=== PATIENT | male | born 1955 | race Caucasian/White ===

== ENCOUNTER 2018-11-07 22:08 | Emergency (ER) | payer OTHER, SELFPAY ==
[2018-11-07 22:09] VITALS: BP 127/87; PULSE 97; RESP 16; TEMP 36.9; O2SAT 96; BMI 27.4
--- NOTE | 2018-11-07 22:52 | RAD_ITS ---
STUDY: X-RAY - RIGHT ANKLE REASON FOR EXAM: Male, 62 years old. Infection TECHNIQUE: 3 view(s) of the ankle. COMPARISON: None. FINDINGS: Mild degenerative changes. Plantar calcaneal spur. No acute fracture. No dislocation. There is soft tissue swelling. Soft tissue ulceration along the superior aspect of the medial malleolus. No radiopaque foreign body. No periosteal reaction or osseous destruction identified. RAD/Ankle min 3 Views IMPRESSION: Soft tissue swelling with soft tissue ulceration. No acute fracture identified. Electronically Signed: Hussain Waggoner, at 23:06 EDT Tel , Service support ,
[2018-11-07 23:47] LABS: Anion Gap 7 (5-15); BUN 28 mg/dL (7-18); BUN/Creat Ratio 29.2 RATIO (10-20); Calcium,Total 8.8 mg/dL (8.5-10.1); Chloride 101 mmol/L (98-107); Creatinine, Serum 0.96 mg/dL (0.70-1.30); EST Glomerular Filtration Rate 84 mL/min (>60); Est Glom Filt Rate - Afr Amer 102 mL/min (>60); Estimated Creatinine Clearance 81.32 ml/min; Glucose 97 mg/dL (74-106); Potassium 4.1 mmol/L (3.5-5.1); Sodium Level 138 mmol/L (136-145)
[2018-11-07 23:49] LABS: Absolute Lymphocyte Count 1.03 X10^3/ul (0.83-4.51); Absolute Neutrophil Count 3.7 X10^3/uL (2.0-7.7); Basophil# 0.03 X10^3/uL; Basophil% 0.5 % (0-1); Eosinophil# 0.16 X10^3/uL; Eosinophils% 2.9 % (0-5); Hematocrit 37.9 % (40-54); Hemoglobin 12.4 g/dl (13.0-16.5); Lymphocyte # 1.03 X10^3/ul (4.0); Lymphocyte % 18.5 % (19-41); Mean Corp Hgb Conc 32.7 g/gl (32-36); Mean Corpuscular Hgb 29.5 pg (27.0-32.0); Mean Platelet Vol. 9.5 fl (6.2-12.0); Monocyte# 0.63 X10^3/uL; Monocyte% 11.3 % (0-10); Neutrophil # 3.71 X10^3/uL (2.7-7.7); Neutrophil % 66.8 % (47-70); Platelet Count 233 K/mm3 (150-450); RBC Distribution Width CV 13.6 % (11.6-14.6); RBC Distribution Width SD 44.1 fl (35.1-43.9); Red Blood Count 4.21 M/mm3 (4.6-6.2); White Blood Count 5.6 K/mm3 (4.4-11.0)
[2018-11-07 23:51] LABS: POSITIVE COUNT NO; POSITIVE DIFFERENTIAL NO; POSITIVE MORPHOLOGY NO
--- NOTE | 2018-11-08 00:17 | ED.VISSUMM ---
- ER Visit Summary Date of Service: 11/08/18 Chief Complaint: Right ankle wound History of Present Illness: The patient is a 62 M with a wound to the medial right ankle for the past 1 year. Patient states that he was on antibiotics at onset but has not followed up since. He is in a plan to see his doctor in December. He has not had fever or chills. Physical Examination: Vital signs unremarkable. Patient is afebrile. Heart is regular rate and rhythm. Lung sounds clear. Right lower extremity examination was a 4 x 2 7 m scabbed wound on the medial right ankle. There is no surrounding cellulitis. No drainage. Test Results: CBC was normal white count. Hemoglobin is 12.4. Chemistry studies unremarkable. Blood cultures were sent. Right ankle x-rays reveal no bony abnormality per my review. Emergency Department Course and Treatment: Wound was cleansed and antibiotic ointment placed. Dressing is applied. Patient will be referred to the wound center for follow-up. I do not see sign of acute infection at this time I do not think he needs oral antibiotics. Treatment Plan: [] Disposition: Discharge Impression: Chronic right ankle wound This note was generated with [employer] dictation software. It may contain incorrect words, spelling, and punctuation that were not noted in review of the chart prior to signing ED Disposition - Plan for ED Patient: Disposition: Home or Assisted Living Instructions: ED Wound Care Referrals: Delon Ocasio MD [Primary Care Provider] - Additional Instructions: Please call the Wound Center for follow-up as soon as possible [phone]
[2018-11-08 00:20] VITALS: BP 125/90; PULSE 87; PULSE 89; RESP 18; O2SAT 98
== END 2018-11-08 00:28 | disposition home or self-care (01) ==
PROVIDERS: Emergency Provider Emergency Medicine; Family Provider Family Medicine; PCP Family Medicine
DX: S91.001A Unspecified open wound, right ankle, initial encounter (principal); X58.XXXA Exposure to other specified factors, initial encounter; Y93.9 Activity, unspecified; Y92.9 Unspecified place or not applicable; I10 Essential (primary) hypertension; F20.9 Schizophrenia, unspecified; Z79.899 Other long term (current) drug therapy
CPT/HCPCS: 73610; 80048; 85025; 87040; 99283; A4216

== ENCOUNTER 2018-12-01 10:30 | Outpatient (RCR) | payer OTHER, SELFPAY ==
[2018-11-10 09:27] VITALS: BP 126/72; PULSE 112; RESP 18; TEMP 36.8; BMI 27.4
--- NOTE | 2018-11-10 13:08 | PCM.WC.PN ---
(1) Ulcer of right lower extremity with fat layer exposed Status: Acute Current Visit: Yes Code(s): L97.912 - Non-pressure chronic ulcer of unspecified part of right lower leg with fat layer exposed (2) Delayed wound healing Status: Acute Current Visit: Yes Code(s): T14.8XXD - Other injury of unspecified body region, subsequent encounter (3) Pain in right lower leg Status: Acute Current Visit: Yes Code(s): M79.661 - Pain in right lower leg (4) Lower extremity edema Status: Acute Current Visit: Yes Code(s): R60.0 - Localized edema (5) PVD (peripheral vascular disease) Status: Suspected Current Visit: Yes Code(s): I73.9 - Peripheral vascular disease, unspecified (6) Venous insufficiency (chronic) (peripheral) Status: Suspected Current Visit: Yes Code(s): I87.2 - Venous insufficiency (chronic) (peripheral) Type of Wound Date of Service: 11/10/18 Chief Complaint: right lower extremity ulcer - Physical Exam Vital Signs Temp Pulse Resp BP 98.2 F 112 H 18 126/72 H 11/10/18 09:27 11/10/18 09:27 11/10/18 09:27 11/10/18 09:27 Wound Measurements and Assessment WC - Nurse 1 - General Ulcer Measurement Start: 11/10/18 09:27 Freq: Status: Active Protocol: Activity Type Activity Date Activity User E-Sign Co-Sign Detail Recorded Client Recorded Date Recorded By Document 11/10/18 09:27 IA [id number] 11/10/18 09:41 IA 11/10/18 09:27 Wound Center Nurse 1 [Ulcer Assessment] #1 Right Medial Ankle -Current Size (cm) - Length 3.3 -Current Size (cm) - Width 2.4 -Current Size (cm) - Depth 0.3 -Total Square Cm 7.92 -Date of Last Picture (Recall this 11/10/18 field) -Photo Taken Yes -Tunneling No -Undermining/Tunneling No -Circular Undermining No -Exudate Amt Medium -Exudate Type Serosanguineous -Wound Margin Flat & Intact -Granulation Amt Medium (34-66%) -Granulation Quality Pale [place] -Necrosis Amt Medium (34-66%) -Necrotic Tissue Type Adherent Slough -Texture (Dee-wound Skin Appearance) Assessed -Moisture (Dee-wound Skin Appearance Assessed ) -Color (Dee-wound Skin Appearance) Assessed Hemosiderin Staining -Temperature (Dee-wound Skin No Abnormality Appearance) (Pt Warm) -Tenderness on Palpation (Dee-wound No Skin Appearance) -Ulcer Cleansing Rinsed/ Irrigated with Saline -Foul Odor after Cleansing No -Anesthetic Used 4% Lidocaine Solution [Edema Assessment] -Right Calf (cm) 37.6 -Right Ankle (cm) 24.3 -Left Calf (cm) 35 -Left Ankle (cm) 21.8 WC - Nurse 2 - General Ulcer CM Notes Start: 11/10/18 09:27 Freq: Status: Active Protocol: Activity Type Activity Date Activity User E-Sign Co-Sign Detail Recorded Client Recorded Date Recorded By Document 11/10/18 10:21 AN [id number] 11/10/18 10:27 AN 11/10/18 10:21 Wound Center Nurse 2 [Procedure/Treatment] #1 Right Medial Ankle -Time 10:25 -Correct Patient Yes -Correct Side, Site, Position Yes -Correct Procedure Yes -Procedure Performed Yes -Type of Procedure Debridement -Clinical Debridement Subcutaneous -Post Debridement Size (cm) - Length 3.5 -Post Debridement Size (cm) - Width 2.7 -Post Debridement Size (cm) - Depth 0.3 -Total Square Cm 9.45 -Wound/Ulcer Outcome Not Healed -Ulcer Cleansing Rinsed/ Irrigated with Saline -Foul Odor after Cleansing No -Bioengineered Tissue No -Bleeding Controlled with Pressure -Offloading No -Treatment Response Procedure Tolerated Well [See Physician Procedure note for Specifics] Pain Scale: 0-10 Numeric [Pain] -Is Patient Pain Free? Yes Debridement Note Post-Debridement Measurements/Treatment WC - Nurse 2 - General Ulcer CM Notes Start: 11/10/18 09:27 Freq: Status: Active Protocol: Activity Type Activity Date Activity User E-Sign Co-Sign Detail Recorded Client Recorded Date Recorded By Document 11/10/18 10:21 AN [id number] 11/10/18 10:27 AN 11/10/18 10:21 Wound Center Nurse 2 #1 Right Medial Ankle -Time 10:25 -Correct Patient Yes -Correct Side, Site, Position Yes -Correct Procedure Yes -Procedure Performed Yes -Type of Procedure Debridement -Clinical Debridement Subcutaneous -Post Debridement Size (cm) - Length 3.5 -Post Debridement Size (cm) - Width 2.7 -Post Debridement Size (cm) - Depth 0.3 -Total Square Cm 9.45 -Wound/Ulcer Outcome Not Healed -Ulcer Cleansing Rinsed/ Irrigated with Saline -Foul Odor after Cleansing No -Bioengineered Tissue No -Bleeding Controlled with Pressure -Offloading No -Treatment Response Procedure Tolerated Well Pain Scale: 0-10 Numeric Is Patient Pain Free? Yes Assessment/Plan Active Problems Ulcer of right lower extremity with fat layer exposed (Acute) Delayed wound healing (Acute) Pain in right lower leg (Acute) Lower extremity edema (Acute)
--- NOTE | 2018-11-10 13:16 | PN.PCM_ITS ---
(1) Ulcer of right lower extremity with fat layer exposed Status: Acute Current Visit: Yes Code(s): L97.912 - Non-pressure chronic ulcer of unspecified part of right lower leg with fat layer exposed (2) Delayed wound healing Status: Acute Current Visit: Yes Code(s): T14.8XXD - Other injury of unspecified body region, subsequent encounter (3) Pain in right lower leg Status: Acute Current Visit: Yes Code(s): M79.661 - Pain in right lower leg (4) Lower extremity edema Status: Acute Current Visit: Yes Code(s): R60.0 - Localized edema (5) PVD (peripheral vascular disease) Status: Suspected Current Visit: Yes Code(s): I73.9 - Peripheral vascular disease, unspecified (6) Venous insufficiency (chronic) (peripheral) Status: Suspected Current Visit: Yes Code(s): I87.2 - Venous insufficiency (chronic) (peripheral) Type of Wound Date of Service: 11/10/18 Chief Complaint: right lower extremity ulcer - Physical Exam Vital Signs Temp Pulse Resp BP 98.2 F 112 H 18 126/72 H 11/10/18 09:27 11/10/18 09:27 11/10/18 09:27 11/10/18 09:27 Wound Measurements and Assessment WC - Nurse 1 - General Ulcer Measurement Start: 11/10/18 09:27 Freq: Status: Active Protocol: Activity Type Activity Date Activity User E-Sign Co-Sign Detail Recorded Client Recorded Date Recorded By Document 11/10/18 09:27 CT [id number] 11/10/18 09:41 CT 11/10/18 09:27 Wound Center Nurse 1 [Ulcer Assessment] #1 Right Medial Ankle -Current Size (cm) - Length 3.3 -Current Size (cm) - Width 2.4 -Current Size (cm) - Depth 0.3 -Total Square Cm 7.92 -Date of Last Picture (Recall this 11/10/18 field) -Photo Taken Yes -Tunneling No -Undermining/Tunneling No -Circular Undermining No -Exudate Amt Medium -Exudate Type Serosanguineous -Wound Margin Flat & Intact -Granulation Amt Medium (34-66%) -Granulation Quality Pale [place] -Necrosis Amt Medium (34-66%) -Necrotic Tissue Type Adherent Slough -Texture (Dee-wound Skin Appearance) Assessed -Moisture (Dee-wound Skin Appearance Assessed ) -Color (Dee-wound Skin Appearance) Assessed Hemosiderin Staining -Temperature (Dee-wound Skin No Abnormality Appearance) (Pt Warm) -Tenderness on Palpation (Dee-wound No Skin Appearance) -Ulcer Cleansing Rinsed/ Irrigated with Saline -Foul Odor after Cleansing No -Anesthetic Used 4% Lidocaine Solution [Edema Assessment] -Right Calf (cm) 37.6 -Right Ankle (cm) 24.3 -Left Calf (cm) 35 -Left Ankle (cm) 21.8 WC - Nurse 2 - General Ulcer CM Notes Start: 11/10/18 09:27 Freq: Status: Active Protocol: Activity Type Activity Date Activity User E-Sign Co-Sign Detail Recorded Client Recorded Date Recorded By Document 11/10/18 10:21 AN [id number] 11/10/18 10:27 AN 11/10/18 10:21 Wound Center Nurse 2 [Procedure/Treatment] #1 Right Medial Ankle -Time 10:25 -Correct Patient Yes -Correct Side, Site, Position Yes -Correct Procedure Yes -Procedure Performed Yes -Type of Procedure Debridement -Clinical Debridement Subcutaneous -Post Debridement Size (cm) - Length 3.5 -Post Debridement Size (cm) - Width 2.7 -Post Debridement Size (cm) - Depth 0.3 -Total Square Cm 9.45 -Wound/Ulcer Outcome Not Healed -Ulcer Cleansing Rinsed/ Irrigated with Saline -Foul Odor after Cleansing No -Bioengineered Tissue No -Bleeding Controlled with Pressure -Offloading No -Treatment Response Procedure Tolerated Well [See Physician Procedure note for Specifics] Pain Scale: 0-10 Numeric [Pain] -Is Patient Pain Free? Yes Debridement Note Post-Debridement Measurements/Treatment WC - Nurse 2 - General Ulcer CM Notes Start: 11/10/18 09:27 Freq: Status: Active Protocol: Activity Type Activity Date Activity User E-Sign Co-Sign Detail Recorded Client Recorded Date Recorded By Document 11/10/18 10:21 AN [id number] 11/10/18 10:27 AN 11/10/18 10:21 Wound Center Nurse 2 #1 Right Medial Ankle -Time 10:25 -Correct Patient Yes -Correct Side, Site, Position Yes -Correct Procedure Yes -Procedure Performed Yes -Type of Procedure Debridement -Clinical Debridement Subcutaneous -Post Debridement Size (cm) - Length 3.5 -Post Debridement Size (cm) - Width 2.7 -Post Debridement Size (cm) - Depth 0.3 -Total Square Cm 9.45 -Wound/Ulcer Outcome Not Healed -Ulcer Cleansing Rinsed/ Irrigated with Saline -Foul Odor after Cleansing No -Bioengineered Tissue No -Bleeding Controlled with Pressure -Offloading No -Treatment Response Procedure Tolerated Well Pain Scale: 0-10 Numeric Is Patient Pain Free? Yes Assessment/Plan Active Problems Ulcer of right lower extremity with fat layer exposed (Acute) Delayed wound healing (Acute) Pain in right lower leg (Acute) Lower extremity edema (Acute)
--- NOTE | 2018-11-10 13:21 | HP.PCM_ITS ---
(1) Ulcer of right lower extremity with fat layer exposed Status: Acute Current Visit: Yes Code(s): L97.912 - Non-pressure chronic ulcer of unspecified part of right lower leg with fat layer exposed (2) Delayed wound healing Status: Acute Current Visit: Yes Code(s): T14.8XXD - Other injury of unspecified body region, subsequent encounter (3) Pain in right lower leg Status: Acute Current Visit: Yes Code(s): M79.661 - Pain in right lower leg (4) Lower extremity edema Status: Acute Current Visit: Yes Code(s): R60.0 - Localized edema (5) PVD (peripheral vascular disease) Status: Suspected Current Visit: Yes Code(s): I73.9 - Peripheral vascular disease, unspecified (6) Venous insufficiency (chronic) (peripheral) Status: Suspected Current Visit: Yes Code(s): I87.2 - Venous insufficiency (chronic) (peripheral) History of Present Illness Date of Service: 11/10/18 Chief Complaint: right lower extremity ulcer History of Wound: This 62-year-old male was referred to the wound healing center for right medial lower extremity ulcer. Patient says this ulcer has been open for close to a year. He says when he initially noticed it, he was seen at an urgent care facility where he took an antibiotic. He said he never followed up with anyone for the ulcer after that. He says he has been dressing the site on his own with Neosporin and a bandage. He says the ulcer site is not getting any worse, but it is not improving either. He denies any purulence to the area or any other signs of infection. Past Medical History Allergies/Adverse Reactions: Allergies fluphenazine enanthate [From Prolixin] Adverse Reaction (Verified 02/12/15 01:02) Vomiting fluphenazine HCl [From Prolixin] Adverse Reaction (Verified 02/12/15 01:02) Vomiting haloperidol [From Haldol] Adverse Reaction (Verified 02/12/15 01:02) Other haloperidol lactate [From Haldol] Adverse Reaction (Verified 02/12/15 01:02) Other trifluoperazine [From Stelazine] Adverse Reaction (Verified 11/07/18 22:25) Vomiting Home Medications: Ambulatory Orders Medication Instructions Recorded Chlorpromazine HCl 150 mg PO QHS 11/07/18 Lisinopril [Zestril] 10 mg PO DAILY 11/07/18 Smoking Status: Never smoker Review of Systems Constitutional: Denies: Chills, Fever, Weight Change Cardiovascular: Denies: Chest Pain, Palpitations Respiratory: Denies: Cough, Shortness of Breath Gastrointestinal: Denies: Diarrhea, Nausea, Vomiting Musculoskeletal: Reports: Leg Pain Skin: Reports: - - ulcer right lower leg - Physical Exam Vital Signs Temp Pulse Resp BP 98.2 F 112 H 18 126/72 H 11/10/18 09:27 11/10/18 09:27 11/10/18 09:27 11/10/18 09:27 General: Alert, Oriented x3, Cooperative, No apparent distress Extremities: No cyanosis, Capillary Refill Less than 3 Seconds - To all distal digits, No Calf Tenderness - Negative Jeny and Bonilla signs bilateral, Diminished Peripheral Pulses - DP pulse palpable and PT pulse nonpalpable, Edema - Bilateral lower extremity edema with right being worse than left Skin: Ulcer/ Wound - Ulcer noted to right medial ankle with fat layer exposed. Measurements are noted below. The base is a mixture of adherent slough, fibrin, biofilm, granular tissue, and some slight surrounding hyperkeratotic tissue. There is no probing to bone, no tracking, no undermining, no purulence, no malodor, no surrounding cellulitis, and no increase in warmth., - - Hemosiderin skin deposit changes appreciated close to ulcer site Wound Measurements and Assessment WC - Nurse 1 - General Ulcer Measurement Start: 11/10/18 09:27 Freq: Status: Active Protocol: Activity Type Activity Date Activity User E-Sign Co-Sign Detail Recorded Client Recorded Date Recorded By Document 11/10/18 09:27 MA [id number] 11/10/18 09:41 MA 11/10/18 09:27 Wound Center Nurse 1 [Ulcer Assessment] #1 Right Medial Ankle -Current Size (cm) - Length 3.3 -Current Size (cm) - Width 2.4 -Current Size (cm) - Depth 0.3 -Total Square Cm 7.92 -Date of Last Picture (Recall this 11/10/18 field) -Photo Taken Yes -Tunneling No -Undermining/Tunneling No -Circular Undermining No -Exudate Amt Medium -Exudate Type Serosanguineous -Wound Margin Flat & Intact -Granulation Amt Medium (34-66%) -Granulation Quality Pale [place] -Necrosis Amt Medium (34-66%) -Necrotic Tissue Type Adherent Slough -Texture (Dee-wound Skin Appearance) Assessed -Moisture (Dee-wound Skin Appearance Assessed ) -Color (Dee-wound Skin Appearance) Assessed Hemosiderin Staining -Temperature (Dee-wound Skin No Abnormality Appearance) (Pt Warm) -Tenderness on Palpation (Dee-wound No Skin Appearance) -Ulcer Cleansing Rinsed/ Irrigated with Saline -Foul Odor after Cleansing No -Anesthetic Used 4% Lidocaine Solution [Edema Assessment] -Right Calf (cm) 37.6 -Right Ankle (cm) 24.3 -Left Calf (cm) 35 -Left Ankle (cm) 21.8 WC - Nurse 2 - General Ulcer CM Notes Start: 11/10/18 09:27 Freq: Status: Active Protocol: Activity Type Activity Date Activity User E-Sign Co-Sign Detail Recorded Client Recorded Date Recorded By Document 11/10/18 10:21 AN [id number] 11/10/18 10:27 AN 11/10/18 10:21 Wound Center Nurse 2 [Procedure/Treatment] #1 Right Medial Ankle -Time 10:25 -Correct Patient Yes -Correct Side, Site, Position Yes -Correct Procedure Yes -Procedure Performed Yes -Type of Procedure Debridement -Clinical Debridement Subcutaneous -Post Debridement Size (cm) - Length 3.5 -Post Debridement Size (cm) - Width 2.7 -Post Debridement Size (cm) - Depth 0.3 -Total Square Cm 9.45 -Wound/Ulcer Outcome Not Healed -Ulcer Cleansing Rinsed/ Irrigated with Saline -Foul Odor after Cleansing No -Bioengineered Tissue No -Bleeding Controlled with Pressure -Offloading No -Treatment Response Procedure Tolerated Well [See Physician Procedure note for Specifics] Pain Scale: 0-10 Numeric [Pain] -Is Patient Pain Free? Yes Musculoskeletal: Tenderness - With manipulation of ulcer site Neurological: Sensory exam intact to light touch and pain Psych/Mental Status: Normal Affect, Appropriate Debridement Note Post-Debridement Measurements/Treatment [facility] - Nurse 2 - General Ulcer CM Notes Start: 11/10/18 09:27 Freq: Status: Active Protocol: Activity Type Activity Date Activity User E-Sign Co-Sign Detail Recorded Client Recorded Date Recorded By Document 11/10/18 10:21 AN [id number] 11/10/18 10:27 AN 11/10/18 10:21 Wound Center Nurse 2 #1 Right Medial Ankle -Time 10:25 -Correct Patient Yes -Correct Side, Site, Position Yes -Correct Procedure Yes -Procedure Performed Yes -Type of Procedure Debridement -Clinical Debridement Subcutaneous -Post Debridement Size (cm) - Length 3.5 -Post Debridement Size (cm) - Width 2.7 -Post Debridement Size (cm) - Depth 0.3 -Total Square Cm 9.45 -Wound/Ulcer Outcome Not Healed -Ulcer Cleansing Rinsed/ Irrigated with Saline -Foul Odor after Cleansing No -Bioengineered Tissue No -Bleeding Controlled with Pressure -Offloading No -Treatment Response Procedure Tolerated Well Pain Scale: 0-10 Numeric Is Patient Pain Free? Yes Wound debrided: Right medial ankle Laterality: Right Type of Debridement: Excisional debridement Anesthesia Used: 4% Lidocaine Solution Depth: in the subcutaneous layer Percentage of wound debrided: 100 Instrument Used: 5mm curette Tissue Removed: Adherent slough, fibrin, biofilm, hyperkeratotic tissue Severity: Fat Layer Exposed Amount of bleeding with debridement: Mild Bleeding Controlled with: Pressure Patient tolerated procedure well Assessment/Plan Active Problems Ulcer of right lower extremity with fat layer exposed (Acute) Delayed wound healing (Acute) Pain in right lower leg (Acute) Lower extremity edema (Acute) Assessment: Ulcer right medial ankle. Pain right lower extremity. Lower extremity edema. Other comorbidities Plan: Initial patient examination and evaluation was performed in great detail today. A subcutaneous excisional debridement was performed as noted in the clinical panel to the ulcer site. Once complete, the ulcer site was dressed with Aquacel Ag followed by a dry sterile dressing and Tubigrip for compression. The patient was instructed to change his dressing in this manner on a daily basis. The importance of compression as well as keeping pressure off of his ulcer site was stressed in great detail today. Patient says he understands this. X-rays taken of the area recently at the [facility] showed soft tissue swelling but no signs of osteomyelitis or soft tissue emphysema. LEAS and venous Doppler exams were ordered today for the patient and we will continue to monitor for results from the studies. Clinically, the ulcer site does not appear to be infected so no cultures were taken today and no antibiotics were prescribed at this time. A diet high in protein was recommended for this patient to help optimize ulcer healing potential. All questions were answered to the patient's satisfaction. He was educated on all signs and symptoms of local and systemic infection and he was instructed to go to the emergency room immediately should he notice any of these. Otherwise, patient will follow back up in clinic in 1 week to check on progress, or sooner if needed.
[2018-11-17 09:49] VITALS: BP 134/68; PULSE 108; RESP 16; TEMP 36.5; BMI 27.4
--- NOTE | 2018-11-17 10:09 | PN.PCM_ITS ---
(1) Ulcer of right lower extremity with fat layer exposed Status: Acute Current Visit: Yes Code(s): L97.912 - Non-pressure chronic ulcer of unspecified part of right lower leg with fat layer exposed (2) Delayed wound healing Status: Acute Current Visit: Yes Code(s): T14.8XXD - Other injury of unspecified body region, subsequent encounter (3) Pain in right lower leg Status: Acute Current Visit: Yes Code(s): M79.661 - Pain in right lower leg (4) Lower extremity edema Status: Acute Current Visit: Yes Code(s): R60.0 - Localized edema (5) PVD (peripheral vascular disease) Status: Suspected Current Visit: Yes Code(s): I73.9 - Peripheral vascular disease, unspecified (6) Venous insufficiency (chronic) (peripheral) Status: Suspected Current Visit: Yes Code(s): I87.2 - Venous insufficiency (chronic) (peripheral) Type of Wound Chief Complaint: right lower extremity ulcer History of Wound: This 62-year-old male was referred to the wound healing center for right medial lower extremity ulcer. Patient says this ulcer has been open for close to a year. He says when he initially noticed it, he was seen at an urgent care facility where he took an antibiotic. He said he never followed up with anyone for the ulcer after that. He says he has been dressing the site on his own with Neosporin and a bandage. He says the ulcer site is not getting any worse, but it is not improving either. He denies any purulence to the area or any other signs of infection. Progress of Wound: Ulcer site stable. Patient has been having daily aquacel ag dressing changes and compressin. Patient denies any nausea, vomiting, fever, or chills. - Physical Exam Vital Signs Temp Pulse Resp BP 97.7 F L 108 H 16 134/68 H 11/17/18 09:49 11/17/18 09:49 11/17/18 09:49 11/17/18 09:49 General: Alert, Oriented x3, Cooperative, No apparent distress Extremities: No cyanosis, Capillary Refill Less than 3 Seconds, No Calf Tenderness - To all distal digits negative Jeny and Bonilla signs bilateral, Diminished Peripheral Pulses - DP pulse palpable and PT pulse nonpalpable, Edema - Bilateral lower extremity edema with right being worse than left Skin: Ulcer/ Wound - Ulcer noted to right medial ankle with fat layer exposed. Measurements are noted below. The base is a mixture of adherent slough, fibrin, biofilm, granular tissue, and some slight surrounding hyperkeratotic tissue. There is no probing to bone, no tracking, no undermining, no purulence, no malodor, no surrounding cellulitis, and no increase in warmth., - - Hemosiderin skin deposit changes appreciated close to ulcer site Wound Measurements and Assessment WC - Nurse 1 - General Ulcer Measurement Start: 11/10/18 09:27 Freq: Status: Active Protocol: Activity Type Activity Date Activity User E-Sign Co-Sign Detail Recorded Client Recorded Date Recorded By Document 11/17/18 09:49 DL [id number] 11/17/18 09:52 DL 11/17/18 09:49 Wound Center Nurse 1 [Ulcer Assessment] #1 Right Medial Ankle -Current Size (cm) - Length 3.1 -Current Size (cm) - Width 1.8 -Current Size (cm) - Depth 0.2 -Total Square Cm 5.58 -Photo Taken No -Exudate Amt Medium -Exudate Type Serosanguineous -Wound Margin Distinct, Outline Attached -Granulation Amt Small (1-33%) -Granulation Quality [place] -Necrosis Amt Large (67-100%) -Necrotic Tissue Type Adherent Slough -Structure Exposed N/A -Texture (Dee-wound Skin Appearance) Localized Edema Scarring -Moisture (Dee-wound Skin Appearance No Abnormality ) -Color (Dee-wound Skin Appearance) Erythema Rubor -Temperature (Dee-wound Skin No Abnormality Appearance) (Pt Warm) -Tenderness on Palpation (Dee-wound Yes Skin Appearance) -Ulcer Cleansing Wound Cleanser -Foul Odor after Cleansing No -Anesthetic Used 4% Lidocaine Solution [Edema Assessment] -Right Calf (cm) 35 -Right Ankle (cm) 21.5 WC - Nurse 2 - General Ulcer CM Notes Start: 11/10/18 09:27 Freq: Status: Active Protocol: Activity Type Activity Date Activity User E-Sign Co-Sign Detail Recorded Client Recorded Date Recorded By Document 11/17/18 09:56 DL [id number] 11/17/18 10:03 DL 11/17/18 09:56 Wound Center Nurse 2 [Procedure/Treatment] #1 Right Medial Ankle -Time 09:59 -Correct Patient Yes -Correct Side, Site, Position Yes -Correct Procedure Yes -Procedure Performed Yes -Type of Procedure Debridement -Clinical Debridement Subcutaneous -Post Debridement Size (cm) - Length 3.4 -Post Debridement Size (cm) - Width 2.7 -Post Debridement Size (cm) - Depth 0.3 -Total Square Cm 9.18 -Wound/Ulcer Outcome Not Healed -Ulcer Cleansing Rinsed/ Irrigated with Saline -Foul Odor after Cleansing No -Bioengineered Tissue No -Bleeding Controlled with Pressure -Offloading No -Treatment Response Procedure Tolerated Well [See Physician Procedure note for Specifics] Pain Scale: 0-10 Numeric [Pain] -Is Patient Pain Free? Yes Musculoskeletal: Tenderness - With manipulation of ulcer site Neurological: Sensory exam intact to light touch and pain Psych/Mental Status: Normal Affect, Appropriate Debridement Note Post-Debridement Measurements/Treatment WC - Nurse 2 - General Ulcer CM Notes Start: 11/10/18 09:27 Freq: Status: Active Protocol: Activity Type Activity Date Activity User E-Sign Co-Sign Detail Recorded Client Recorded Date Recorded By Document 11/10/18 10:21 AN [id number] 11/10/18 10:27 AN Document 11/17/18 09:56 DL [id number] 11/17/18 10:03 DL 11/10/18 11/17/18 10:21 09:56 Wound Center Nurse 2 #1 Right Medial Ankle -Time 10:25 09:59 -Correct Patient Yes Yes -Correct Side, Site, Position Yes Yes -Correct Procedure Yes Yes -Procedure Performed Yes Yes -Type of Procedure Debridement Debridement -Clinical Debridement Subcutaneous Subcutaneous -Post Debridement Size (cm) - Length 3.5 3.4 -Post Debridement Size (cm) - Width 2.7 2.7 -Post Debridement Size (cm) - Depth 0.3 0.3 -Total Square Cm 9.45 9.18 -Wound/Ulcer Outcome Not Healed Not Healed -Ulcer Cleansing Rinsed/ Rinsed/ Irrigated with Irrigated with Saline Saline -Foul Odor after Cleansing No No -Bioengineered Tissue No No -Bleeding Controlled with Pressure Pressure -Offloading No No -Treatment Response Procedure Procedure Tolerated Well Tolerated Well Pain Scale: 0-10 Numeric Is Patient Pain Free? Yes Yes Wound debrided: Right medial ankle Laterality: Right Type of Debridement: Excisional debridement Anesthesia Used: 4% Lidocaine Solution Depth: in the subcutaneous layer Percentage of wound debrided: 100 Instrument Used: 5mm curette Tissue Removed: Adherent slough, fibrin, biofilm, hyperkeratotic tissue Severity: Fat Layer Exposed Amount of bleeding with debridement: Mild Bleeding Controlled with: Pressure Patient tolerated procedure well Assessment/Plan Active Problems Ulcer of right lower extremity with fat layer exposed (Acute) Delayed wound healing (Acute) Pain in right lower leg (Acute) Lower extremity edema (Acute) Assessment: Ulcer right medial ankle. Pain right lower extremity. Lower extremity edema. Other comorbidities Plan: Patient was carefully examined and evaluated again today for right medial ankle ulcer. A subcutaneous excisional debridement was performed as noted in the clinical panel. Once complete, the ulcer site was dressed with Aquacel Ag followed by a dry sterile dressing and Tubigrip for compression. The patient was instructed to change his dressing in this manner on a daily basis. The importance of compression as well as keeping pressure off of his ulcer site was stressed in great detail today. Patient says he understands this. X-rays taken of the area recently at the [place] [facility] showed soft tissue swelling but no signs of osteomyelitis or soft tissue emphysema. LEAS and venous Doppler exams were ordered and patient will have these completed next week prior to his wound center appointment. We will continue to monitor for results. A diet high in protein was recommended for this patient to help optimize ulcer healing potential. All questions were answered to the patient's satisfaction. He was educated on all signs and symptoms of local and systemic infection and he was instructed to go to the emergency room immediately should he notice any of these. Otherwise, patient will follow back up in clinic in 1 week to check on progress, or sooner if needed.
--- NOTE | 2018-11-23 12:26 | ART_ITS ---
Reason For Study: PVD Procedure A bilateral lower extremity continuous wave Doppler with analog waveform analysis,segmental pressures,and ankle brachial indexes without exercise. Left Segmental Pressures Left brachial= 116mmHg. Left posterior tibial artery = 157mmHg. Left dorsalis pedis artery = 149mmHg. Left digit = 126 mmHg. The left dorsalis pedis waveforms are triphasic. The left posterior tibial artery waveforms are triphasic. Right Segmental Pressures Right brachial= 122mmHg. Right posterior tibial artery = 163mmHg. Right dorsalis pedis artery = 161mmHg. Right digit = 125 mmHg. The right dorsalis pedis waveforms are triphasic. The right posterior tibial artery waveforms are triphasic. Indices The right ankle brachial index by the dorsalis pedis is 1.32. The right ankle brachial index by the posterior tibial artery is 1.34. The right digital-brachial index is 1.02. The left ankle brachial index by the dorsalis pedis is 1.22. The left ankle brachial index by the posterior tibial artery is 1.29. The left digital-brachial index is 1.03. Interpretation Summary Triphasic Doppler waveforms are noted at ankle level bilaterally. Pulse-volume waveform amplitudes appear satisfactory at all levels bilaterally, including low-thigh, calf, ankle, and digital levels. Resting ankle-brachial indices are normal bilaterally. Digital-brachial indices are bilaterally normal. There is no evidence of significant arterial occlusive disease in the lower extremities bilaterally. Ordering Physician: Christopher Chapa Referring Physician: MD Ninfa Delon Performed By: Nayeli White RVT
--- NOTE | 2018-11-23 12:26 | VDLE_ITS ---
Reason For Study: PVD RIGHT LEFT CFV is compressible, spontaneous, phasic, CFV is compressible, spontaneous, phasic, competent and demonstrates normal competent, and demonstrates normal augmentation. augmentation. FV is compressible, spontaneous, phasic, FV is compressible, spontaneous, phasic, competent and demonstrates normal competent and demonstrates normal augmentation. augmentation. POP V is compressible, spontaneous, phasic, POP V is compressible, spontaneous, phasic, competent and demonstrates normal competent and demonstrates normal augmentation. augmentation. T/P Trunk is compressible. T/P Trunk is compressible. PTV is compressible. PTV is compressible. RT PerV is compressible. LT PerV is compressible. SFJ is competent. SFJ is competent. GSV is INCOMPETENT throughout for greater GSV is INCOMPETENT thoughout for greater than than 0.5 seconds and measures 0.17 x 0.19 cm. 0.5 seconds and measures 0.15 x 0.16 cm. INCOMPETENT enterprise application administrator 27 cm above medial SSV is INCOMPETENT for greater than 0.5 malleolus. seconds and measures 0.31 x 0.37 cm. SSV is INCOMPETENT for greater than 0.5 seconds and measures 0.73 x 0.85 cm. Procedure Exam performed in department. A preliminary report was called and/or faxed to . Interpretation Summary Deep veins of the lower extremities are bilaterally patent and compressible segmentally. There is no evidence of deep vein thrombosis on either side. Valvular competence appears intact within the proximal deep venous systems bilaterally. The greater saphenous veins appear bilaterally patent and compressible segmentally. Sapheno-femoral junctions are bilaterally competent . Segmental valvular incompetence is noted within the greater saphenous veins bilaterally. Small saphenous veins are patent and incompetent bilaterally. An incompetent enterprise application administrator vein is noted in the right calf, located 27 centimeters proximal to the right medial malleolus. Ordering Physician: Christopher Chapa Referring Physician: MD Ninfa Delon Performed By: Nayeli White RVT
[2018-11-24 10:33] VITALS: BP 108/72; PULSE 108; RESP 16; TEMP 37.1; BMI 27.4
--- NOTE | 2018-11-24 13:34 | PN.PCM_ITS ---
(1) Ulcer of right lower extremity with fat layer exposed Status: Acute Current Visit: Yes Code(s): L97.912 - Non-pressure chronic ulcer of unspecified part of right lower leg with fat layer exposed (2) Delayed wound healing Status: Acute Current Visit: Yes Code(s): T14.8XXD - Other injury of unspecified body region, subsequent encounter (3) Pain in right lower leg Status: Acute Current Visit: Yes Code(s): M79.661 - Pain in right lower leg (4) Lower extremity edema Status: Acute Current Visit: Yes Code(s): R60.0 - Localized edema (5) PVD (peripheral vascular disease) Status: Suspected Current Visit: Yes Code(s): I73.9 - Peripheral vascular disease, unspecified (6) Venous insufficiency (chronic) (peripheral) Status: Suspected Current Visit: Yes Code(s): I87.2 - Venous insufficiency (chronic) (peripheral) Type of Wound Chief Complaint: right lower extremity ulcer History of Wound: This 62-year-old male was referred to the wound healing center for right medial lower extremity ulcer. Patient says this ulcer has been open for close to a year. He says when he initially noticed it, he was seen at an urgent care facility where he took an antibiotic. He said he never followed up with anyone for the ulcer after that. He says he has been dressing the site on his own with Neosporin and a bandage. He says the ulcer site is not getting any worse, but it is not improving either. He denies any purulence to the area or any other signs of infection. Progress of Wound: Ulcer site stable. Patient has been having daily aquacel ag dressing changes and compressin. Patient denies any nausea, vomiting, fever, or chills. - Physical Exam Vital Signs Temp Pulse Resp BP 98.7 F 108 H 16 108/72 11/24/18 10:33 11/24/18 10:33 11/24/18 10:33 11/24/18 10:33 General: Alert, Oriented x3, Cooperative, No apparent distress Extremities: Capillary Refill Less than 3 Seconds - To all distal digits, No Calf Tenderness - Negative Jeny and Bonilla signs bilateral, Diminished Peripheral Pulses, Edema - Bilateral lower extremity edema with right being worse than left Skin: Ulcer/ Wound - Ulcer noted to right medial ankle with fat layer exposed. Measurements are noted below. The base is a mixture of adherent slough, fibrin, biofilm, granular tissue, and some slight surrounding hyperkeratotic tissue. There is no probing to bone, no tracking, no undermining, no purulence, no malodor, no surrounding cellulitis, and no increase in warmth, - - Hemosiderin skin deposit changes appreciated close to ulcer site Wound Measurements and Assessment WC - Nurse 1 - General Ulcer Measurement Start: 11/10/18 09:27 Freq: Status: Active Protocol: Activity Type Activity Date Activity User E-Sign Co-Sign Detail Recorded Client Recorded Date Recorded By Document 11/24/18 10:33 BM [id number] 11/24/18 10:[address] [facility] 11/24/18 10:33 Wound Center Nurse 1 [Ulcer Assessment] #1 Right Medial Ankle -Combined with other wound No -Current Size (cm) - Length 4.4 -Current Size (cm) - Width 2 -Current Size (cm) - Depth 0.2 -Total Square Cm 8.8 -Photo Taken No -Epithelialization None Present -Tunneling No -Undermining/Tunneling No -Circular Undermining No -Exudate Amt Small -Exudate Type Serosanguineous -Wound Margin Distinct, Outline Attached -Granulation Amt Medium (34-66%) -Granulation Quality Red -Slough/Fibrin Yes -Necrosis Amt Medium (34-66%) -Necrotic Tissue Type Adherent Slough -Texture (Dee-wound Skin Appearance) Assessed Scarring -Moisture (Dee-wound Skin Appearance Assessed ) Dry/Scaly -Color (Dee-wound Skin Appearance) Assessed Hemosiderin Staining -Temperature (Dee-wound Skin No Abnormality Appearance) (Pt Warm) -Tenderness on Palpation (Dee-wound No Skin Appearance) -Ulcer Cleansing Rinsed/ Irrigated with Saline -Foul Odor after Cleansing No -Anesthetic Used 5% Lidocaine Gel [Edema Assessment] -Lower Limb Edema Present No -Right Calf (cm) 37.5 -Right Ankle (cm) 22.5 WC - Nurse 2 - General Ulcer CM Notes Start: 11/10/18 09:27 Freq: Status: Active Protocol: Activity Type Activity Date Activity User E-Sign Co-Sign Detail Recorded Client Recorded Date Recorded By Document 11/24/18 11:26 AN [id number] 11/24/18 11:30 AN 11/24/18 11:26 Wound Center Nurse 2 [Procedure/Treatment] #1 Right Medial Ankle -Time 11:28 -Correct Patient Yes -Correct Side, Site, Position Yes -Correct Procedure Yes -Procedure Performed Yes -Type of Procedure Debridement -Clinical Debridement Subcutaneous -Post Debridement Size (cm) - Length 3.3 -Post Debridement Size (cm) - Width 2.5 -Post Debridement Size (cm) - Depth 0.3 -Total Square Cm 8.25 -Wound/Ulcer Outcome Amputation -Ulcer Cleansing Rinsed/ Irrigated with Saline -Foul Odor after Cleansing No -Bleeding Controlled with Pressure -Offloading No -Treatment Response Procedure Tolerated Well [See Physician Procedure note for Specifics] Pain Scale: 0-10 Numeric [Pain] -Is Patient Pain Free? Yes Musculoskeletal: Tenderness - With manipulation of ulcer site Neurological: Sensory exam intact to light touch and pain Psych/Mental Status: Normal Affect, Appropriate Debridement Note Post-Debridement Measurements/Treatment WC - Nurse 2 - General Ulcer CM Notes Start: 11/10/18 09:27 Freq: Status: Active Protocol: Activity Type Activity Date Activity User E-Sign Co-Sign Detail Recorded Client Recorded Date Recorded By Document 11/10/18 10:21 AN [id number] 11/10/18 10:27 AN Document 11/17/18 09:56 DL [id number] 11/17/18 10:03 DL Document 11/24/18 11:26 AN [id number] 11/24/18 11:30 AN 11/10/18 11/17/18 11/24/18 10:21 09:56 11:26 Wound Center Nurse 2 #1 Right Medial Ankle -Time 10:25 09:59 11:28 -Correct Patient Yes Yes Yes -Correct Side, Site, Position Yes Yes Yes -Correct Procedure Yes Yes Yes -Procedure Performed Yes Yes Yes -Type of Procedure Debridement Debridement Debridement -Clinical Debridement Subcutaneous Subcutaneous Subcutaneous -Post Debridement Size (cm) - Length 3.5 3.4 3.3 -Post Debridement Size (cm) - Width 2.7 2.7 2.5 -Post Debridement Size (cm) - Depth 0.3 0.3 0.3 -Total Square Cm 9.45 9.18 8.25 -Wound/Ulcer Outcome Not Healed Not Healed Amputation -Ulcer Cleansing Rinsed/ Rinsed/ Rinsed/ Irrigated with Irrigated with Irrigated with Saline Saline Saline -Foul Odor after Cleansing No No No -Bioengineered Tissue No No -Bleeding Controlled with Pressure Pressure Pressure -Offloading No No No -Treatment Response Procedure Procedure Procedure Tolerated Well Tolerated Well Tolerated Well Pain Scale: 0-10 Numeric Is Patient Pain Free? Yes Yes Yes Wound debrided: Right medial ankle Laterality: Right Type of Debridement: Excisional debridement Anesthesia Used: 4% Lidocaine Solution Depth: in the subcutaneous layer Percentage of wound debrided: 100 Instrument Used: 5mm curette Tissue Removed: Adherent slough, fibrin, biofilm, hyperkeratotic tissue Severity: Fat Layer Exposed Amount of bleeding with debridement: Mild Bleeding Controlled with: Pressure Patient tolerated procedure well Assessment/Plan Active Problems Ulcer of right lower extremity with fat layer exposed (Acute) Delayed wound healing (Acute) Pain in right lower leg (Acute) Lower extremity edema (Acute) Assessment: Ulcer right medial ankle. Pain right lower extremity. Lower extremity edema. Other comorbidities Plan: Patient was carefully examined and evaluated again today for right medial ankle ulcer. A subcutaneous excisional debridement was performed as noted in the clinical panel. Once complete, the ulcer site was dressed with an Unna boot followed by compression dressing. The patient will follow-up early next week to make sure he is tolerating this dressing well. Patient was instructed to go to the emergency room or call the wound healing center if he notices any issues prior to then with his dressing. The importance of compression as well as keeping pressure off of his ulcer site was stressed in great detail today. Patient says he understands this. X-rays taken of the area recently at the [place] [facility] showed soft tissue swelling but no signs of osteomyelitis or soft tissue emphysema. LEAS and venous Doppler exams were reviewed which were read by the vascular specialist as showing sufficient blood flow to the lower extremity, however there was incompetence with veins in bilateral lower extremities. Full detailed report is in patient's chart. A diet high in protein was recommended for this patient to help optimize ulcer healing potential. All questions were answered to the patient's satisfaction. He was educated on all signs and symptoms of local and systemic infection and he was instructed to go to the emergency room immediately should he notice any of these. Otherwise, patient will follow back up in clinic in 1 week to check on progress, or sooner if needed.
[2018-11-29 08:44] VITALS: BP 137/79; PULSE 102; RESP 18; TEMP 36.8; BMI 27.4
[2018-12-01 10:38] VITALS: BP 119/76; PULSE 105; RESP 18; TEMP 36.4; BMI 27.4
--- NOTE | 2018-12-01 10:53 | PCM.WC.PN ---
(1) Ulcer of right lower extremity with fat layer exposed Status: Acute Current Visit: Yes Code(s): L97.912 - Non-pressure chronic ulcer of unspecified part of right lower leg with fat layer exposed (2) Delayed wound healing Status: Acute Current Visit: Yes Code(s): T14.8XXD - Other injury of unspecified body region, subsequent encounter (3) Pain in right lower leg Status: Acute Current Visit: Yes Code(s): M79.661 - Pain in right lower leg (4) Lower extremity edema Status: Acute Current Visit: Yes Code(s): R60.0 - Localized edema (5) PVD (peripheral vascular disease) Status: Suspected Current Visit: Yes Code(s): I73.9 - Peripheral vascular disease, unspecified (6) Venous insufficiency (chronic) (peripheral) Status: Suspected Current Visit: Yes Code(s): I87.2 - Venous insufficiency (chronic) (peripheral) Type of Wound Chief Complaint: right lower extremity ulcer History of Wound: This 62-year-old male was referred to the wound healing center for right medial lower extremity ulcer. Patient says this ulcer has been open for close to a year. He says when he initially noticed it, he was seen at an urgent care facility where he took an antibiotic. He said he never followed up with anyone for the ulcer after that. He says he has been dressing the site on his own with Neosporin and a bandage. He says the ulcer site is not getting any worse, but it is not improving either. He denies any purulence to the area or any other signs of infection. Progress of Wound: Ulcer shows significant improvement this week. Patient has been wearing unna boot for last week. Patient denies any nausea, vomiting, fever, or chills. - Physical Exam Vital Signs Temp Pulse Resp BP 97.5 F L 105 H 18 119/76 12/01/18 10:38 12/01/18 10:38 12/01/18 10:38 12/01/18 10:38 General: Alert, Oriented x3, Cooperative, No apparent distress Extremities: Capillary Refill Less than 3 Seconds - To all distal digits, No Calf Tenderness - Negative Jeny and Bonilla signs bilateral, Diminished Peripheral Pulses, Edema - Bilateral lower extremity edema with right being worse than left Skin: Ulcer/ Wound - Ulcer noted to right medial ankle with fat layer exposed. Measurements are noted below. The base is a mixture of adherent slough, fibrin, granular tissue, and some slight surrounding hyperkeratotic tissue. There is no probing to bone, no tracking, no undermining, no purulence, no malodor, no surrounding cellulitis, and no increase in warmth, - - Hemosiderin skin deposit changes appreciated close to ulcer site Wound Measurements and Assessment WC - Nurse 1 - General Ulcer Measurement Start: 11/10/18 09:27 Freq: Status: Active Protocol: Activity Type Activity Date Activity User E-Sign Co-Sign Detail Recorded Client Recorded Date Recorded By Document 11/29/18 08:44 AN [id number] 11/29/18 08:58 AN Document 12/01/18 10:38 DL [id number] 12/01/18 10:42 DL 11/29/18 12/01/18 08:44 10:38 Wound Center Nurse 1 [Ulcer Assessment] #1 Right Medial Ankle -Current Size (cm) - Length 2.7 -Current Size (cm) - Width 1.4 -Current Size (cm) - Depth 0.1 -Total Square Cm 3.78 -Photo Taken No No -Exudate Amt Medium Small -Exudate Type Serosanguineous Serosanguineous -Wound Margin Distinct, Distinct, Outline Outline Attached Attached -Granulation Amt Medium (34-66%) Large (67-100%) -Granulation Quality Red Red -Necrosis Amt Medium (34-66%) Small (1-33%) -Necrotic Tissue Type Adherent Slough Adherent Slough -Structure Exposed N/A N/A -Texture (Dee-wound Skin Appearance) Scarring Scarring -Moisture (Dee-wound Skin Appearance Maceration No Abnormality ) -Color (Dee-wound Skin Appearance) Rubor Hemosiderin Staining Rubor -Temperature (Dee-wound Skin No Abnormality No Abnormality Appearance) (Pt Warm) (Pt Warm) -Tenderness on Palpation (Dee-wound No No Skin Appearance) -Ulcer Cleansing Wound Cleanser Wound Cleanser -Foul Odor after Cleansing No No -Anesthetic Used 4% Lidocaine Solution [Edema Assessment] -Right Calf (cm) 33.5 34 -Right Ankle (cm) 20.5 22 Musculoskeletal: Tenderness - With manipulation of ulcer site Neurological: Sensory exam intact to light touch and pain Psych/Mental Status: Normal Affect, Appropriate Debridement Note Post-Debridement Measurements/Treatment WC - Nurse 2 - General Ulcer CM Notes Start: 11/10/18 09:27 Freq: Status: Active Protocol: Activity Type Activity Date Activity User E-Sign Co-Sign Detail Recorded Client Recorded Date Recorded By Document 11/10/18 10:21 AN [id number] 11/10/18 10:27 AN Document 11/17/18 09:56 DL [id number] 11/17/18 10:03 DL Document 11/24/18 11:26 AN [id number] 11/24/18 11:30 AN 11/10/18 11/17/18 11/24/18 10:21 09:56 11:26 Wound Center Nurse 2 #1 Right Medial Ankle -Time 10:25 09:59 11:28 -Correct Patient Yes Yes Yes -Correct Side, Site, Position Yes Yes Yes -Correct Procedure Yes Yes Yes -Procedure Performed Yes Yes Yes -Type of Procedure Debridement Debridement Debridement -Clinical Debridement Subcutaneous Subcutaneous Subcutaneous -Post Debridement Size (cm) - Length 3.5 3.4 3.3 -Post Debridement Size (cm) - Width 2.7 2.7 2.5 -Post Debridement Size (cm) - Depth 0.3 0.3 0.3 -Total Square Cm 9.45 9.18 8.25 -Wound/Ulcer Outcome Not Healed Not Healed Amputation -Ulcer Cleansing Rinsed/ Rinsed/ Rinsed/ Irrigated with Irrigated with Irrigated with Saline Saline Saline -Foul Odor after Cleansing No No No -Bioengineered Tissue No No -Bleeding Controlled with Pressure Pressure Pressure -Offloading No No No -Treatment Response Procedure Procedure Procedure Tolerated Well Tolerated Well Tolerated Well Pain Scale: 0-10 Numeric Is Patient Pain Free? Yes Yes Yes Wound debrided: Right medial ankle Laterality: Right Type of Debridement: Excisional debridement Anesthesia Used: 4% Lidocaine Solution Depth: in the subcutaneous layer Percentage of wound debrided: 100 Instrument Used: 5mm curette Tissue Removed: Adherent slough, fibrin, hyperkeratotic tissue Severity: Fat Layer Exposed Amount of bleeding with debridement: Mild Bleeding Controlled with: Pressure Patient tolerated procedure well Assessment/Plan Active Problems Ulcer of right lower extremity with fat layer exposed (Acute) Delayed wound healing (Acute) Pain in right lower leg (Acute) Lower extremity edema (Acute) Assessment: Ulcer right medial ankle. Pain right lower extremity. Lower extremity edema. Other comorbidities Plan: Patient was carefully examined and evaluated again today for right medial ankle ulcer. A subcutaneous excisional debridement was performed as noted in the clinical panel. Once complete, the ulcer site was dressed with an Unna boot followed by compression dressing since he did so well with this treatment last week. He had no issues with this. The importance of compression as well as keeping pressure off of his ulcer site was stressed in great detail today. Patient says he understands this. X-rays taken of the area recently at the [place] [facility] showed soft tissue swelling but no signs of osteomyelitis or soft tissue emphysema. LEAS and venous Doppler exams were reviewed which were read by the vascular specialist as showing sufficient blood flow to the lower extremity, however there was incompetence with veins in bilateral lower extremities. Full detailed report is in patient's chart. A diet high in protein was recommended for this patient to help optimize ulcer healing potential. All questions were answered to the patient's satisfaction. He was educated on all signs and symptoms of local and systemic infection and he was instructed to go to the emergency room immediately should he notice any of these. Otherwise, patient will follow back up in clinic in 1 week to check on progress, or sooner if needed.
--- NOTE | 2018-12-01 10:57 | PN.PCM_ITS ---
(1) Ulcer of right lower extremity with fat layer exposed Status: Acute Current Visit: Yes Code(s): L97.912 - Non-pressure chronic ulcer of unspecified part of right lower leg with fat layer exposed (2) Delayed wound healing Status: Acute Current Visit: Yes Code(s): T14.8XXD - Other injury of unspecified body region, subsequent encounter (3) Pain in right lower leg Status: Acute Current Visit: Yes Code(s): M79.661 - Pain in right lower leg (4) Lower extremity edema Status: Acute Current Visit: Yes Code(s): R60.0 - Localized edema (5) PVD (peripheral vascular disease) Status: Suspected Current Visit: Yes Code(s): I73.9 - Peripheral vascular disease, unspecified (6) Venous insufficiency (chronic) (peripheral) Status: Suspected Current Visit: Yes Code(s): I87.2 - Venous insufficiency (chronic) (peripheral) Type of Wound Chief Complaint: right lower extremity ulcer History of Wound: This 62-year-old male was referred to the wound healing center for right medial lower extremity ulcer. Patient says this ulcer has been open for close to a year. He says when he initially noticed it, he was seen at an urgent care facility where he took an antibiotic. He said he never followed up with anyone for the ulcer after that. He says he has been dressing the site on his own with Neosporin and a bandage. He says the ulcer site is not getting any worse, but it is not improving either. He denies any purulence to the area or any other signs of infection. Progress of Wound: Ulcer shows significant improvement this week. Patient has been wearing unna boot for last week. Patient denies any nausea, vomiting, fever, or chills. - Physical Exam Vital Signs Temp Pulse Resp BP 97.5 F L 105 H 18 119/76 12/01/18 10:38 12/01/18 10:38 12/01/18 10:38 12/01/18 10:38 General: Alert, Oriented x3, Cooperative, No apparent distress Extremities: Capillary Refill Less than 3 Seconds - To all distal digits, No Calf Tenderness - Negative Jeny and Bonilla signs bilateral, Diminished Peripheral Pulses, Edema - Bilateral lower extremity edema with right being worse than left Skin: Ulcer/ Wound - Ulcer noted to right medial ankle with fat layer exposed. Measurements are noted below. The base is a mixture of adherent slough, fibrin, granular tissue, and some slight surrounding hyperkeratotic tissue. There is no probing to bone, no tracking, no undermining, no purulence, no malodor, no steve rounding cellulitis, and no increase in warmth, - - Hemosiderin skin deposit changes appreciated close to ulcer site Wound Measurements and Assessment WC - Nurse 1 - General Ulcer Measurement Start: 11/10/18 09:27 Freq: Status: Active Protocol: Activity Type Activity Date Activity User E-Sign Co-Sign Detail Recorded Client Recorded Date Recorded By Document 11/29/18 08:44 AN [id number] 11/29/18 08:58 AN Document 12/01/18 10:38 DL [id number] 12/01/18 10:42 DL 11/29/18 12/01/18 08:44 10:38 Wound Center Nurse 1 [Ulcer Assessment] #1 Right Medial Ankle -Current Size (cm) - Length 2.7 -Current Size (cm) - Width 1.4 -Current Size (cm) - Depth 0.1 -Total Square Cm 3.78 -Photo Taken No No -Exudate Amt Medium Small -Exudate Type Serosanguineous Serosanguineous -Wound Margin Distinct, Distinct, Outline Outline Attached Attached -Granulation Amt Medium (34-66%) Large (67-100%) -Granulation Quality Red Red -Necrosis Amt Medium (34-66%) Small (1-33%) -Necrotic Tissue Type Adherent Slough Adherent Slough -Structure Exposed N/A N/A -Texture (Dee-wound Skin Appearance) Scarring Scarring -Moisture (Dee-wound Skin Appearance Maceration No Abnormality ) -Color (Dee-wound Skin Appearance) Rubor Hemosiderin Staining Rubor -Temperature (Dee-wound Skin No Abnormality No Abnormality Appearance) (Pt Warm) (Pt Warm) -Tenderness on Palpation (Dee-wound No No Skin Appearance) -Ulcer Cleansing Wound Cleanser Wound Cleanser -Foul Odor after Cleansing No No -Anesthetic Used 4% Lidocaine Solution [Edema Assessment] -Right Calf (cm) 33.5 34 -Right Ankle (cm) 20.5 22 Musculoskeletal: Tenderness - With manipulation of ulcer site Neurological: Sensory exam intact to light touch and pain Psych/Mental Status: Normal Affect, Appropriate Debridement Note Post-Debridement Measurements/Treatment WC - Nurse 2 - General Ulcer CM Notes Start: 11/10/18 09:27 Freq: Status: Active Protocol: Activity Type Activity Date Activity User E-Sign Co-Sign Detail Recorded Client Recorded Date Recorded By Document 11/10/18 10:21 AN [id number] 11/10/18 10:27 AN Document 11/17/18 09:56 DL [id number] 11/17/18 10:03 DL Document 11/24/18 11:26 AN [id number] 11/24/18 11:30 AN 11/10/18 11/17/18 11/24/18 10:21 09:56 11:26 Wound Center Nurse 2 #1 Right Medial Ankle -Time 10:25 09:59 11:28 -Correct Patient Yes Yes Yes -Correct Side, Site, Position Yes Yes Yes -Correct Procedure Yes Yes Yes -Procedure Performed Yes Yes Yes -Type of Procedure Debridement Debridement Debridement -Clinical Debridement Subcutaneous Subcutaneous Subcutaneous -Post Debridement Size (cm) - Length 3.5 3.4 3.3 -Post Debridement Size (cm) - Width 2.7 2.7 2.5 -Post Debridement Size (cm) - Depth 0.3 0.3 0.3 -Total Square Cm 9.45 9.18 8.25 -Wound/Ulcer Outcome Not Healed Not Healed Amputation -Ulcer Cleansing Rinsed/ Rinsed/ Rinsed/ Irrigated with Irrigated with Irrigated with Saline Saline Saline -Foul Odor after Cleansing No No No -Bioengineered Tissue No No -Bleeding Controlled with Pressure Pressure Pressure -Offloading No No No -Treatment Response Procedure Procedure Procedure Tolerated Well Tolerated Well Tolerated Well Pain Scale: 0-10 Numeric Is Patient Pain Free? Yes Yes Yes Wound debrided: Right medial ankle Laterality: Right Type of Debridement: Excisional debridement Anesthesia Used: 4% Lidocaine Solution Depth: in the subcutaneous layer Percentage of wound debrided: 100 Instrument Used: 5mm curette Tissue Removed: Adherent slough, fibrin, hyperkeratotic tissue Severity: Fat Layer Exposed Amount of bleeding with debridement: Mild Bleeding Controlled with: Pressure Patient tolerated procedure well Assessment/Plan Active Problems Ulcer of right lower extremity with fat layer exposed (Acute) Delayed wound healing (Acute) Pain in right lower leg (Acute) Lower extremity edema (Acute) Assessment: Ulcer right medial ankle. Pain right lower extremity. Lower extremity edema. Other comorbidities Plan: Patient was carefully examined and evaluated again today for right medial ankle ulcer. A subcutaneous excisional debridement was performed as noted in the clinical panel. Once complete, the ulcer site was dressed with an Unna boot followed by compression dressing since he did so well with this treatment last week. He had no issues with this. The importance of compression as well as keeping pressure off of his ulcer site was stressed in great detail today. Patient says he understands this. X-rays taken of the area recently at the [place] ER showed soft tissue swelling but no signs of osteomyelitis or soft tissue emphysema. LEAS and venous Doppler exams were reviewed which were read by the vascular specialist as showing sufficient blood flow to the lower extremity, however there was incompetence with veins in bilateral lower extremities. Full detailed report is in patient's chart. A diet high in protein was recommended for this patient to help optimize ulcer healing potential. All questions were answered to the patient's satisfaction. He was educated on all signs and symptoms of local and systemic infection and he was instructed to go to the emergency room immediately should he notice any of these. Otherwise, patient will follow back up in clinic in 1 week to check on progress, or sooner if needed.
== END 2018-12-02 23:59 ==
LOC: WC 10:30
PROVIDERS: Family Provider Family Medicine; PCP Family Medicine; Referring Provider Podiatrist; Visit Provider Podiatrist
DX: I73.9 Peripheral vascular disease, unspecified (principal); I87.2 Venous insufficiency (chronic) (peripheral); L97.312 Non-pressure chronic ulcer of right ankle with fat layer exposed; R60.0 Localized edema; Z79.899 Other long term (current) drug therapy; M79.604 Pain in right leg
CPT/HCPCS: 11042; 29580; 93923; 93970; 99203; 99211; G0463

== ENCOUNTER 2018-12-29 10:30 | Outpatient (RCR) | payer OTHER, SELFPAY ==
[2018-12-03 01:18] VITALS: BP 119/76; PULSE 105; RESP 18; TEMP 36.4
[2018-12-05 12:29] VITALS: BP 136/78; PULSE 88; RESP 16; TEMP 37.4; BMI 27.4
[2018-12-08 10:17] VITALS: BP 114/74; PULSE 105; RESP 16; TEMP 36.4; BMI 27.4
--- NOTE | 2018-12-08 12:07 | PN.PCM_ITS ---
(1) Ulcer of right lower extremity with fat layer exposed Status: Acute Current Visit: No Code(s): L97.912 - Non-pressure chronic ulcer of unspecified part of right lower leg with fat layer exposed (2) Delayed wound healing Status: Acute Current Visit: No Code(s): T14.8XXD - Other injury of unspecified body region, subsequent encounter (3) Pain in right lower leg Status: Acute Current Visit: No Code(s): M79.661 - Pain in right lower leg (4) Lower extremity edema Status: Acute Current Visit: No Code(s): R60.0 - Localized edema (5) PVD (peripheral vascular disease) Status: Suspected Current Visit: No Code(s): I73.9 - Peripheral vascular disease, unspecified (6) Venous insufficiency (chronic) (peripheral) Status: Suspected Current Visit: No Code(s): I87.2 - Venous insufficiency (chronic) (peripheral) Type of Wound Chief Complaint: right lower extremity ulcer History of Wound: This 62-year-old male was referred to the wound healing center for right medial lower extremity ulcer. Patient says this ulcer has been open for close to a year. He says when he initially noticed it, he was seen at an urgent care facility where he took an antibiotic. He said he never followed up with anyone for the ulcer after that. He says he has been dressing the site on his own with Neosporin and a bandage. He says the ulcer site is not getting any worse, but it is not improving either. He denies any purulence to the area or any other signs of infection. Progress of Wound: Ulcer shows improvement again this week. Patient has been wearing unna boot for last week. Patient denies any nausea, vomiting, fever, or chills. - Physical Exam Vital Signs Temp Pulse Resp BP 97.5 F L 105 H 16 114/74 12/08/18 10:17 12/08/18 10:17 12/08/18 10:12/08/18 10:17 General: Alert, Oriented x3, Cooperative, No apparent distress Extremities: Capillary Refill Less than 3 Seconds - To all distal digits, No Calf Tenderness - Negative Jeny and Bonilla signs bilateral, Diminished Peripheral Pulses, Edema - Bilateral lower extremity edema with right being worse than left Skin: Ulcer/ Wound - Ulcer noted to right medial ankle with fat layer exposed. Measurements are noted below. The base is a mixture of adherent slough, fibrin, granular tissue, and some slight surrounding hyperkeratotic tissue. There is no probing to bone, no tracking, no undermining, no purulence, no malodor, no surrounding cellulitis, and no increase in warmth, - - Hemosiderin skin deposit changes appreciated close to ulcer site Wound Measurements and Assessment WC - Nurse 1 - General Ulcer Measurement Start: 12/05/18 12:29 Freq: Status: Active Protocol: Activity Type Activity Date Activity User E-Sign Co-Sign Detail Recorded Client Recorded Date Recorded By Document 12/05/18 12:29 BM [id number] 12/05/18 12:30 BMF Document 12/08/18 10:17 [facility] [id number] 12/08/18 10:25 BMF 12/05/18 12/08/18 12:29 10:17 [Ulcer Assessment] #1 Right Medial Ankle -Combined with other wound No -Current Size (cm) - Length 1.4 -Current Size (cm) - Width 1.4 -Current Size (cm) - Depth 0.2 -Total Square Cm 1.96 -Photo Taken No -Epithelialization None Present -Tunneling No -Undermining/Tunneling No -Circular Undermining No -Exudate Amt Medium -Exudate Type Serosanguineous -Wound Margin Distinct, Outline Attached -Granulation Amt Medium (34-66%) -Granulation Quality Red -Slough/Fibrin Yes -Necrosis Amt Small (1-33%) -Necrotic Tissue Type Adherent Slough -Texture (Dee-wound Skin Appearance) Assessed Scarring -Moisture (Dee-wound Skin Appearance Assessed ) Dry/Scaly -Color (Dee-wound Skin Appearance) Assessed Hemosiderin Staining -Temperature (Dee-wound Skin No Abnormality Appearance) (Pt Warm) -Tenderness on Palpation (Dee-wound No Skin Appearance) -Ulcer Cleansing Wound Cleanser -Foul Odor after Cleansing No -Anesthetic Used 5% Lidocaine Gel Wound Center Nurse 1 [Edema Assessment] -Lower Limb Edema Present No No -Right Calf (cm) 35.7 36 -Right Ankle (cm) 22.1 22.3 WC - Nurse 2 - General Ulcer CM Notes Start: 12/05/18 12:29 Freq: Status: Active Protocol: Activity Type Activity Date Activity User E-Sign Co-Sign Detail Recorded Client Recorded Date Recorded By Document 12/08/18 10:47 AN [id number] 12/08/18 10:48 AN 12/08/18 10:47 Wound Center Nurse 2 [Procedure/Treatment] #1 Right Medial Ankle -Time 10:48 -Correct Patient Yes -Correct Side, Site, Position Yes -Correct Procedure Yes -Procedure Performed Yes -Type of Procedure Debridement -Clinical Debridement Subcutaneous -Post Debridement Size (cm) - Length 2.2 -Post Debridement Size (cm) - Width 1.7 -Post Debridement Size (cm) - Depth 0.2 -Total Square Cm 3.74 -Wound/Ulcer Outcome Not Healed -Ulcer Cleansing Rinsed/ Irrigated with Saline -Bleeding Controlled with Pressure -Treatment Response Procedure Tolerated Well [See Physician Procedure note for Specifics] Pain Scale: 0-10 Numeric [Pain] -Is Patient Pain Free? Yes Musculoskeletal: Tenderness - With manipulation of ulcer site Neurological: Sensory exam intact to light touch and pain Psych/Mental Status: Normal Affect, Appropriate Debridement Note Post-Debridement Measurements/Treatment WC - Nurse 2 - General Ulcer CM Notes Start: 12/05/18 12:29 Freq: Status: Active Protocol: Activity Type Activity Date Activity User E-Sign Co-Sign Detail Recorded Client Recorded Date Recorded By Document 12/08/18 10:47 AN [id number] 12/08/18 10:48 AN 12/08/18 10:47 Wound Center Nurse 2 #1 Right Medial Ankle -Time 10:48 -Correct Patient Yes -Correct Side, Site, Position Yes -Correct Procedure Yes -Procedure Performed Yes -Type of Procedure Debridement -Clinical Debridement Subcutaneous -Post Debridement Size (cm) - Length 2.2 -Post Debridement Size (cm) - Width 1.7 -Post Debridement Size (cm) - Depth 0.2 -Total Square Cm 3.74 -Wound/Ulcer Outcome Not Healed -Ulcer Cleansing Rinsed/ Irrigated with Saline -Bleeding Controlled with Pressure -Treatment Response Procedure Tolerated Well Pain Scale: 0-10 Numeric Is Patient Pain Free? Yes Wound debrided: Right medial ankle Laterality: Right Type of Debridement: Excisional debridement Anesthesia Used: 4% Lidocaine Solution Depth: in the subcutaneous layer Percentage of wound debrided: 100 Instrument Used: 5mm curette Tissue Removed: Adherent slough, fibrin, hyperkeratotic tissue Severity: Fat Layer Exposed Amount of bleeding with debridement: Mild Bleeding Controlled with: Pressure Patient tolerated procedure well Assessment/Plan Assessment: Ulcer right medial ankle. Pain right lower extremity. Lower extremity edema. Other comorbidities Plan: Patient was carefully examined and evaluated again today for right medial ankle ulcer. Improvement noted again this week. A subcutaneous excisional debridement was performed as noted in the clinical panel. Once complete, the ulcer site was dressed with an Unna boot followed by compression dressing since he did so well with this treatment last week. He had no issues with this. The importance of compression as well as keeping pressure off of his ulcer site was stressed in great detail today. Patient says he understands this. X-rays taken of the area recently at the [place] ER showed soft tissue swelling but no signs of osteomyelitis or soft tissue emphysema. LEAS and venous Doppler exams were reviewed which were read by the vascular specialist as showing sufficient blood flow to the lower extremity, however there was incompetence with veins in bilateral lower extremities. Full detailed report is in patient's chart. A diet high in protein was recommended for this patient to help optimize ulcer healing potential. All questions were answered to the patient's satisfaction. He was educated on all signs and symptoms of local and systemic infection and he was instructed to go to the emergency room immediately should he notice any of these. Otherwise, patient will follow back up in clinic in 1 week to check on progress, or sooner if needed.
[2018-12-15 10:33] VITALS: BP 112/75; PULSE 102; RESP 14; TEMP 36.6; BMI 27.4
--- NOTE | 2018-12-15 10:49 | PCM.WC.PN ---
(1) Ulcer of right lower extremity with fat layer exposed Status: Acute Current Visit: No Code(s): L97.912 - Non-pressure chronic ulcer of unspecified part of right lower leg with fat layer exposed (2) Delayed wound healing Status: Acute Current Visit: No Code(s): T14.8XXD - Other injury of unspecified body region, subsequent encounter (3) Pain in right lower leg Status: Acute Current Visit: No Code(s): M79.661 - Pain in right lower leg (4) Lower extremity edema Status: Acute Current Visit: No Code(s): R60.0 - Localized edema (5) PVD (peripheral vascular disease) Status: Suspected Current Visit: No Code(s): I73.9 - Peripheral vascular disease, unspecified (6) Venous insufficiency (chronic) (peripheral) Status: Suspected Current Visit: No Code(s): I87.2 - Venous insufficiency (chronic) (peripheral) Type of Wound Chief Complaint: right lower extremity ulcer History of Wound: This 62-year-old male was referred to the wound healing center for right medial lower extremity ulcer. Patient says this ulcer has been open for close to a year. He says when he initially noticed it, he was seen at an urgent care facility where he took an antibiotic. He said he never followed up with anyone for the ulcer after that. He says he has been dressing the site on his own with Neosporin and a bandage. He says the ulcer site is not getting any worse, but it is not improving either. He denies any purulence to the area or any other signs of infection. Progress of Wound: Ulcer continues to improve. Patient has been wearing unna boot for last week. Patient denies any nausea, vomiting, fever, or chills. - Physical Exam Vital Signs Temp Pulse Resp BP 98 F 102 H 14 112/75 12/15/18 10:33 12/15/18 10:33 12/15/18 10:33 12/15/18 10:33 General: Alert, Oriented x3, Cooperative, No apparent distress Extremities: Capillary Refill Less than 3 Seconds, No Calf Tenderness - Negative Jeny and Bonilla signs bilateral, Diminished Peripheral Pulses, Edema - Lateral lower extremity edema with right being worse than left Skin: Ulcer/ Wound - Ulcer noted to right medial ankle with fat layer exposed. Measurements are noted below. The base is a mixture of adherent slough, fibrin, granular tissue, and some slight surrounding hyperkeratotic tissue. There is no probing to bone, no tracking, no undermining, no purulence, no malodor, no surrounding cellulitis, and no increase in warmth, - - Hemosiderin skin deposit changes appreciated close to ulcer site Wound Measurements and Assessment WC - Nurse 1 - General Ulcer Measurement Start: 12/05/18 12:29 Freq: Status: Active Protocol: Activity Type Activity Date Activity User E-Sign Co-Sign Detail Recorded Client Recorded Date Recorded By Document 12/15/18 10:33 MT [id number] 12/15/18 10:34 MT 12/15/18 10:33 Wound Center Nurse 1 [Ulcer Assessment] #1 Right Medial Ankle -Current Size (cm) - Length 0.1 -Current Size (cm) - Width 0.1 -Current Size (cm) - Depth 0.1 -Total Square Cm 0.01 [Edema Assessment] -Right Calf (cm) 36 -Right Ankle (cm) 22 WC - Nurse 2 - General Ulcer CM Notes Start: 12/05/18 12:29 Freq: Status: Active Protocol: Activity Type Activity Date Activity User E-Sign Co-Sign Detail Recorded Client Recorded Date Recorded By Document 12/15/18 10:46 AN [id number] 12/15/18 10:48 AN 12/15/18 10:46 Wound Center Nurse 2 [Procedure/Treatment] #1 Right Medial Ankle -Time 10:47 -Correct Patient Yes -Correct Side, Site, Position Yes -Correct Procedure Yes -Procedure Performed Yes -Type of Procedure Debridement -Clinical Debridement Subcutaneous -Post Debridement Size (cm) - Length 1.7 -Post Debridement Size (cm) - Width 1.7 -Post Debridement Size (cm) - Depth 0.1 -Total Square Cm 2.89 -Wound/Ulcer Outcome Not Healed -Ulcer Cleansing Rinsed/ Irrigated with Saline -Bleeding Controlled with Pressure -Treatment Response Procedure Tolerated Well [See Physician Procedure note for Specifics] Pain Scale: 0-10 Numeric [Pain] -Is Patient Pain Free? Yes Musculoskeletal: Tenderness - With manipulation of ulcer site Neurological: Sensory exam intact to light touch and pain Psych/Mental Status: Normal Affect, Appropriate Debridement Note Post-Debridement Measurements/Treatment WC - Nurse 2 - General Ulcer CM Notes Start: 12/05/18 12:29 Freq: Status: Active Protocol: Activity Type Activity Date Activity User E-Sign Co-Sign Detail Recorded Client Recorded Date Recorded By Document 12/08/18 10:47 AN [id number] 12/08/18 10:48 AN Document 12/15/18 10:46 AN [id number] 12/15/18 10:48 AN 12/08/18 12/15/18 10:47 10:46 Wound Center Nurse 2 #1 Right Medial Ankle -Time 10:48 10:47 -Correct Patient Yes Yes -Correct Side, Site, Position Yes Yes -Correct Procedure Yes Yes -Procedure Performed Yes Yes -Type of Procedure Debridement Debridement -Clinical Debridement Subcutaneous Subcutaneous -Post Debridement Size (cm) - Length 2.2 1.7 -Post Debridement Size (cm) - Width 1.7 1.7 -Post Debridement Size (cm) - Depth 0.2 0.1 -Total Square Cm 3.74 2.89 -Wound/Ulcer Outcome Not Healed Not Healed -Ulcer Cleansing Rinsed/ Rinsed/ Irrigated with Irrigated with Saline Saline -Bleeding Controlled with Pressure Pressure -Treatment Response Procedure Procedure Tolerated Well Tolerated Well Pain Scale: 0-10 Numeric Is Patient Pain Free? Yes Yes Wound debrided: Right medial ankle Laterality: Right Type of Debridement: Excisional debridement Anesthesia Used: 4% Lidocaine Solution Depth: in the subcutaneous layer Percentage of wound debrided: 100 Instrument Used: 3mm curette Tissue Removed: Adherent slough, fibrin, hyperkeratotic tissue Severity: Fat Layer Exposed Amount of bleeding with debridement: Mild Bleeding Controlled with: Pressure Patient tolerated procedure well Assessment/Plan Assessment: Ulcer right medial ankle. Pain right lower extremity. Lower extremity edema. Other comorbidities Plan: Patient was carefully examined and evaluated again today for right medial ankle ulcer. Patient continues to show improvement to ulcer site. A subcutaneous excisional debridement was performed as noted in the clinical panel. Once complete, the ulcer site was dressed with an Unna boot followed by compression dressing. He hsa had no issues with this. The importance of compression as well as keeping pressure off of his ulcer site was stressed in great detail today. Patient says he understands this. X-rays taken of the area recently at the [facility] showed soft tissue swelling but no signs of osteomyelitis or soft tissue emphysema. LEAS and venous Doppler exams were reviewed which were read by the vascular specialist as showing sufficient blood flow to the lower extremity, however there was incompetence with veins in bilateral lower extremities. Full detailed report is in patient's chart. A diet high in protein was recommended for this patient to help optimize ulcer healing potential. All questions were answered to the patient's satisfaction. He was educated on all signs and symptoms of local and systemic infection and he was instructed to go to the emergency room immediately should he notice any of these. Otherwise, patient will follow back up in clinic in 1 week to check on progress, or sooner if needed.
--- NOTE | 2018-12-15 10:52 | PN.PCM_ITS ---
(1) Ulcer of right lower extremity with fat layer exposed Status: Acute Current Visit: No Code(s): L97.912 - Non-pressure chronic ulcer of unspecified part of right lower leg with fat layer exposed (2) Delayed wound healing Status: Acute Current Visit: No Code(s): T14.8XXD - Other injury of unspecified body region, subsequent encounter (3) Pain in right lower leg Status: Acute Current Visit: No Code(s): M79.661 - Pain in right lower leg (4) Lower extremity edema Status: Acute Current Visit: No Code(s): R60.0 - Localized edema (5) PVD (peripheral vascular disease) Status: Suspected Current Visit: No Code(s): I73.9 - Peripheral vascular disease, unspecified (6) Venous insufficiency (chronic) (peripheral) Status: Suspected Current Visit: No Code(s): I87.2 - Venous insufficiency (chronic) (peripheral) Type of Wound Chief Complaint: right lower extremity ulcer History of Wound: This 62-year-old male was referred to the wound healing center for right medial lower extremity ulcer. Patient says this ulcer has been open for close to a year. He says when he initially noticed it, he was seen at an urgent care facility where he took an antibiotic. He said he never followed up with anyone for the ulcer after that. He says he has been dressing the site on his own with Neosporin and a bandage. He says the ulcer site is not getting any worse, but it is not improving either. He denies any purulence to the area or any other signs of infection. Progress of Wound: Ulcer continues to improve. Patient has been wearing unna boot for last week. Patient denies any nausea, vomiting, fever, or chills. - Physical Exam Vital Signs Temp Pulse Resp BP 98 F 102 H 14 112/75 12/15/18 10:33 12/15/18 10:33 12/15/18 10:33 12/15/18 10:33 General: Alert, Oriented x3, Cooperative, No apparent distress Extremities: Capillary Refill Less than 3 Seconds, No Calf Tenderness - Negative Jeny and Bonilla signs bilateral, Diminished Peripheral Pulses, Edema - Lateral lower extremity edema with right being worse than left Skin: Ulcer/ Wound - Ulcer noted to right medial ankle with fat layer exposed. Measurements are noted below. The base is a mixture of adherent slough, fibrin, granular tissue, and some slight surrounding hyperkeratotic tissue. There is no probing to bone, no tracking, no undermining, no purulence, no malodor, no surrounding cellulitis, and no increase in warmth, - - Hemosiderin skin deposit changes appreciated close to ulcer site Wound Measurements and Assessment WC - Nurse 1 - General Ulcer Measurement Start: 12/05/18 12:29 Freq: Status: Active Protocol: Activity Type Activity Date Activity User E-Sign Co-Sign Detail Recorded Client Recorded Date Recorded By Document 12/15/18 10:33 MT [id number] 12/15/18 10:34 MT 12/15/18 10:33 Wound Center Nurse 1 [Ulcer Assessment] #1 Right Medial Ankle -Current Size (cm) - Length 0.1 -Current Size (cm) - Width 0.1 -Current Size (cm) - Depth 0.1 -Total Square Cm 0.01 [Edema Assessment] -Right Calf (cm) 36 -Right Ankle (cm) 22 WC - Nurse 2 - General Ulcer CM Notes Start: 12/05/18 12:29 Freq: Status: Active Protocol: Activity Type Activity Date Activity User E-Sign Co-Sign Detail Recorded Client Recorded Date Recorded By Document 12/15/18 10:46 AN [id number] 12/15/18 10:48 AN 12/15/18 10:46 Wound Center Nurse 2 [Procedure/Treatment] #1 Right Medial Ankle -Time 10:47 -Correct Patient Yes -Correct Side, Site, Position Yes -Correct Procedure Yes -Procedure Performed Yes -Type of Procedure Debridement -Clinical Debridement Subcutaneous -Post Debridement Size (cm) - Length 1.7 -Post Debridement Size (cm) - Width 1.7 -Post Debridement Size (cm) - Depth 0.1 -Total Square Cm 2.89 -Wound/Ulcer Outcome Not Healed -Ulcer Cleansing Rinsed/ Irrigated with Saline -Bleeding Controlled with Pressure -Treatment Response Procedure Tolerated Well [See Physician Procedure note for Specifics] Pain Scale: 0-10 Numeric [Pain] -Is Patient Pain Free? Yes Musculoskeletal: Tenderness - With manipulation of ulcer site Neurological: Sensory exam intact to light touch and pain Psych/Mental Status: Normal Affect, Appropriate Debridement Note Post-Debridement Measurements/Treatment WC - Nurse 2 - General Ulcer CM Notes Start: 12/05/18 12:29 Freq: Status: Active Protocol: Activity Type Activity Date Activity User E-Sign Co-Sign Detail Recorded Client Recorded Date Recorded By Document 12/08/18 10:47 AN [id number] 12/08/18 10:48 AN Document 12/15/18 10:46 AN [id number] 12/15/18 10:48 AN 12/08/18 12/15/18 10:47 10:46 Wound Center Nurse 2 #1 Right Medial Ankle -Time 10:48 10:47 -Correct Patient Yes Yes -Correct Side, Site, Position Yes Yes -Correct Procedure Yes Yes -Procedure Performed Yes Yes -Type of Procedure Debridement Debridement -Clinical Debridement Subcutaneous Subcutaneous -Post Debridement Size (cm) - Length 2.2 1.7 -Post Debridement Size (cm) - Width 1.7 1.7 -Post Debridement Size (cm) - Depth 0.2 0.1 -Total Square Cm 3.74 2.89 -Wound/Ulcer Outcome Not Healed Not Healed -Ulcer Cleansing Rinsed/ Rinsed/ Irrigated with Irrigated with Saline Saline -Bleeding Controlled with Pressure Pressure -Treatment Response Procedure Procedure Tolerated Well Tolerated Well Pain Scale: 0-10 Numeric Is Patient Pain Free? Yes Yes Wound debrided: Right medial ankle Laterality: Right Type of Debridement: Excisional debridement Anesthesia Used: 4% Lidocaine Solution Depth: in the subcutaneous layer Percentage of wound debrided: 100 Instrument Used: 3mm curette Tissue Removed: Adherent slough, fibrin, hyperkeratotic tissue Severity: Fat Layer Exposed Amount of bleeding with debridement: Mild Bleeding Controlled with: Pressure Patient tolerated procedure well Assessment/Plan Assessment: Ulcer right medial ankle. Pain right lower extremity. Lower extremity edema. Other comorbidities Plan: Patient was carefully examined and evaluated again today for right medial ankle ulcer. Patient continues to show improvement to ulcer site. A subcutaneous excisional debridement was performed as noted in the clinical panel. Once complete, the ulcer site was dressed with an Unna boot followed by compression dressing. He hsa had no issues with this. The importance of compression as well as keeping pressure off of his ulcer site was stressed in g reat detail today. Patient says he understands this. X-rays taken of the area recently at the [place] [facility] showed soft tissue swelling but no signs of osteomyelitis or soft tissue emphysema. LEAS and venous Doppler exams were reviewed which were read by the vascular specialist as showing sufficient blood flow to the lower extremity, however there was incompetence with veins in bilateral lower extremities. Full detailed report is in patient's chart. A diet high in protein was recommended for this patient to help optimize ulcer healing potential. All questions were answered to the patient's satisfaction. He was educated on all signs and symptoms of local and systemic infection and he was instructed to go to the emergency room immediately should he notice any of these. Otherwise, patient will follow back up in clinic in 1 week to check on progress, or sooner if needed.
[2018-12-22 10:28] VITALS: BP 121/69; PULSE 95; RESP 18; TEMP 36.7; BMI 27.4
--- NOTE | 2018-12-22 11:49 | PCM.WC.PN ---
(1) Ulcer of right lower extremity with fat layer exposed Status: Acute Current Visit: No Code(s): L97.912 - Non-pressure chronic ulcer of unspecified part of right lower leg with fat layer exposed (2) Delayed wound healing Status: Acute Current Visit: No Code(s): T14.8XXD - Other injury of unspecified body region, subsequent encounter (3) Pain in right lower leg Status: Acute Current Visit: No Code(s): M79.661 - Pain in right lower leg (4) Lower extremity edema Status: Acute Current Visit: No Code(s): R60.0 - Localized edema (5) PVD (peripheral vascular disease) Status: Suspected Current Visit: No Code(s): I73.9 - Peripheral vascular disease, unspecified (6) Venous insufficiency (chronic) (peripheral) Status: Suspected Current Visit: No Code(s): I87.2 - Venous insufficiency (chronic) (peripheral) Type of Wound Date of Service: 12/22/18 Chief Complaint: right lower extremity ulcer History of Wound: This 62-year-old male was referred to the wound healing center for right medial lower extremity ulcer. Patient says this ulcer has been open for close to a year. He says when he initially noticed it, he was seen at an urgent care facility where he took an antibiotic. He said he never followed up with anyone for the ulcer after that. He says he has been dressing the site on his own with Neosporin and a bandage. He says the ulcer site is not getting any worse, but it is not improving either. He denies any purulence to the area or any other signs of infection. Progress of Wound: Ulcer continues to improve. Patient has been wearing unna boot for last week again. Patient denies any nausea, vomiting, fever, or chills. - Physical Exam Vital Signs Temp Pulse Resp BP 98.0 F 95 18 121/69 H 12/22/18 10:28 12/22/18 10:28 12/22/18 10:28 12/22/18 10:28 General: Alert, Oriented x3, Cooperative, No apparent distress Extremities: Capillary Refill Less than 3 Seconds, No Calf Tenderness - Negative Jeny and Bonilla signs bilateral, Diminished Peripheral Pulses, Edema - Bilateral lower extremity edema with right being worse than left Skin: Ulcer/ Wound - Ulcer noted to right medial ankle with fat layer exposed. Measurements are noted below. The base is a mixture of adherent slough, fibrin, granular tissue, and some slight surrounding hyperkeratotic tissue. There is no probing to bone, no tracking, no undermining, no purulence, no malodor, no surrounding cellulitis, and no increase in warmth, - - Hemosiderin skin deposit changes appreciated close to ulcer site Wound Measurements and Assessment WC - Nurse 1 - General Ulcer Measurement Start: 12/05/18 12:29 Freq: Status: Active Protocol: Activity Type Activity Date Activity User E-Sign Co-Sign Detail Recorded Client Recorded Date Recorded By Document 12/22/18 10:28 HI [id number] 12/22/18 10:30 HI 12/22/18 10:28 Wound Center Nurse 1 [Ulcer Assessment] #1 Right Medial Ankle -Current Size (cm) - Length 0.9 -Current Size (cm) - Width 1.8 -Current Size (cm) - Depth 0.1 -Total Square Cm 1.62 -Exudate Amt Small -Exudate Type Serosanguineous -Wound Margin Thickened -Texture (Dee-wound Skin Appearance) Assessed -Moisture (Dee-wound Skin Appearance Assessed ) -Color (Dee-wound Skin Appearance) Assessed, Hemosiderin Staining -Temperature (Dee-wound Skin No Abnormality Appearance) (Pt Warm) -Tenderness on Palpation (Dee-wound No Skin Appearance) -Ulcer Cleansing Wound Cleanser -Foul Odor after Cleansing No -Anesthetic Used 5% Lidocaine Gel [Edema Assessment] -Right Calf (cm) 36 -Right Ankle (cm) 24 WC - Nurse 2 - General Ulcer CM Notes Start: 12/05/18 12:29 Freq: Status: Active Protocol: Activity Type Activity Date Activity User E-Sign Co-Sign Detail Recorded Client Recorded Date Recorded By Document 12/22/18 10:30 AN [id number] 12/22/18 10:32 AN 12/22/18 10:30 Wound Center Nurse 2 [Procedure/Treatment] #1 Right Medial Ankle -Time 10:30 -Correct Patient Yes -Correct Side, Site, Position Yes -Correct Procedure Yes -Procedure Performed Yes -Type of Procedure Debridement -Clinical Debridement Subcutaneous -Post Debridement Size (cm) - Length 1.1 -Post Debridement Size (cm) - Width 1.7 -Post Debridement Size (cm) - Depth 0.1 -Total Square Cm 1.87 -Wound/Ulcer Outcome Not Healed -Bleeding Controlled with Pressure -Offloading Yes -Type of Offloading Surgical Shoe -Treatment Response Procedure Tolerated Well [See Physician Procedure note for Specifics] Pain Scale: 0-10 Numeric [Pain] -Is Patient Pain Free? Yes Musculoskeletal: Tenderness - With manipulation of ulcer site Neurological: Sensory exam intact to light touch and pain Psych/Mental Status: Normal Affect, Appropriate Debridement Note Post-Debridement Measurements/Treatment WC - Nurse 2 - General Ulcer CM Notes Start: 12/05/18 12:29 Freq: Status: Active Protocol: Activity Type Activity Date Activity User E-Sign Co-Sign Detail Recorded Client Recorded Date Recorded By Document 12/08/18 10:47 AN [id number] 12/08/18 10:48 AN Document 12/15/18 10:46 AN [id number] 12/15/18 10:48 AN Document 12/22/18 10:30 AN [id number] 12/22/18 10:32 AN 12/08/18 12/15/18 12/22/18 10:47 10:46 10:30 Wound Center Nurse 2 #1 Right Medial Ankle -Time 10:48 10:47 10:30 -Correct Patient Yes Yes Yes -Correct Side, Site, Position Yes Yes Yes -Correct Procedure Yes Yes Yes -Procedure Performed Yes Yes Yes -Type of Procedure Debridement Debridement Debridement -Clinical Debridement Subcutaneous Subcutaneous Subcutaneous -Post Debridement Size (cm) - Length 2.2 1.7 1.1 -Post Debridement Size (cm) - Width 1.7 1.7 1.7 -Post Debridement Size (cm) - Depth 0.2 0.1 0.1 -Total Square Cm 3.74 2.89 1.87 -Wound/Ulcer Outcome Not Healed Not Healed Not Healed -Ulcer Cleansing Rinsed/ Rinsed/ Irrigated with Irrigated with Saline Saline -Bleeding Controlled with Pressure Pressure Pressure -Offloading Yes -Type of Offloading Surgical Shoe -Treatment Response Procedure Procedure Procedure Tolerated Well Tolerated Well Tolerated Well Pain Scale: 0-10 Numeric Is Patient Pain Free? Yes Yes Yes Wound debrided: Right medial ankle Laterality: Right Type of Debridement: Excisional debridement Anesthesia Used: 4% Lidocaine Solution Depth: in the subcutaneous layer Percentage of wound debrided: 100 Instrument Used: 5mm curette Tissue Removed: Adherent slough, fibrin, hyperkeratotic tissue Severity: Fat Layer Exposed Amount of bleeding with debridement: Mild Bleeding Controlled with: Pressure Patient tolerated procedure well Assessment/Plan Assessment: Ulcer right medial ankle. Pain right lower extremity. Lower extremity edema. Other comorbidities Plan: Patient was carefully examined and evaluated again today for right medial ankle ulcer. Continued improvement to ulcer site noted again this week. A subcutaneous excisional debridement was performed as noted in the clinical panel. Once complete, the ulcer site was dressed with an Unna boot followed by compression dressing. He has tolerated these well. The importance of compression as well as keeping pressure off of his ulcer site was stressed in great detail today. Patient says he understands this. X-rays taken of the area recently at the [facility] showed soft tissue swelling but no signs of osteomyelitis or soft tissue emphysema. LEAS and venous Doppler exams were reviewed which were read by the vascular specialist as showing sufficient blood flow to the lower extremity, however there was incompetence with veins in bilateral lower extremities. Full detailed report is in patient's chart. A diet high in protein was recommended for this patient to help optimize ulcer healing potential. All questions were answered to the patient's satisfaction. He was educated on all signs and symptoms of local and systemic infection and he was instructed to go to the emergency room immediately should he notice any of these. Otherwise, patient will follow back up in clinic in 1 week to check on progress, or sooner if needed.
[2018-12-29 10:41] VITALS: BP 112/61; PULSE 108; RESP 18; TEMP 36.9; BMI 27.4
--- NOTE | 2018-12-29 11:11 | PCM.WC.PN ---
(1) Ulcer of right lower extremity with fat layer exposed Status: Acute Current Visit: No Code(s): L97.912 - Non-pressure chronic ulcer of unspecified part of right lower leg with fat layer exposed (2) Delayed wound healing Status: Acute Current Visit: No Code(s): T14.8XXD - Other injury of unspecified body region, subsequent encounter (3) Pain in right lower leg Status: Acute Current Visit: No Code(s): M79.661 - Pain in right lower leg (4) Lower extremity edema Status: Acute Current Visit: No Code(s): R60.0 - Localized edema (5) PVD (peripheral vascular disease) Status: Suspected Current Visit: No Code(s): I73.9 - Peripheral vascular disease, unspecified (6) Venous insufficiency (chronic) (peripheral) Status: Suspected Current Visit: No Code(s): I87.2 - Venous insufficiency (chronic) (peripheral) Type of Wound Date of Service: 12/29/18 Chief Complaint: right lower extremity ulcer History of Wound: This 62-year-old male was referred to the wound healing center for right medial lower extremity ulcer. Patient says this ulcer has been open for close to a year. He says when he initially noticed it, he was seen at an urgent care facility where he took an antibiotic. He said he never followed up with anyone for the ulcer after that. He says he has been dressing the site on his own with Neosporin and a bandage. He says the ulcer site is not getting any worse, but it is not improving either. He denies any purulence to the area or any other signs of infection. Progress of Wound: Ulcer shows improvement again this week. Patient's sister here today. Patient denies any nausea, vomiting, fever, or chills. - Physical Exam Vital Signs Temp Pulse Resp BP 98.4 F 108 H 18 112/61 12/29/18 10:41 12/29/18 10:41 12/29/18 10:41 12/29/18 10:41 General: Alert, Oriented x3, Cooperative, No apparent distress Extremities: Capillary Refill Less than 3 Seconds, No Calf Tenderness - Negative Jeny and Bonilla signs bilateral, Diminished Peripheral Pulses, Edema - Bilateral lower extremity edema with right being worse than left Skin: Ulcer/ Wound - Ulcer noted to right medial ankle with fat layer exposed. Measurements are noted below. The base is a mixture of adherent slough, fibrin, granular tissue, and some slight surrounding hyperkeratotic tissue. There is no probing to bone, no tracking, no undermining, no purulence, no malodor, no surrounding cellulitis, and no increase in warmth, or any other signs of local infection noted., - - Hemosiderin skin deposit changes appreciated close to ulcer site Wound Measurements and Assessment WC - Nurse 1 - General Ulcer Measurement Start: 12/05/18 12:29 Freq: Status: Active Protocol: Activity Type Activity Date Activity User E-Sign Co-Sign Detail Recorded Client Recorded Date Recorded By Document 12/29/18 10:41 MS [id number] 12/29/18 10:43 MS 12/29/18 10:41 Wound Center Nurse 1 [Ulcer Assessment] #1 Right Medial Ankle -Current Size (cm) - Length 0.1 -Current Size (cm) - Width 0.1 -Current Size (cm) - Depth 0.1 -Total Square Cm 0.01 -Temperature (Dee-wound Skin No Abnormality Appearance) (Pt Warm) -Tenderness on Palpation (Dee-wound No Skin Appearance) -Ulcer Cleansing Wound Cleanser -Foul Odor after Cleansing No -Anesthetic Used 5% Lidocaine Gel [Edema Assessment] -Right Calf (cm) 36 -Right Ankle (cm) 24 - Nurse 2 - General Ulcer CM Notes Start: 12/05/18 12:29 Freq: Status: Active Protocol: Activity Type Activity Date Activity User E-Sign Co-Sign Detail Recorded Client Recorded Date Recorded By Document 12/29/18 10:48 [id number] 12/29/18 10:52 AN 12/29/18 10:48 Wound Center Nurse 2 [Procedure/Treatment] #1 Right Medial Ankle -Time 10:51 -Correct Patient Yes -Correct Side, Site, Position Yes -Correct Procedure Yes -Procedure Performed Yes -Type of Procedure Debridement -Clinical Debridement Subcutaneous -Post Debridement Size (cm) - Length 0.9 -Post Debridement Size (cm) - Width 1.2 -Post Debridement Size (cm) - Depth 0.1 -Total Square Cm 1.08 -Wound/Ulcer Outcome Not Healed -Ulcer Cleansing Rinsed/ Irrigated with Saline -Foul Odor after Cleansing No -Bioengineered Tissue No -Bleeding Controlled with Pressure -Offloading No -Treatment Response Procedure Tolerated Well [See Physician Procedure note for Specifics] Pain Scale: 0-10 Numeric [Pain] -Is Patient Pain Free? Yes Musculoskeletal: Tenderness - With manipulation of ulcer site Neurological: Sensory exam intact to light touch and pain Psych/Mental Status: Normal Affect, Appropriate Debridement Note Post-Debridement Measurements/Treatment WC - Nurse 2 - General Ulcer CM Notes Start: 12/05/18 12:29 Freq: Status: Active Protocol: Activity Type Activity Date Activity User E-Sign Co-Sign Detail Recorded Client Recorded Date Recorded By Document 12/08/18 10:47 AN [id number] 12/08/18 10:48 AN Document 12/15/18 10:46 AN [id number] 12/15/18 10:48 AN Document 12/22/18 10:30 AN [id number] 12/22/18 10:32 AN Document 12/29/18 10:48 AN [id number] 12/29/18 10:52 AN 12/08/18 12/15/18 12/22/18 10:47 10:46 10:30 Wound Center Nurse 2 #1 Right Medial Ankle -Time 10:48 10:47 10:30 -Correct Patient Yes Yes Yes -Correct Side, Site, Position Yes Yes Yes -Correct Procedure Yes Yes Yes -Procedure Performed Yes Yes Yes -Type of Procedure Debridement Debridement Debridement -Clinical Debridement Subcutaneous Subcutaneous Subcutaneous -Post Debridement Size (cm) - Length 2.2 1.7 1.1 -Post Debridement Size (cm) - Width 1.7 1.7 1.7 -Post Debridement Size (cm) - Depth 0.2 0.1 0.1 -Total Square Cm 3.74 2.89 1.87 -Wound/Ulcer Outcome Not Healed Not Healed Not Healed -Ulcer Cleansing Rinsed/ Rinsed/ Irrigated with Irrigated with Saline Saline -Foul Odor after Cleansing -Bioengineered Tissue -Bleeding Controlled with Pressure Pressure Pressure -Offloading Yes -Type of Offloading Surgical Shoe -Treatment Response Procedure Procedure Procedure Tolerated Well Tolerated Well Tolerated Well Pain Scale: 0-10 Numeric Is Patient Pain Free? Yes Yes Yes 12/29/18 10:48 Wound Center Nurse 2 #1 Right Medial Ankle -Time 10:51 -Correct Patient Yes -Correct Side, Site, Position Yes -Correct Procedure Yes -Procedure Performed Yes -Type of Procedure Debridement -Clinical Debridement Subcutaneous -Post Debridement Size (cm) - Length 0.9 -Post Debridement Size (cm) - Width 1.2 -Post Debridement Size (cm) - Depth 0.1 -Total Square Cm 1.08 -Wound/Ulcer Outcome Not Healed -Ulcer Cleansing Rinsed/ Irrigated with Saline -Foul Odor after Cleansing No -Bioengineered Tissue No -Bleeding Controlled with Pressure -Offloading No -Type of Offloading -Treatment Response Procedure Tolerated Well Pain Scale: 0-10 Numeric Is Patient Pain Free? Yes Wound debrided: Right medial ankle Laterality: Right Type of Debridement: Excisional debridement Anesthesia Used: 4% Lidocaine Solution Depth: in the subcutaneous layer Percentage of wound debrided: 100 Instrument Used: 5mm curette Tissue Removed: Adherent slough, fibrin, hyperkeratotic tissue Severity: Fat Layer Exposed Amount of bleeding with debridement: Mild Bleeding Controlled with: Pressure Patient tolerated procedure well Assessment/Plan Assessment: Ulcer right medial ankle. Pain right lower extremity. Lower extremity edema. Other comorbidities Plan: Patient was carefully examined and evaluated again today for right medial ankle ulcer. Patient's sister is with him today. Continued improvement to ulcer site noted again this week. A subcutaneous excisional debridement was performed as noted in the clinical panel. Once complete, the ulcer site was dressed with an Unna boot followed by compression dressing. He has tolerated these well. The importance of compression as well as keeping pressure off of his ulcer site was stressed in great detail today. Patient says he understands this. X-rays taken of the area recently at the [facility] showed soft tissue swelling but no signs of osteomyelitis or soft tissue emphysema. LEAS and venous Doppler exams were reviewed which were read by the vascular specialist as showing sufficient blood flow to the lower extremity, however there was incompetence with veins in bilateral lower extremities. Full detailed report is in patient's chart. A diet high in protein was recommended for this patient to help optimize ulcer healing potential. All questions were answered to the patient's satisfaction. He was educated on all signs and symptoms of local and systemic infection and he was instructed to go to the emergency room immediately should he notice any of these. Patient will follow back up in office in 1 week for nurse visit for reapplication of Unna boot and wound evaluation, and patient will follow back up with me in 2 weeks. He is to follow-up sooner if needed for any reason before then.
== END 2019-01-01 23:59 ==
LOC: WC 10:30
PROVIDERS: Family Provider Family Medicine; PCP Family Medicine; Referring Provider Podiatrist; Visit Provider Podiatrist
DX: I73.9 Peripheral vascular disease, unspecified (principal); I87.2 Venous insufficiency (chronic) (peripheral); L97.312 Non-pressure chronic ulcer of right ankle with fat layer exposed; R60.0 Localized edema; M79.604 Pain in right leg
CPT/HCPCS: 11042; 29580; 99212; G0463

== ENCOUNTER 2019-01-12 10:30 | Outpatient (RCR) | payer OTHER, SELFPAY ==
[2019-01-02 00:53] VITALS: BP 112/61; PULSE 108; RESP 18; TEMP 36.9
[2019-01-03 11:23] VITALS: BP 121/71; PULSE 99; RESP 18; TEMP 37.1; BMI 27.4
[2019-01-09 12:37] VITALS: BP 152/69; PULSE 113; RESP 18; TEMP 37.2; BMI 27.4
[2019-01-12 10:53] VITALS: BP 121/72; PULSE 92; RESP 18; TEMP 36.1; BMI 27.4
--- NOTE | 2019-01-12 14:06 | PCM.WC.PN ---
(1) Ulcer of right lower extremity with fat layer exposed Status: Acute Current Visit: No Code(s): L97.912 - Non-pressure chronic ulcer of unspecified part of right lower leg with fat layer exposed (2) Delayed wound healing Status: Acute Current Visit: No Code(s): T14.8XXD - Other injury of unspecified body region, subsequent encounter (3) Pain in right lower leg Status: Acute Current Visit: No Code(s): M79.661 - Pain in right lower leg (4) Lower extremity edema Status: Acute Current Visit: No Code(s): R60.0 - Localized edema (5) Venous insufficiency (chronic) (peripheral) Status: Suspected Current Visit: No Code(s): I87.2 - Venous insufficiency (chronic) (peripheral) Type of Wound Date of Service: 01/12/19 Chief Complaint: right lower extremity ulcer History of Wound: This 62-year-old male was referred to the wound healing center for right medial lower extremity ulcer. Patient says this ulcer has been open for close to a year. He says when he initially noticed it, he was seen at an urgent care facility where he took an antibiotic. He said he never followed up with anyone for the ulcer after that. He says he has been dressing the site on his own with Neosporin and a bandage. He says the ulcer site is not getting any worse, but it is not improving either. He denies any purulence to the area or any other signs of infection. Progress of Wound: Ulcer appears healed today - Physical Exam Vital Signs Temp Pulse Resp BP 97.0 F L 92 18 121/72 H 01/12/19 10:53 01/12/19 10:53 01/12/19 10:53 01/12/19 10:53 General: Alert, Oriented x3, Cooperative, No apparent distress Extremities: Capillary Refill Less than 3 Seconds, No Calf Tenderness, Diminished Peripheral Pulses, Edema Skin: Ulcer/ Wound - Ulcer to right medial ankle appears healed today with no signs of local infection noted. Wound Measurements and Assessment WC - Nurse 1 - General Ulcer Measurement Start: 01/03/19 11:23 Freq: Status: Active Protocol: Activity Type Activity Date Activity User E-Sign Co-Sign Detail Recorded Client Recorded Date Recorded By Document 01/12/19 10:53 HI [id number] 01/12/19 10:54 HI 01/12/19 10:53 Wound Center Nurse 1 [Ulcer Assessment] #1 Right Medial Ankle -Current Size (cm) - Length 0.1 -Current Size (cm) - Width 0.1 -Current Size (cm) - Depth 0.1 -Total Square Cm 0.01 [Edema Assessment] -Right Calf (cm) 36 -Right Ankle (cm) 24 Musculoskeletal: No Tenderness to Palpation of Joints or Extremities Neurological: Sensory exam intact to light touch and pain Psych/Mental Status: Normal Affect, Appropriate Debridement Note No debridement was completed today Assessment/Plan Assessment: Ulcer right medial ankle. Pain right lower extremity. Lower extremity edema. Other comorbidities Plan: Patient was carefully examined and evaluated again today for right medial ankle ulcer. The patient appears to be healed at this time without any signs or symptoms of infection appreciated. The importance of compression was stressed again today even though he is healed. He is instructed to wear his compression stockings on a daily basis. Patient says he understands this. LEAS and venous Doppler exams were reviewed which were read by the vascular specialist as showing sufficient blood flow to the lower extremity, however there was incompetence with veins in bilateral lower extremities. Full detailed report is in patient's chart. All questions were answered to the patient's satisfaction. He was educated on all signs and symptoms of local and systemic infection and he was instructed to go to the emergency room immediately should he notice any of these in the future or should he notice any ulcers reopen. Patient will be discharged from the wound healing center at this time, but we he was instructed to follow-up sooner if needed for any reason.
== END 2019-02-01 23:59 ==
LOC: WC 10:30
PROVIDERS: Family Provider Family Medicine; PCP Family Medicine; Referring Provider Podiatrist; Visit Provider Podiatrist
DX: Z09 Encounter for follow-up examination after completed treatment for conditions other than malignant neoplasm (principal); I73.9 Peripheral vascular disease, unspecified; I87.2 Venous insufficiency (chronic) (peripheral); R60.0 Localized edema; M79.604 Pain in right leg
CPT/HCPCS: 29580; 99213; G0463

== ENCOUNTER 2023-04-29 15:44 | Emergency (ER) | payer MEDICARE, SELFPAY ==
[2023-04-29 15:46] VITALS: BP 124/95; PULSE 112; RESP 18; TEMP 36.1; O2SAT 99; BMI 25.7
--- NOTE | 2023-04-29 16:04 | CT_ITS ---
INDICATION: Trauma, fall 2 weeks ago with facial injury EXAMINATION: CT BRAIN - CT Head or Brain W/O Contrast Injection TECHNIQUE: Multiple axial images were obtained of the head without intravenous contrast. A radiation dose optimization technique was used for this scan. IV Contrast dosage and agent: None. COMPARISON: None. FINDINGS: BRAIN PARENCHYMA: No intra- or extra-axial hemorrhage. No evidence of acute infarct. No intracranial mass or mass effect. Posterior fossa structures are unremarkable. CSF SPACES: Appropriate for age. No hydrocephalus. Basal cisterns are patent. CALVARIUM, SKULL BASE, PARANASAL SINUSES AND MASTOID AIR CELLS: Right maxillary and ethmoid sinusitis. No acute fractures. ORBITS: Both globes, extraocular muscles, optic nerves and retrobulbar fat appear unremarkable. CT/Brain/Head without Contrast IMPRESSION: No acute intracranial findings. Electronically Signed: Denys Block MD at 16:33 EDT ,
--- NOTE | 2023-04-29 16:04 | CT_ITS ---
INDICATION: Trauma, right-sided facial swelling EXAMINATION: CT FACIAL BONES - CT Maxillofacial W/O Contrast Injection TECHNIQUE: Helically acquired images were obtained of the facial bones. A radiation dose optimization technique was used for this scan. IV Contrast dosage and agent: None. COMPARISON: None. FINDINGS: SOFT TISSUES: Mild right-sided facial soft tissue swelling. No discrete fluid collections. VISUALIZED PARANASAL SINUSES: Right maxillary and ethmoid sinusitis. VISUALIZED MASTOID AIR CELLS: Clear. FACIAL BONES, MANDIBLE AND TMJs: No displaced facial bone fracture. VISUALIZED DENTITION: Multiple periodontal osseous erosions about upper and lower teeth. Multiple dental caries. ORBITAL CONTENTS: Both globes, extraocular muscles and retrobulbar fat appear unremarkable. CT/Sinus/Facial Bone IMPRESSION: No acute fracture of the maxillofacial bones. Electronically Signed: Denys Block MD at 16:38 EDT ,
--- NOTE | 2023-04-29 16:05 | ED.RN ---
pt called in for update. very appreciative.
[2023-04-29 16:07] VITALS: TEMP 37.2; O2SAT 99
--- NOTE | 2023-04-29 16:07 | EDS_ITS ---
HPI History of Present Illness Chief Complaint: Fall Informant: patient Narrative Narrative: Patient is a 67-year-old male presenting for right-sided facial swelling. Patient states about 3 weeks ago he was walking down a grassy hill. He started to fall forward and ultimately landed on his head. He denies loss of consciousness but notes he was dazed at this time. He initially had a lot of swelling around his right face, eye area and had a bloody nose. The symptoms seem to resolved however some of the swelling came back over the last few days. He told his sister about it who lives in [place] and is his POA. She was concerned, contacted his PCP and they encouraged him to come to the ER for further evaluation. Patient denies any other complaint at this time. He states he is mostly concerned because he has a colonoscopy coming up and he is worried about that. Denies any acute vision changes, hearing changes, dental pain, trouble swallowing, shortness of breath, cough, chest pain or urinary symptoms. He notes that with the swelling this his face feels hot and that is what he describes as feeling like he has a fever. He does not feel like he has a fever or feel hot anywhere else on his body. He is not on any blood thinners. PFSH [facility] Medical History no medical history Home Medications chlorpromazine 50 mg tablet 150 mg PO QHS 11/07/18 [History Last Taken Unknown] lisinopril 10 mg tablet 10 mg PO DAILY 11/07/18 [History Last Taken Unknown] amoxicillin 875 mg-potassium clavulanate 125 mg tablet 1 tab PO BID #28 tabs 04/29/23 [Rx Last Taken Unknown] Allergy/AdvReac Type Severity Reaction Status Date / Time fluphenazine enanthate AdvReac Vomiting Verified 04/29/23 15:48 [From Prolixin] fluphenazine HCl AdvReac Vomiting Verified 04/29/23 15:48 [From Prolixin] haloperidol [From Haldol] AdvReac Other Verified 04/29/23 15:48 haloperidol lactate AdvReac Other Verified 04/29/23 15:48 [From Haldol] trifluoperazine AdvReac Vomiting Verified 04/29/23 15:48 [From Stelazine] Social History Smoking Status: Never smoker ROS ROS ED Constitutional Constitutional ED: Denies chills or fever(s) Eyes Eyes: Denies blurry vision or change in vision ENT ENT ED: Reports other Details: right facial swelling ; Denies ear pain, rhinorrhea or sore throat Cardiovascular Cardiovascular: Denies chest pain or palpitations Respiratory/Chest Respiratory/Chest: Denies cough Gastrointestinal Gastrointestinal: Denies abdominal pain, nausea or vomiting Genitourinary Genitourinary ED: Denies dysuria Musculoskeletal Musculoskeletal: Denies arthralgias, myalgias or neck pain Integumentary Denies rash Neurologic Neurologic: Denies headache(s) or weakness Psychiatric Psychiatric: Reports anxiety Hematologic/Lymphatic Hematologic/Lymphatic: Denies easy bleeding or easy bruising EXAM Physical Exam Const Vital Signs: 04/29/23 15:46 04/29/23 16:07 04/29/23 16:07 Temperature 97 F L 99 F Temperature Source Temporal Oral Pulse Rate 112 H Respiratory Rate 18 Respiratory Effort Normal Respiratory Depth Normal Respiratory Pattern Normal Blood Pressure 124/95 H Blood Pressure Mean 104 Pulse Ox 99 99 Oxygen Delivery Method Room Air Room Air Positive well nourished and well developed General Appearance ED: well developed and NAD HEENT Reports TM's clear HEENT Narrative: There are some subtle soft tissue swelling noted of the right periorbital area and the right jawline. It is soft. Do not appreciate any associated induration, fluctuance or cellulitis. Patient does not have any obvious dental abscess or dentalgia on exam. No trismus. Sublingual mucosa is soft. Negative for atraumatic Nose: Negative for septum abnormal Tympanic Membrane ED: Yes TM's clear Eyes PERRL and EOMs intact bilaterally Neck full ROM Chest Wall inspection of chest normal and palpation of chest normal Resp normal respiratory effort and clear to auscultation bilaterally Cardio regular rhythm Rate: regular rate GI normal to inspection, nondistended, normoactive bowel sounds and non-tender Back/Spine normal to inspection and no thoracic nor lumbar tenderness Extremity normal to inspection and full ROM General Extremety ED: Negative for edema General Extremity: Negative for edema Neuro oriented x3 and moves all extremities Psych mental status grossly normal and thought process normal Skin no rashes or lesions noted and no wounds MDM MDM MDM Narrative Medical decision making narrative: Patient is evaluated for facial swelling after a fall 2 to 3 weeks ago. Patient has some subtle edema to the right side of his face however he does not appear infectious. We will obtain imaging to rule out intracranial hemorrhage as sound like he had a pretty significant fall as well as facial CT to rule out any underlying fracture. Question of this could be some dependent edema related with his recent injury. Do not appreciate any other peripheral edema and I have a lower suspicion for nephrotic syndrome or fluid overload/heart failure. I do not think lab work is indicated at this time. Patient is mildly tachycardic in the ER however I do question if this is more anxiety related. He was not tachycardic on my evaluation. CT of the brain does not show any acute intracranial findings. He does not have any acute fracture of the maxillofacial bones however he does have mild right sided facial soft tissue swelling with no discrete fluid collection, multiple periodontal osseous eruptions about upper and lower teeth with multiple dental caries and right maxillary and ethmoid sinusitis. Patient be treated more as a sinusitis with Augmentin. He is agreeable with this plan of care. I do not think the swelling is particularly related to his trauma couple weeks ago. We will follow-up outpatient with his PCP. Given return precaution. Nursing staff will contact patient's POA, his sister on our plan of care. Patient does not have any meningeal signs, abscess or other more severe features that I think require further work-up, lab work or specialty consultants at this time Radiography Diagnostic Testing: Clinical Impression(s) from Imaging Studies Brain CT 04/29/23 16:04 IMPRESSION: No acute intracranial findings. Electronically Signed: Denys Block MD at 16:33 EDT , Facial/Sinus 04/29/23 16:04 IMPRESSION: No acute fracture of the maxillofacial bones. Electronically Signed: Denys Block MD at 16:38 EDT , Discharge Plan Triage Chief Complaint: Fall ED Provider: Iliana Dillon Dx/Rx/DC Orders Clinical Impression: Right maxillary sinusitis, Right facial swelling Instructions: ED Mechanical Fall, ED Sinusitis (Antibiotic Treatment) Prescriptions: New amoxicillin-pot clavulanate 875-125 mg tablet 1 tab PO BID Qty: 28 0RF No Action lisinopril 10 MG tablet 10 mg PO DAILY Patient Comments: Take 1 tablet by mouth once daily. chlorpromazine 50 MG tablet 150 mg PO QHS Primary Care Provider: Delon Ocasio Referrals: Delon Ocasio MD [Primary Care Provider] - Activity Restrictions/Additional Instructions: Your CT of the brain does not show any signs of trauma or bleeding. Your CT of the face does not show any signs of trauma but does show signs of inflammation of your sinuses (sinusitis) on the right side. I suspect this is causing the swelling. The antibiotics will treat that. You may also take [id number] ibuprofen or Tylenol to help with the discomfort. Disposition Disposition: Home, Self Care
== END 2023-04-29 17:35 | disposition home or self-care (01) ==
PROVIDERS: Emergency Provider Emergency Medicine; PCP Family Medicine; Visit Provider Emergency Medicine
DX: R22.0 Localized swelling, mass and lump, head (principal); J32.0 Chronic maxillary sinusitis
CPT/HCPCS: 70450; 70486; 99282

== ENCOUNTER 2024-10-15 07:16 | Emergency (ER) | payer MEDICARE, SELFPAY ==
[2024-10-15 07:17] VITALS: BP 137/61; PULSE 58; RESP 18; TEMP 37; O2SAT 99; BMI 25.8
--- NOTE | 2024-10-15 07:37 | ED.VIS.DENTA ---
HPI History of Present Illness Chief Complaint: Dental Informant: patient Onset/Context/Timing Onset: Weeks Context: Gradual Onset Timing: Continuous Current Severity: Mild Maximum Severity: Mild Associated Symptoms Assocated Symptom - Dental: jaw swelling Narrative Narrative: 68-year-old male history of schizoaffective disorder. States has had right lower jaw dental discomfort and mild swelling for 2 to 3 weeks. No fever. No trouble swallowing or breathing. 4 weeks ago he had dentures placed by [facility]. Prior similar symptoms: Yes Recent Illness/Hospitalization: No PFSH PFS Home Medications ?Medication ?Instructions ?Recorded ?Last Taken ?Type chlorpromazine 50 mg tablet 150 mg PO QHS 11/07/18 Unknown History lisinopril 10 mg tablet 10 mg PO DAILY 11/07/18 Unknown History amoxicillin 875 mg-potassium 1 tab PO BID #28 tabs 04/29/23 Unknown Rx clavulanate 125 mg tablet penicillin V potassium 500 mg 500 mg PO 4X/DAY #40 tabs 10/15/24 Unknown Rx tablet penicillin V potassium 500 mg 500 mg PO 4X/DAY #40 tabs 10/15/24 Unknown Rx tablet Allergy/AdvReac Type Severity Reaction Status Date / Time fluphenazine enanthate (From AdvReac Vomiting Verified 10/15/24 07:16 Prolixin) fluphenazine HCl (From AdvReac Vomiting Verified 10/15/24 07:16 Prolixin) haloperidol (From Haldol) AdvReac Other Verified 10/15/24 07:16 haloperidol lactate (From AdvReac Other Verified 10/15/24 07:16 Haldol) trifluoperazine (From AdvReac Vomiting Verified 10/15/24 07:16 Stelazine) Social History Smoking Status: Never smoker ROS ROS ED ROS Narrative Right lower jaw mild swelling. Dental pain. Constitutional Constitutional ED: Denies chills or fever(s) Eyes Eyes: Denies blurry vision ENT ENT ED: Denies ear pain Cardiovascular Cardiovascular: Denies chest pain Respiratory/Chest Respiratory/Chest: Denies cough Gastrointestinal Gastrointestinal: Denies abdominal pain Genitourinary Genitourinary ED: Denies dysuria Musculoskeletal Musculoskeletal: Denies arthralgias Integumentary Denies abscess Neurologic Neurologic: Denies headache(s) Psychiatric Psychiatric: Denies anxiety or depression Endocrine Endocrinology: Denies cold intolerance, heat intolerance, polydipsia, polyphagia or polyuria Hematologic/Lymphatic Hematologic/Lymphatic: Denies easy bleeding, easy bruising or lymphadenopathy Allergic/Immunologic Allergic/Immunologic ED: Denies mouth swelling, tongue swelling or urticaria EXAM Physical Exam Narrative Exam Narrative: Well-appearing 68-year-old male. Vital signs stable afebrile. No distress. H EENT exam pupils round reactive light. No facial droop. Upper dentition of all been removed. Currently does not have his dentures in. He only has a few lower dentition multiple missing teeth. Right lower last molar has had significant dental work. Scold plated. Tender to palp's. Nothing to drain. No trismus. No trouble close tongue is midline. No trouble swallowing or breathing. Moist mucous membranes. He has mild swelling to the right lower jawline. If adenopathy trachea nontender. Lungs clear. Heart regular rhythm. Abdomen soft. Moving all 4 extremities. Patient is awake and alert. Const Vital Signs: 10/15/24 07:17 Temperature 98.6 F Temperature Source Temporal Pulse Rate 58 L Respiratory Rate 18 Blood Pressure 137/61 H Blood Pressure Mean 86 Pulse Ox 99 Oxygen Delivery Method Room Air Positive well nourished and well developed; Negative for obese, cachectic, contractures or unkempt General Appearance ED: well developed and NAD; Negative for unkempt, cachectic or contractures Nutritional Appearance: Negative for cachectic or obese HEENT HEENT Narrative: Right lower last molar gold plated. Tender to palpation. Mild gingival swelling and redness. No drainable abscess. No trismus. The floor of his mouth is normal and nontender. Mouth ED: Yes lips normal, Yes tongue normal, Yes salivary gland normal, No mouth trauma and No salivary gland abnormal Mouth: lips normal, tongue normal, salivary gland normal, No mouth trauma and No salivary gland abnormal Teeth and Gingiva: abnormal tooth and associated gingiva Eyes PERRL and EOMs intact bilaterally Neck no lymphadenopathy, supple and no JVD General: normal visual inspection Lymph Lymphatic: no lymphadenopathy noted Chest Wall inspection of chest normal and palpation of chest normal Resp normal respiratory effort, no retractions and clear to auscultation bilaterally Cardio regular rate, regular rhythm, S1 normal heart sound, S2 normal heart sound and no murmurs GI normal to inspection, nondistended, normoactive bowel sounds, non-tender, non-distended and no masses Back/Spine no CVA tenderness Extremity normal to inspection and no joint enlargement Neuro oriented x3, CN's II-XII intact bilaterally and moves all extremities Sensorium / Orientation: alert, oriented to person, oriented to place and oriented to time Motor Exam: strength 5/5 throughout Psych mental status grossly normal Appearance: Negative for unkempt Mood & Affect: Negative for anxious or tearful Skin no rashes or lesions noted and no wounds MDM MDM MDM Narrative Medical decision making narrative: 68-year-old male. Infected right left lower molar. Will be placed on Pen-Vee K 500 4 times daily for 10 days. First dose given here. Prescription sent to his pharmacy. He has a dentist at [facility] will call them and follow-up on Wednesday. History & Record Review Discussion w/independent historian: Patient Additional record(s) reviewed:: Prior inpatient record, Prior outpatient record, Prior ED visit and Prior labs Discharge Plan Triage Chief Complaint: Dental ED Provider: Ignacio Cameron Dx/Rx/DC Orders Clinical Impression: Pain, dental, Dental infection Instructions: Dental Abscess, ED Dental Pain Prescriptions: New penicillin V potassium 500 mg tablet 500 mg PO 4X/DAY Qty: 40 0RF penicillin V potassium 500 mg tablet 500 mg PO 4X/DAY Qty: 40 0RF No Action lisinopril 10 MG tablet 10 mg PO DAILY Patient Comments: Take 1 tablet by mouth once daily. chlorpromazine 50 MG tablet 150 mg PO QHS amoxicillin-pot clavulanate 875-125 mg tablet 1 tab PO BID Qty: 28 0RF Primary Care Provider: Delon Ocasio Referrals: Delon Ocasio MD [Primary Care Provider] - Activity Restrictions/Additional Instructions: Tylenol Motrin for pain. The antibiotic penicillin 4 times a day till gone. Warm salt water rinses to your mouth. Call your dentist at [facility] on Wednesday and see if they get you in the next few days to be reevaluated. Print Language: [place]orese Disposition Disposition: Home, Self Care
[2024-10-15] MEDS: Penicillin Vk 250 MG Tablet 500 MG PO (07:44)
== END 2024-10-15 07:45 | disposition home or self-care (01) ==
PROVIDERS: Emergency Provider Emergency Medicine; PCP Family Medicine; Visit Provider Emergency Medicine
DX: K08.89 Other specified disorders of teeth and supporting structures (principal); K04.7 Periapical abscess without sinus; Z97.2 Presence of dental prosthetic device (complete) (partial)
CPT/HCPCS: 99282

== ENCOUNTER 2024-11-28 12:51 | Emergency (ER) | payer MEDICARE, SELFPAY ==
[2024-11-28 12:53] VITALS: BP 131/79; PULSE 115; RESP 16; TEMP 36.6; O2SAT 98; BMI 24.7
[2024-11-28] MEDS: Ibuprofen 600 MG Tablet PO (13:54)
[2024-11-28 14:01] VITALS: BP 131/79; PULSE 115; RESP 16; TEMP 36.6; O2SAT 98
--- NOTE | 2024-11-28 14:02 | EDS_ITS ---
HPI History of Present Illness Chief Complaint: Dental Narrative Narrative: Chief complaint and HPI: Right lower dental pain. 68-year-old male with past medical history of dental infections, schizoaffective disorder presents for evaluation of right lower dental pain. Onset of symptoms several days. Patient states he has history of dental infections in this area. States that in October he had his tooth pulled. He denies any fever, chills, shortness of breath, chest pain, nausea, vomiting. Denies any difficulty swallowing or change in voice. Eating and drinking well. Denies any neck pain or stiffness. Review of systems: See HPI Medications: As listed on the chart Allergies: As listed on the chart PFSH: Per chart Vital signs: As listed on the chart. Reviewed. Physical exam: Gen: A&O x3, NAD Head: Normocephalic, atraumatic Eyes: No sclera icterus, conjunctiva clear, PERRL, EOMI ENT: TMs clear BL, moist mucous membranes, posterior oropharynx unremarkable, uvula midline, tonsils not enlarged, no tongue enlargement, no submandibular swelling/Saúl angina, tolerating secretions, normal phonation, upper dentition missing, few lower scattered dentition but most missing, right lower posterior gum is mildly erythematous and mildly tender, no abscess, no swelling of the jaw or face Neck: Trachea midline, No JVD, Full ROM, No meningismus no lymphadenopathy, CV: RRR, no murmurs Resp: Lungs CTA BL, no w/r/c Musc: Full ROM Skin: Warm, dry, no rash Neuro: Alert, oriented, grossly intact, sensation intact Psych: Cooperative, appropriate mood and affect [facility] Medical History (Updated 11/28/24 @ 13:[address] Humberto Eagle, DO) Dental abscess Home Medications ?Medication ?Instructions ?Recorded ?Last Taken ?Type chlorpromazine 50 mg tablet 150 mg PO QHS 11/07/18 Unk nown History lisinopril 10 mg tablet 10 mg PO DAILY 11/07/18 Unkn own History amoxicillin 875 mg-potassium 1 tab PO BID 7 days #14 t abs 11/28/24 Unknown Rx clavulanate 125 mg tablet Allergy/AdvReac Type Severity Reaction Status Date / Time fluphenazine enanthate (From AdvReac Vomiting Verified 11/28/24 12:55 Prolixin) fluphenazine HCl (From AdvReac Vomiting Verified 11/28/24 12:55 Prolixin) haloperidol (From Haldol) AdvReac Other Verified 11/28/24 12:55 haloperidol lactate (From AdvReac Other Verified 11/28/24 12:55 Haldol) trifluoperazine (From AdvReac Vomiting Verified 11/28/24 12:55 Stelazine) Social History housing: house Smoking Status: Never smoker EXAM Physical Exam Const Vital Signs: 11/28/24 12:53 11/28/24 14:01 Temperature 97.8 F 97.8 F Temperature Source Oral Pulse Rate 115 H 115 H Respiratory Rate 16 16 Blood Pressure 131/79 H 131/79 H Blood Pressure Mean 96 96 Pulse Ox 98 98 Oxygen Delivery Method Room Air MDM MDM MDM Narrative Medical decision making narrative: 68-year-old male with past medical history of dental infections, schizoaffective disorder presents for evaluation of right lower dental pain. Onset of symptoms several days. Denies any systemic symptoms. Has not taken anything for the aisha n such as Tylenol or ibuprofen. See physical exam findings. Patient's physical exam is unremarkable except for some mild right lower gingiva irritation. May be early dental infection. Not Saúl angina. Ibuprofen ordered for pain. Patient will be placed on Augmentin. Told to follow-up with his dentist and PCP. Return back to the ED if symptoms change or worsen. He confirmed understanding of the plan. Impression: 1. Right dental pain, concern for early dental infection 2. Recurrent dental infections Discharge Plan Triage Chief Complaint: Dental ED Provider: Humberto Eagle Dx/Rx/DC Orders Clinical Impression: Pain, dental Instructions: ED Dental Pain Prescriptions: New amoxicillin-pot clavulanate 875-125 mg tablet 1 tab PO BID 7 Days Qty: 14 0RF Discontinued amoxicillin-pot clavulanate 875-125 mg tablet 1 tab PO BID Qty: 28 0RF penicillin V potassium 500 mg tablet 500 mg PO 4X/DAY Qty: 40 0RF penicillin V potassium 500 mg tablet 500 mg PO 4X/DAY Qty: 40 0RF No Action lisinopril 10 MG tablet 10 mg PO DAILY Patient Comments: Take 1 tablet by mouth once daily. chlorpromazine 50 MG tablet 150 mg PO QHS Primary Care Provider: Delon Ocasio Referrals: Follow-up with your dentist [Other] - 3-5 Days Delon Ocasio MD [Primary Care Provider] - 3-5 Days Activity Restrictions/Additional Instructions: Follow-up with your dentist as well as your PCP. Return back to the ED if symptoms change or worsen. Tylenol Motrin as needed for pain. You received Motrin here in the emergency department, known Motrin for 4 to 6 hours. Print Language: Romansh Disposition Disposition: Home, Self Care Discharge Date/Time: 11/28/24 14:02
== END 2024-11-28 14:02 | disposition home or self-care (01) ==
LOC: ED 13:53
PROVIDERS: Emergency Provider Surgery; PCP Family Medicine; Visit Provider Surgery
DX: K08.89 Other specified disorders of teeth and supporting structures (principal); K04.7 Periapical abscess without sinus
CPT/HCPCS: 99282

== ENCOUNTER 2024-12-16 12:54 | Emergency (ER) | payer MEDICARE, SELFPAY ==
[2024-12-16 12:56] VITALS: BP 124/75; PULSE 110; RESP 16; TEMP 36.8; O2SAT 99; BMI 24.3
[2024-12-16 14:56] VITALS: PULSE 93; RESP 16; O2SAT 99
--- OUTSIDE RECORDS SUMMARY | 2024-12-16 15:39 | XMS RPT_ITS | CCD ---
Author Organization [facility] Care Team Providers Care Head Athletic Trainer Name Role Phone Daniel Douglas MD Primary Care Provider Daniel Douglas MD Primary Care Provider Christine FIXED CAPITAL CLERK.Petra FERNANDO Unavailable [phone] Juan Antonio FIXED CAPITAL CLERK.Beni FERNANDO Unavailable [phone] DANIEL DOUGLAS Primary Care Unavailable DANIEL DOUGLAS Attending DANIEL Dumont Primary Care Unavailable DANIEL DOUGLAS Attending Unavailable DANIEL DOUGLAS Primary Care Unavailable DANIEL DOUGLAS Referring Unavailable DANEIL DOUGLAS Primary Care Unavailable STEVE SOLIS Referring Unavailable Dr. Daniel Douglas MD Primary Care Provider Dr. Ignacio Cameron MD Emergency Provider Dr. Ignacio Cameron MD Attending Provider Dr. Humberto Eagle DO Emergency Provider Humberto Eagle Attending Unavailabl e Daniel Douglas Primary Care Unavailable Ignacio Cameron Attending Unavailable Daniel Douglas Primary Care Unavailable Allergies Allergy Classification Reported Allergen(s) Allergy Type Date of Onset Reaction(s) Facility (17 sources) fluPHENAZine; Translations: [FLUPHENAZINE ENANTHATE] Drug Allergy 7 Vomiting [facility] (17 sources) Haloperidol; Translations: [HALOPERIDOL LACTATE] Drug Allergy 7 Other [facility] (14 sources) Trifluoperazine; Translations: [TRIFLUOPERAZINE HCL] Drug Allergy 7 [facility] (4 sources) fluPHENAZine; Translations: [fluphenazine HCl] Drug Allergy 3 Vomiting [facility] (3 sources) Haloperidol Drug Allergy 3 Other [facility] (3 sources) Trifluoperazine Drug Allergy 3 Vomiting [facility] (1 source) fluPHENAZine Drug Allergy 5 [facility] Repository (1 source) Haloperidol Drug Allergy 5 [facility] (1 source) Haloperidol Drug Allergy 5 [facility] (1 source) Trifluoperazine Drug Allergy 5 [facility] Repository Medications Current Medications Medication Drug Class(es) Dates Sig (Normalized) Sig (Original) amoxicillin 875 mg / clavulanate 125 mg oral tablet (4 sources) Penicillin-class Antibacterial Start: 04-29-2023 End: 11-28-2024 Amoxicillin-Pot Clavulanate 875-125 mg tablet Active 1 {tbl} PO TWICE A DAY 15 01November 28, 2024 12:00am Start: 04-29-2023 take 1 tablet by bjorn th twice daily Amoxicillin-Pot Clavulanate Active 1 TABLET PO TWICE A DAY April 29, 2023 12:00am chlorproMAZINE hydrochloride 50 mg oral tablet (16 sources) Phenothiazine Start: 11-07-2018 take 150 mg by mouth at bedtime Chlorpromazine Active 150 MG PO AT BEDTIME November 07, 2018 12:00am Start: 06-20-2018 take 1 tablet by bjorn th at bedtime Chlorpromazine 50 MG tablet Active 150 mg PO AT BEDTIME November 07, 2018 12:00am Comment on above: take one three times daily lisinopril 10 mg oral tablet (18 sources) Angiotensin Converting Enzyme Inhibitor Start: 11-07-2018 End: 02-07-2024 take 1 tablet by mouth once daily Lisinopril 10 MG tablet Active 10 mg PO DAILY November 07, 2018 12:00am Comment on above: Take 1 tablet by bjorn th once daily. Completed/Discontinued Medications Medication Drug Class(es) Dates Sig (Normalized) Sig (Original) meloxicam 15 mg oral tablet (5 sources) Nonsteroidal Anti-inflammatory Drug Start: 07-16-2021 End: 07-27-2022 take 1 tablet by mouth once daily at mealtime meloxicam (MOBIC) 15 mg tablet Take 1 tablet by mouth once daily. Take with food. 15 tablet 2 07/16/2021 07/27/2022 Discontinued Comment on above: Take 1 tablet by bjorn th once daily. Take with food. penicillin v potassium 500 mg oral tablet (4 sources) Start: 10-15-2024 End: 11-28-2024 take 1 tablet by mouth four times daily Penicillin V Potassium 500 mg tablet Discontinued 500 mg PO 4 TIMES DAILY 40 October 15, 2024 12:00am November 28, 2024 1:53pm polyethylene glycol [id number] [id number] mg / potassium chloride 1480 mg / sodium bicarbonate 5720 mg / sodium chloride 20033 mg powder for oral solution (1 source) Osmotic Laxative Start: 04-26-2023 End: 04-26-2023 take 420 g by mouth once peg-electrolyte soln (NULYTELY) 420 gram suspension Indications: Positive fecal occult blood test Take 4,000 mL by mouth one time only for 1 dose. 1 Each 0 04/26/2023 04/26/2023 Comment on above: Take 4,000 mL by bjorn th one time only for 1 dose. Problems Active Problems Problem Classification Problem Date Documented Date Episodic/Chronic Chronic ulcer of skin (3 sources) Ulcer of lower extremity; Translations: [Non-pressure chronic ulcer of unspecified part of right lower leg with fat layer exposed] 12-15-2018 Chronic Disorders of lipid metabolism (3 sources) Hyperlipidemia; Translations: [Hyperlipidemia, unspecified] Onset: 02-07-2024 02-07-2024 Chronic Disorders of teeth and jaw (6 sources) Toothache; Translations: [Other specified disorders of teeth and supporting structures] Onset: 11-30-2024 10-15-2024 Episodic Essential hypertension (18 sources) Essential hypertension; Translations: [Essential (primary) hypertension] Onset: 02-04-2010 Chronic Other connective tissue disease (3 sources) Pain of right lower leg; Translations: [Pain in right lower leg] 12-15-2018 Episodic Other injuries and conditions due to external causes (3 sources) Delayed healing of wound; Translations: [Other injury of unspecified body region, subsequent encounter] 12-15-2018 Episodic Other non-traumatic joint disorders (1 source) Pain in right knee; Translations: [Pain in joint, lower leg] 11-10-2021 Episodic Other screening for suspected conditions (not mental disorders or infectious disease) (4 sources) Patient encounter status; Translations: [Encounter for screening for malignant neoplasm of colon] Episodic Other skin disorders (3 sources) Facial swelling ; Translations: [Localized swelling, mass and lump, head] 04-29-2023 Episodic Other upper respiratory infections (3 sources) Maxillary sinusitis; Translations: [Chronic maxillary sinusitis] 04-29-2023 Chronic Residual codes; unclassified (3 sources) Edema of lower extremity; Translations: [Localized edema] 12-15-2018 Episodic Schizophrenia and other psychotic disorders (18 sources) Schizophrenic disorders ; Translations: [Schizophrenia, unspecified] Onset: 05-08-2010 05-08-2010 Chronic Past or Other Problems Problem Classification Problem Date Documented Da te Episodic/Chronic Diabetes mellitus without complication (4 sources) Increased glucose level; Translations: [Other abnormal glucose] Onset: 02-07-2024 02-02-2023 Episodic Other aftercare (1 source) Other custodial (current) drug therapy; Translations: [Encounter for long-term (current) use of medications] Onset: 10-21-2023 Episodic Other gastrointestinal disorders (6 sources) Occult blood in stools; Translations: [Other fecal abnormalities] Onset: 05-07-2023 02-08-2023 Episodic Results Test Name Value Interpretation Reference Range Facility Emergency Department Summary on 11-28-2024 Emergency Department Summary [facility] Medical Records Department [address] [place] [id number] Emergency Department Summary 11/28/24 MR#: [id number] Acct: [id number] Name: WILBERT DELUCA Rep #: [id number] : 1955 68 From: Humberto Eagle DO PCP: Dr. Daniel Douglas MD Status:DEP ER Location: ED HPI History of Present Illness Chief Complaint: Dental Narrative Narrative: Chief complaint and HPI: Right lower dental pain. 68-year-old male with past medical history of dental infections, schizoaffective disorder presents for evaluation of right lower dental pain. Onset of symptoms several days. Patient states he has history of dental infections in this area. States that in October he had his tooth pulled. He denies any fever, chills, shortness of breath, chest pain, nausea, vomiting. Denies any difficulty swallowing or change in voice. Eating and drinking well. Denies any neck pain or stiffness. Review of systems: See HPI Medications: As listed on the chart Allergies: As listed on the chart PFSH: Per chart Vital signs: As listed on the chart. Reviewed. Physical exam: Gen: A O x3, NAD Head: Normocephalic, atraumatic Eyes: No sclera icterus, conjunctiva clear, PERRL, EOMI ENT: TMs clear BL, moist mucous membranes, posterior oropharynx unremarkable, uvula midline, tonsils not enlarged, no tongue enlargement, no submandibular swelling/Saúl angina, tolerating secretions, normal phonation, upper dentition missing, few lower scattered dentition but most missing, right lower posterior gum is mildly erythematous and mildly tender, no abscess, no swelling of the jaw or face Neck: Trachea midline, No JVD, Full ROM, No meningismus no lymphadenopathy, CV: RRR, no murmurs Resp: Lungs CTA BL, no w/r/c Musc: Full ROM Skin: Warm, dry, no rash Neuro: Alert, oriented, grossly intact, sensation intact Psych: Cooperative, appropriate mood and affect [facility] Medical History (Updated 11/28/24 @ 13:[address] Humberto Eagle, DO) Dental abscess Home Medications ???Medication ???Instructions ???Recorded ???Last Taken ???Type chlorpromazine 50 mg tablet 150 mg PO QHS 11/07/18 Unknown His tory lisinopril 10 mg tablet 10 mg PO DAILY 11/07/18 Unknown Hi story amoxicillin 875 mg-potassium 1 tab PO BID 7 days #14 tabs 11/28 Unknown Rx clavulanate 125 mg tablet Allergy/AdvReac Type Severity Reaction Status Date / Time fluphenazine enanthate (From AdvReac Vomiting Verified 11/28/24 12:55 Prolixin) fluphenazine HCl (From AdvReac Vomiting Verified 11/28/24 12:55 Prolixin) haloperidol (From Haldol) AdvReac Other Verified 11/28/24 12:55 haloperidol lactate (From AdvReac Other Verified 11/28/24 12:55 Haldol) trifluoperazine (From AdvReac Vomiting Verified 11/28/24 12:55 Stelazine) Social History housing: house Smoking Status: Never smoker EXAM Physical Exam Const Vital Signs: 11/28/24 12:53 11/28/24 14:01 Temperature 97.8 F 97.8 F Temperature Source Oral Pulse Rate 115 H 115 H Respiratory Rate 16 16 Blood Pressure 131/79 H 131/79 H Blood Pressure Mean 96 96 Pulse Ox 98 98 Oxygen Delivery Method Room Air MDM MDM MDM Narrative Medical decision making narrative: 68-year-old male with past medical history of dental infections, schizoaffective disorder presents for evaluation of right lower dental pain. Onset of symptoms several days. Denies any systemic symptoms. Has not taken anything for the pain such as Tylenol or ibuprofen. See physical exam findings. Patient's physical exam is unremarkable except for some mild right lower gingiva irritation. May be early dental infection. Not Saúl angina. Ibuprofen ordered for pain. Patient will be placed on Augmentin. Told to follow-up with his dentist and PCP. Return back to the ED if symptoms change or worsen. He confirmed understanding of the plan. Impression: 1. Right dental pain, concern for early dental infection 2. Recurrent dental infections Discharge Plan Triage Chief Complaint: Dental ED Provider: Humberto Eagle Dx/Rx/DC Orders Clinical Impression: Pain, dental Instructions: ED Dental Pain Prescriptions: New amoxicillin-pot clavulanate 875-125 mg tablet 1 tab PO BID 7 Days Qty: 14 0RF Discontinued amoxicillin-pot clavulanate 875-125 mg tablet 1 tab PO BID Qty: 28 0RF penicillin V potassium 500 mg tablet 500 mg PO 4X/DAY Qty: 40 0RF penicillin V potassium 500 mg tablet 500 mg PO 4X/DAY Qty: 40 0RF No Action lisinopril 10 MG tablet 10 mg PO DAILY Patient Comments: Take 1 tablet by mouth once daily. chlorpromazine 50 MG tablet 150 mg PO QHS Primary Care Provider: Daniel Douglas Referrals: Follow-up with your dentist [Other] - 3-5 Days (more content not included)... Normal [facility] Emergency Department Summary on 10-15-2024 Emergency Department Summary [facility] Medical Records Department [address] [place] [address] Emergency Department Summary 10/15/24 MR#: [id number] Acct: [id number] Name: WILBERT DELUCA Rep #: [id number] : 1955 68 From: Ignacio Cameron MD PCP: Dr. Dnaiel Douglas MD Status:REG ER Location: ED HPI History of Present Illness Chief Complaint: Dental Informant: patient Onset/Context/Timing Onset: Weeks Context: Gradual Onset Timing: Continuous Current Severity: Mild Maximum Severity: Mild Associated Symptoms Assocated Symptom - Dental: jaw swelling Narrative Narrative: 68-year-old male history of schizoaffective disorder. States has had right lower jaw dental discomfort and mild swelling for 2 to 3 weeks. No fever. No trouble swallowing or breathing. 4 w eeks ago he had dentures placed by [facility]. Prior similar symptoms: Yes Recent Illness/Hospitalization: No PFSH PFSH Home Medications ???Medication ???Instructions ???Recorded ???Last Taken ???Type chlorpromazine 50 mg tablet 150 mg PO QHS 11/07/18 Unknown His tory lisinopril 10 mg tablet 10 mg PO DAILY 11/07/18 Unknown Hi story amoxicillin 875 mg-potassium 1 tab PO BID #28 tabs 04/29/23 Unk nown Rx clavulanate 125 mg tablet penicillin V potassium 500 mg 500 mg PO 4X/DAY #40 tabs 10/15/24 Unknown Rx tablet penicillin V potassium 500 mg 500 mg PO 4X/DAY #40 tabs 10/15/24 Unknown Rx tablet Allergy/AdvReac Type Severity Reaction Status Date / Time fluphenazine enanthate (From AdvReac Vomiting Verified 10/15/24 07:16 Prolixin) fluphenazine HCl (From AdvReac Vomiting Verified 10/15/24 07:16 Prolixin) haloperidol (From Haldol) AdvReac Other Verified 10/15/24 07:16 haloperidol lactate (From AdvReac Other Verified 10/15/24 07:16 Haldol) trifluoperazine (From AdvReac Vomiting Verified 10/15/24 07:16 Stelazine) Social History Smoking Status: Never smoker ROS ROS ED ROS Narrative Right lower jaw mild swelling. Dental pain. Constitutional Constitutional ED: Denies chills or fever(s) Eyes Eyes: Denies blurry vision ENT ENT ED: Denies ear pain Cardiovascular Cardiovascular: Denies chest pain Respiratory/Chest Respiratory/Chest: Denies cough Gastrointestinal Gastrointestinal: Denies abdominal pain Genitourinary Genitourinary ED: Denies dysuria Musculoskeletal Musculoskeletal: Denies arthralgias Integumentary Denies abscess Neurologic Neurologic: Denies headache(s) Psychiatric Psychiatric: Denies anxiety or depression Endocrine Endocrinology: Denies cold intolerance, heat intolerance, polydipsia, polyphagia or polyuria Hematologic/Lymphatic Hematologic/Lymphatic: Denies easy bleeding, easy bruising or lymphadenopathy Allergic/Immunologic Allergic/Immunologic ED: Denies mouth swelling, tongue swelling or urticaria EXAM Physical Exam Narrative Exam Narrative: Well-appearing 68-year-old male. Vital signs stable afebrile. No distress. H EENT exam pupils round reactive light. No facial droop. Upper dentition of all been removed. Currently does not have his dentures in. He only has a few lower dentition multiple missing teeth. Right lower last molar has had significant dental work. Scold plated. Tender to palp's. Nothing to drain. No trismus. No trouble close tongue is midline. No trouble swallowing or breathing. Moist mucous membranes. He has mild swelling to the right lower jawline. If adenopathy trachea nontender. Lungs clear. Heart regular rhythm. Abdomen soft. Moving all 4 extremities. Patient is awake and alert. Const Vital Signs: 10/15/24 07:17 Temperature 98.6 F Temperature Source Temporal Pulse Rate 58 L Respiratory Rate 18 Blood Pressure 137/61 H Blood Pressure Mean 86 Pulse Ox 99 Oxygen Delivery Method Room Air Positive well nourished and well developed; Negative for obese, cachectic, contractures or unkempt General Appearance ED: well developed and NAD; Negative for unkempt, cachectic or contractures Nutritional Appearance: Negative for cachectic or obese HEENT HEENT Narrative: Right lower last molar gold plated. Tender to palpation. Mild gingival swelling and redness. No drainable abscess. No trismus. The floor of his mouth is normal and nontender. Mouth ED: Yes lips normal, Yes tongue normal, Yes salivary gland normal, No mouth trauma and No salivary gland abnormal Mouth: lips normal, tongue normal, salivary gland normal, No mouth trauma and No salivary gland abnormal Teeth and Gingiva: abnormal tooth and associated gingiva Eyes PERRL and EOMs intact bilaterally Neck no lymphadenopathy, supple and no JVD General: normal visual inspection Lymph Lymphatic: no lymphadenopathy noted Chest Wall inspection of chest normal and pa (more content not included)... Normal [facility] CNOVon 08-11-2024 CNOV Office Visit (FAMPWS ) WILBERT DELUCA ([id number]) 1955 M Date Time Provider Department 08/11/24 2:00 PM [facility] During your visit today, we recorded the following information about you: Pulse Respiration Blood pressure Weight 68/minute 16/minute 110/70 80.6 kg Daniel Douglas MD 08/11/2024 1:46 PM Signed Chief Complaint Patient presents with: 6 Month Exam HPI Wilbert Deluca is a 68 year old male who presents here today for 6 month follow up. Enjoys watching [employer] and [employer] movies. Denies any bowel, Gi, or urinary concerns. Hx of elevated glucose. Does not drink pop. Tries to watch diet. Walks for exercise. HTN: No chest pains, dizziness, or SOB. Checking BP at home occ. Taking Lisinopril 10 mg daily. Schizophrenia: [facility] who prescribes Thorazine 50 mg 1 pill TID. Feels shaky today or nervous, this occ intermittently, which he thinks is from drinking tea that has caffeine. Past medical history, appointments, medications, allergies reviewed. Previous Medical History PAST MEDICAL HISTORY Diagnosis Date Essential hypertension, benign Unspecified schizophrenia, unspecified condition Schizophrenia Previous Surgical History PAST SURGICAL HISTORY Procedure Laterality Date COLONOSCOPY 05/07/2023 repeat 10 years TONSILLECTOMY PRIMARY/SECONDARY Tonsillectomy Family History FAMILY HISTORY Problem Relation Age of Onset Coronary Artery Disease Mother Diabetes Maternal Uncle Patient Allergies ALLERGIES Allergen Reactions Haldol [Haloperidol* Prolixin [Fluphenaz* Stelazine [Trifluop* Current Medications Current Outpatient Medications on File Prior to Visit Medication Sig lisinopril (ZESTRIL) 10 mg tablet Take 1 tablet by mouth once daily. chlorproMAZINE (THORAZINE) 50 mg tablet take one three times daily No current facility-administered medications on file prior to visit. Social History Social History Tobacco Use Smoking status: Former Current packs/day: 0.00 Types: Cigarettes Quit date: 03/30/1991 Years since quittin.3 Smokeless tobacco: Never Vaping Use Vaping status: Never Used Substance Use Topics Alcohol use: No Drug use: No EXAM: BP 110/70 Pulse 68 Resp 16 Wt 80.6 kg (177 lb 11.1 oz) BMI 25.50 kg/m? General Appearance: Well appearing, alert, in no acute distress, well-hydrated, well nourished.. Lungs: Lungs clear to auscultation. No wheezing, rhonchi, rales.. Heart: RRR without murmur, gallop, or rubs. No ectopy. Health Maintenance List Abdominal Aortic Aneurysm Screening Never done DTaP,Tdap,Td Vaccine(2 - Td or Tdap) due on 03/17/2021 Influenza Vaccine(1) due on 03/05/2024 Covid-19 Vaccine( season) due on 03/05/2024 Advance Directive Discussion due on 07/05/2024 Hepatitis C Screening due on 02/06/2025 Shingrix Vaccine(1 of 2) due on 02/06/2025 Pneumococcal Vaccine: 50+(1 of 1 - PCV) due on 02/06/2025 Annual PCP Team Chronic Disease Visit due on 02/06/2025 Depression Screening due on 02/06/2025 Anxiety Screening due on 02/06/2025 BP Controlled (<130/80) due on 02/06/2025 Diabetes Screening due on 01/26/2027 Lipid Screening due on 01/26/2029 RSV Vaccine(1 - 1-dose 75+ series) due on 2029 Colorectal Cancer Screening due on 05/07/2033 Data reviewed None ASSESSMENT/PLAN: 1. Primary hypertension - ICD9: 401.9, ICD10: I10 (primary diagnosis) - Controlled - Continue current medications - Recommend home blood pressure monitoring, to bring results to next visit - Encouraged sodium restriction, DASH or Mediterranean diet - Recommend regular aerobic exercise 2. Schizophrenic disorder (HCC) - ICD9: 295.90, ICD10: F20.9 Continue current medications. [facility] with [facility] 3. Elevated glucose - ICD9: 790.29, ICD10: R73.09 Continue with diet and exercise Follow up in 6 months for Medicare Wellness exam. Labs prior. I agree with the Chief Complaint, ROS, and Past Histories independently gathered by the clinical support teacher and the remaining scribed note accurately describes my personal service to the patient. Medical Decision Making: Problems: Moderate: 2+ stable chronic illnesses Data: Unique test(s) ordered: 3+ Risk: Moderate: Drug management Medical Decision Making Level: 4 - Moderate Daniel Douglas MD The documentation for this note was completed by Zhanna Velazquez MA acting as scribe for Daniel Douglas MD. August 11, 2024 1:33 PM. Zhanna Velazquez MA Allergies As of Date: 08/11/2024 Noted Allergy Reaction HALDOL (HALOPERIDOL LACTATE) 03/30/2007 PROLIXIN (FLUPHENAZINE ENANTHATE) 03/30/2007 STELAZINE (TRIFLUOPERAZINE HCL) 03/30/2007 Date Reviewed: 08/11/2024 Reviewed by: Zhanna Velazquez MA - Fully Assessed Reason for Visit: 6 Month Exam [189] Primary Visit Diagnosis:Primary hy (more content not included)... Normal [facility] CNOVon 02-07-2024 CNOV Office Visit (FAMPWS ) WILBERT DELUCA ([id number]) 1955 M Date Time Provider Department 02/07/24 1:40 PM DANIEL DOUGLAS FAMPWS During your visit today, we recorded the following information about you: Pulse Respiration Blood pressure Weight 80/minute 18/minute 104/66 80.2 kg Daniel Douglas MD 02/07/2024 2:00 PM Signed Chief Complaint Patient presents with: F/U 6 Month HPI Wilbert Deluca is a 68 year old male who presents here today for 6 month follow up. No bowel, Gi, or urinary issues. HTN: Checking BP at home with readings varying. Pt states at times readings are lower other times it's 140/90. Reports he was going to run out of his BP medications, so he stopped taking it a couple weeks ago so he could start taking it before his appt. Requesting refill. Denies any chest pains, dizziness, or SOB. Taking Lisinopril 10 mg daily. Schizophrenia: [facility] 6 months and taking Thorazine 50 mg 1 pill TID. Tries to watch diet and walks for exercise. Hx of elevated glucose. Stopped drinking pop. HM - Anxiety/Depression completed. Declines Hep C screening. Declines Shingles, RSV and Pneumo vaccine. Past medical history, appointments, medications, allergies reviewed. Previous Medical History PAST MEDICAL HISTORY No date: Essential hypertension, benign No date: Unspecified schizophrenia, unspecified condition Comment: Schizophrenia Previous Surgical History PAST SURGICAL HISTORY 05/07/2023: COLONOSCOPY Comment: repeat 10 years No date: TONSILLECTOMY PRIMARY/SECONDARY Comment: Tonsillectomy Family History FAMILY HISTORY Problem Relation Age of Onset Coronary Artery Disease Mother Diabetes Maternal Uncle Patient Allergies ALLERGIES Allergen Reactions Haldol [Haloperidol* Prolixin [Fluphenaz* Stelazine [Trifluop* Current Medications Current Outpatient Medications on File Prior to Visit Medication Sig lisinopril (ZESTRIL) 10 mg tablet Take 1 tablet by mouth once daily. chlorproMAZINE (THORAZINE) 50 mg tablet take one three times daily No current facility-administered medications on file prior to visit. Social History Social History Tobacco Use Smoking status: Former Types: Cigarettes Quit date: 03/30/1991 Years since quittin.8 Smokeless tobacco: Never Vaping Use Vaping Use: Never used Substance Use Topics Alcohol use: No Drug use: No EXAM: BP 104/66 (BP Site: Left Arm, BP Position: Sitting, BP Cuff Size: Regular Adult) Pulse 80 Resp 18 Wt 80.2 kg (176 lb 12.9 oz) BMI 25.37 kg/m? General Appearance: Well appearing, alert, in no acute distress, well-hydrated, well nourished.. Lungs: Lungs clear to auscultation. No wheezing, rhonchi, rales.. Heart: RRR without murmur, gallop, or rubs. No ectopy. Health Maintenance List Abdominal Aortic Aneurysm Screening Never done Depression Screening Never done Anxiety Screening Never done Hepatitis C Screening Never done BP Controlled (<130/80) Never done Shingrix Vaccine(1 of 2) Never done RSV Vaccine(1 - 1-dose 60+ series) Never done Pneumococcal Vaccine: 65+(1 of 1 - PCV) Never done DTaP,Tdap,Td Vaccine(2 - Td or Tdap) due on 03/17/2021 Covid-19 Vaccine(6 - season) due on 07/29/2024 Influenza Vaccine(1) due on 03/05/2024 Annual PCP Team Chronic Disease Visit due on 07/29/2024 Diabetes Screening due on 01/26/2027 Lipid Screening due on 01/26/2029 Colorectal Cancer Screening due on 05/07/2033 Advance Directive Discussion Completed Data reviewed Appointment on 01/27/2024 Component Date Value Protein, Total 01/27/2024 7.5 Albumin 01/27/2024 4.1 Calcium, Total 01/27/2024 11.4 (H) Bilirubin, Total 01/27/2024 0.4 Alkaline Phosphatase 01/27/2024 108 AST 01/27/2024 22 ALT 01/27/2024 22 Glucose 01/27/2024 95 BUN 01/27/2024 28 (H) Creatinine 01/27/2024 1.38 (H) Sodium 01/27/2024 136 Potassium 01/27/2024 4.5 Chloride 01/27/2024 100 CO2 01/27/2024 24 Anion Gap 01/27/2024 12 Estimated Glomerular Dwight* 01/27/2024 55 (L) WBC 01/27/2024 10.82 RBC 01/27/2024 4.22 Hemoglobin 01/27/2024 12.4 (L) Hematocrit 01/27/2024 38.3 (L) MCV 01/27/2024 90.8 MCH 01/27/2024 29.4 MCHC 01/27/2024 32.4 RDW-CV 01/27/2024 12.7 Platelet Count 01/27/2024 429 (H) MPV 01/27/2024 10.5 Absolute nRBC 01/27/2024 <0.01 Hemoglobin A1C 01/27/2024 5.4 Estimated Average Glucose 01/27/2024 108 Cholesterol, Total 01/27/2024 183 Triglyceride 01/27/2024 123 HDL Cholesterol 01/27/2024 40 Non HDL Cholesterol 01/27/2024 143 (H) Fasting Time 01/27/2024 15 VLDL Cholesterol 01/27/2024 25 TC:HDL Ratio 01/27/2024 4.58 LDL Cholesterol 01/27/2024 118 (H) LDL:HDL Ratio 01/27/2024 2.95 (H) ASSESSMENT/PLAN: 1. Essential hypertension with goal blood pressure less than 130/85 - ICD9: 401.9, ICD10: I10 (primary diagnosis) - Controlled - Continue curren (more content not included)... Normal [facility] CBC panel Auto (Bld)on 01-26 Erythrocyte distribution width (RBC) [Ratio] 12.7 % Normal 11.5-15.0 [facility] Comment on above: Order Comment: Speci men Type: BLOOD SPECIMEN Ordering Facility: [facility] Address: [address] [place] [address] Performed By: #### 5 8410-2 #### [facility] CLIA [id number] [address] [place] [address] [place] Hematocrit (Bld) [Volume fraction] 38.3 % Low 39.0-51.0 [facility] Comment on above: Order Comment: Speci men Type: BLOOD SPECIMEN Ordering Facility: [facility] Address: [address] [place] [address] Performed By: #### 5 8410-2 #### [facility] CLIA [id number] [address] [place] [address] [place] Hemoglobin (Bld) [Mass/Vol] 12.4 g/dL Low 13.0-17.0 [facility] Comment on above: Order Comment: Speci men Type: BLOOD SPECIMEN Ordering Facility: [facility] Address: [address] [place] [address] Performed By: #### 5 8410-2 #### [facility] CLIA [id number] [address] [place] [address] [place] MCH (RBC) [Entitic mass] 29.4 pg Normal 26.0-34.0 [facility] Comment on above: Order Comment: Speci men Type: BLOOD SPECIMEN Ordering Facility: [facility] Address: [address] [place] [address] Performed By: #### 5 8410-2 #### [facility] CLIA [id number] [address] [place] [address] [place] MCHC (RBC) [Mass/Vol] 32.4 g/dL Normal 30.5-36.0 [facility] Comment on above: Order Comment: Speci men Type: BLOOD SPECIMEN Ordering Facility: [facility] Address: [address] [place] [address] Performed By: #### 5 8410-2 #### [facility] CLIA [id number] [address] [place] [address] [place] MCV (RBC) [Entitic vol] 90.8 fL Normal 80.0-100.0 [facility] Comment on above: Order Comment: Speci men Type: BLOOD SPECIMEN Ordering Facility: [facility] Address: [address] [place] [address] Performed By: #### 5 8410-2 #### [facility] CLIA [id number] [address] [place] [address] [place] Nucleated RBC (Bld) [#/Vol] 10*3/uL Normal <0.01 [facility] Comment on above: Order Comment: Speci men Type: BLOOD SPECIMEN Ordering Facility: [facility] Address: [address] [place] [address] Performed By: #### 5 8410-2 #### [facility] CLIA [id number] [address] [place] [address] [place] Platelet mean volume (Bld) [Entitic vol] 10.5 fL Normal 9.0-12.7 [facility] Comment on above: Order Comment: Speci men Type: BLOOD SPECIMEN Ordering Facility: [facility] Address: [address] [place] [address] Performed By: #### 5 8410-2 #### [facility] CLIA [id number] [address] [place] [address] [place] Platelets (Bld) [#/Vol] 429 10*3/uL High 150-400 [facility] Comment on above: Order Comment: Speci men Type: BLOOD SPECIMEN Ordering Facility: [facility] Address: [address] [place] [address] Performed By: #### 5 8410-2 #### [facility] CLIA [id number] [address] [place] [address] [place] RBC (Bld) [#/Vol] 4.22 10*6/uL Normal 4.20-6.00 [facility] Comment on above: Order Comment: Speci men Type: BLOOD SPECIMEN Ordering Facility: [facility] Address: [address] [place] [address] Performed By: #### 5 8410-2 #### [facility] CLIA [id number] [address] [place] [address] [place] WBC (Bld) [#/Vol] 10.82 10*3/uL Normal 3.70-11.00 [facility] Comment on above: Order Comment: Speci men Type: BLOOD SPECIMEN Ordering Facility: [facility] Address: [address] [place] [address] Performed By: #### 5 8410-2 #### [facility] CLIA [id number] [address] [place] [address] [place] Comprehensive metabolic 2000 panelon 01-27-2024 Albumin [Mass/Vol] 4.1 g/dL Normal 3.9-4.9 [facility] Comment on above: Order Comment: Speci men Type: BLOOD SPECIMEN Ordering Facility: [facility] Address: [address] [id number] Performed By: #### 2 4331-1, 67434-4 #### [facility] CLIA [id number] [address] [place], [place] [address] [place] ALP [Catalytic activity/Vol] 108 U/L Normal 38-113 [facility] Comment on above: Order Comment: Speci men Type: BLOOD SPECIMEN Ordering Facility: [facility] Address: [address] [place], [place] [address] Performed By: #### 2 4331-1, 00450-2 #### [facility] CLIA [id number] [address] [place] [address] [place] ALT [Catalytic activity/Vol] 22 U/L Normal 10-54 [facility] Comment on above: Order Comment: Speci men Type: BLOOD SPECIMEN Ordering Facility: [facility] Address: [address] [place] [address] Performed By: #### 2 4331-1, 32166-6 #### [facility] CLIA [id number] [address] [place] [address] [place] Anion gap [Moles/Vol] 12 mmol/L Normal 8-15 [facility] Comment on above: Order Comment: Speci men Type: BLOOD SPECIMEN Ordering Facility: [facility] Address: [address] [place], [place] [address] Performed By: #### 2 4331-1, 75119-1 #### [facility] CLIA [id number] [address] [place], [place] [address] [place] AST [Catalytic activity/Vol] 22 U/L Normal 14-40 [facility] Comment on above: Order Comment: Speci men Type: BLOOD SPECIMEN Ordering Facility: [facility] Address: [address] [place], [place] [address] Performed By: #### 2 4331-1, 42645-9 #### [facility] CLIA [id number] [address] [place] [address] [place] Bilirubin [Mass/Vol] 0.4 mg/dL Normal 0.2-1.3 [facility] Comment on above: Order Comment: Speci men Type: BLOOD SPECIMEN Ordering Facility: [facility] Address: [address] [place] [address] Performed By: #### 2 4331-1, 19534-0 #### [facility] CLIA [id number] [address] [place] [address] [place] Calcium [Mass/Vol] 11.4 mg/dL High 8.5-10.2 [facility] Comment on above: Order Comment: Speci men Type: BLOOD SPECIMEN Ordering Facility: [facility] Address: [address] [place] [address] Performed By: #### 2 4331-1, 81420-1 #### [facility] CLIA [id number] [address] [place] [address] [place] Chloride [Moles/Vol] 100 mmol/L Normal 98-107 [facility] Comment on above: Order Comment: Speci men Type: BLOOD SPECIMEN Ordering Facility: [facility] Address: [address] [place] [address] Performed By: #### 2 4331-1, 19995-8 #### [facility] CLIA [id number] [address] [place] [address] [place] CO2 [Moles/Vol] 24 mmol/L Normal 22-30 [facility] Comment on above: Order Comment: Speci men Type: BLOOD SPECIMEN Ordering Facility: [facility] Address: [address] [place] [address] Performed By: #### 2 4331-1, 77399-4 #### [facility] CLIA [id number] [address] [place] [address] [place] Creatinine [Mass/Vol] 1.38 mg/dL High 0.73-1.22 [facility] Comment on above: Order Comment: Caitlin reardon Type: BLOOD SPECIMEN Ordering Facility: [facility] Address: [address] [place] [address] Performed By: #### 2 4331-1, 29521-2 #### [facility] CLIA [id number] [address] [place] [address] [place] Creatinine and Glomerular filtration rate.predicted panel (S/P/Bld) 55 mL/min/1.73m??? Low >=60 [facility] Comment on above: Order Comment: Caitlin reardon Type: BLOOD SPECIMEN Ordering Facility: [facility] Address: [address] [place] [address] Result Comment: Sandra mated Glomerular Filtration Rate (eGFR) is calculated using the 2020 CKD-EPI creatinine equation. This equation utilizes serum creatinine, sex, and age as parameters. The creatinine assay has traceable calibration to isotope dilution-mass spectrometry. Refer to KDIGO guidelines for clinical interpretation. In patients with unstable renal function, e.g. those with acute kidney injury, the eGFR may not accurately reflect actual GFR. Performed By: #### 2 4331-1, 70104-6 #### [facility] CLIA [id number] [address] [place] [address] [place] Glucose [Mass/Vol] 95 mg/dL Normal 74-99 [facility] Comment on above: Order Comment: Caitlin reardon Type: BLOOD SPECIMEN Ordering Facility: [facility] Address: [address] [place] [address] Result Comment: The [place] Diabetes Association (ADA) provides guidance for cutoff values for fasting glucose and random glucose. The ADA defines fasting as no caloric intake for at least 8 hours. Fasting plasma glucose results between 100 to 125 mg/dL indicate increased risk for diabetes (prediabetes). Fasting plasma glucose results greater than or equal to 126 mg/dL meet the criteria for diagnosis of diabetes. In the absence of unequivocal hyperglycemia, results should be confirmed by repeat testing. In a patient with classic symptoms of hyperglycemia or hyperglycemic crisis, random plasma glucose results greater than or equal to 200 mg/dL meet the criteria for diagnosis of diabetes. Reference: Standards of Medical Care in Diabetes 2016, [place] [employer] Association. Diabetes Care. 2016.39(Suppl 1). Performed By: #### 2 4331-1, 21967-8 #### [facility] CLIA [id number] [address] [place] [address] [place] Potassium [Moles/Vol] 4.5 mmol/L Normal 3.7-5.1 [facility] Comment on above: Order Comment: Speci men Type: BLOOD SPECIMEN Ordering Facility: [facility] Address: [address] [place] [address] Performed By: #### 2 4331-1, 25318-2 #### [facility] CLIA [id number] [address] [place] [address] [place] Protein [Mass/Vol] 7.5 g/dL Normal 6.3-8.0 [facility] Comment on above: Order Comment: Speci men Type: BLOOD SPECIMEN Ordering Facility: [facility] Address: [address] [place] [address] Performed By: #### 2 4331-1, 52945-0 #### [facility] CLIA [id number] [address] [place] [address] [place] Sodium [Moles/Vol] 136 mmol/L Normal 136-144 [facility] Comment on above: Order Comment: Speci men Type: BLOOD SPECIMEN Ordering Facility: [facility] Address: [address] [place] [address] Performed By: #### 2 4331-1, 18020-0 #### [facility] CLIA [id number] [address] [place] [address] [place] Urea nitrogen [Mass/Vol] 28 mg/dL High 9-24 [facility] Comment on above: Order Comment: Speci men Type: BLOOD SPECIMEN Ordering Facility: [facility] Address: [address] [place], [place] [address] Performed By: #### 2 433-1, 19660-7 #### [facility] CLIA [id number] [address] [place] [address] [place] HbA1c (Bld)on 01-27-2024 Average glucose Estimated from glycated hemoglobin (Bld) [Mass/Vol] 108 mg/dL Normal [facility] Comment on above: Order Comment: aCitlin reardon Type: BLOOD SPECIMEN Ordering Facility: [facility] Address: [address] [place] [address] Result Comment: eAG: (Estimated average glucose) is a calculated value from HgbA1c and is account services representative of the average blood glucose level in the last 2-3 month period. Performed By: #### 5 5454-3 #### [facility] CLIA [id number] [address] [place] [address] STATES [facility] HbA1c (Bld) [Mass fraction] 5.4 % Normal 4.3-5.6 [facility] Comment on above: Order Comment: Caitlin reardon Type: BLOOD SPECIMEN Ordering Facility: [facility] Address: [address] [place] [address] Result Comment: [place] Diabetes Association guidelines indicate that patients with HgbA1c in the range 5.7-6.4% are at increased risk for development of diabetes, and intervention by lifestyle modification may be beneficial. HgbA1c greater or equal to 6.5% is considered diagnostic of diabetes. Performed By: #### 5 5454-3 #### [facility] CLIA [id number] [address] [place] [address] [place] Lipid 1996 panelon 4 Cholesterol [Mass/Vol] 183 mg/dL Normal <200 [facility] Comment on above: Order Comment: Caitlin reardon Type: BLOOD SPECIMEN Ordering Facility: [facility] Address: [address] [place] [address] Result Comment: <200 mg/dL, Desirable 200-239 mg/dL, Borderline high >239 mg/dL, High Performed By: #### 2 433-, 84616-6 #### [facility] CLIA [id number] [address] OF [facility] Cholesterol in HDL [Mass/Vol] 40 mg/dL Normal >39 [facility] Comment on above: Order Comment: Caitlin reardon Type: BLOOD SPECIMEN Ordering Facility: [facility] Address: [address] [place] [address] Result Comment: 40-5 9 mg/dL, Acceptable >59 mg/dL, High: Negative risk factor for coronary heart disease <40 mg/dL, Low: Positive risk factor for coronary heart disease Performed By: #### 2 4331-1, 24252-2 #### [facility] CLIA [id number] [address] [place] [address] [place] Cholesterol in LDL [Mass/Vol] 118 mg/dL High <100 [facility] Comment on above: Order Comment: Caitlin reardon Type: BLOOD SPECIMEN Ordering Facility: [facility] Address: [address] [place] [address] Result Comment: <100 mg/dL, Optimal 100-129 mg/dL, Near optimal/above optimal 130-159 mg/dL, Borderline high 160-189 mg/dL, High >189 mg/dL, Very high Secondary prevention optimal LDL Cholesterol levels are recommended to be < 70 mg/dL Performed By: #### 2 4331-1, 07454-5 #### [facility] CLIA [id number] [address] [place] [address] [place] Cholesterol in LDL/Cholesterol in HDL [Mass ratio] 2.95 {ratio} High <2.54 [facility] Comment on above: Order Comment: Caitlin reardon Type: BLOOD SPECIMEN Ordering Facility: [facility] Address: [address] [place] [address] Result Comment: Last bee: 1. National Cholesterol Education Program ATP III Guideline At-A-Glance Quick Desk Reference: National Heart, Lung, and Blood [place]. National Institutes of Health. 2001: NIH Publication No. 01-3305. 2. An International Atherosclerosis Society position paper: global recommendations for the management of dyslipidemia: executive summary, Atherosclerosis. 2014: 232(2):410-413. Performed By: #### 2 4331-1, 17166-7 #### [facility] CLIA [id number] [address] [place] [address] [place] Cholesterol in VLDL [Mass/Vol] 25 mg/dL Normal <30 [facility] Comment on above: Order Comment: Speci men Type: BLOOD SPECIMEN Ordering Facility: [facility] Address: [address] [place] [address] Performed By: #### 2 4331-1, #### [facility] CLIA [id number] [address] [place] [address] [place] Cholesterol non HDL [Mass/Vol] 143 mg/dL High <130 [facility] Comment on above: Order Comment: Speci men Type: BLOOD SPECIMEN Ordering Facility: [facility] Address: [address] [place] [address] Result Comment: <130 mg/dL, Optimal 130-159 mg/dL, Near optimal/above optimal 160-189 mg/dL, Borderline high 190-219 mg/dL, High >219 mg/dL, Very high Secondary prevention optimal non HDL Cholesterol levels are recommended to be <100 mg/dL Performed By: #### 2 4331-1, #### [facility] CLIA [id number] [address] [place] [address] [place] Cholesterol.total /Cholesterol in HDL [Mass ratio] 4.58 {ratio} Normal <5.10 [facility] Comment on above: Order Comment: Speci men Type: BLOOD SPECIMEN Ordering Facility: [facility] Address: [address] [place], [place] [address] Performed By: #### 2 4331-1, 05095-5 #### [facility] CLIA [id number] [address] [place] [address] [place] FASTING TIME 15 hrs Normal [facility] Comment on above: Order Comment: Speci men Type: BLOOD SPECIMEN Ordering Facility: [facility] Address: [address] [place] [address] Performed By: #### 2 4331-1, 31654-9 #### [facility] CLIA [id number] [address] [place] [address] [place] Triglyceride [Mass/Vol] 123 mg/dL Normal <150 [facility] Comment on above: Order Comment: Speci men Type: BLOOD SPECIMEN Ordering Facility: [facility] Address: [address] [place] [address] Result Comment: <150 mg/dL, Normal 150-199 mg/dL, Borderline high 200-499 mg/dL, High >499 mg/dL, Very high Performed By: #### 2 4331-1, 71397-6 #### [facility] CLIA [id number] [address] [place] [address] [place] 25(OH)D3 [facility] 2023 25-hydroxyvitamin D3 [Mass/Vol] 24.7 ng/mL Low 31.0-80.0 [facility] Comment on above: Order Comment: Speci men Type: BLOOD SPECIMEN Ordering Facility: [facility] Address: [address] [place] [address] Result Comment: Clas sification of 25 [place] Vitamin D status: Deficiency/Insufficiency: < or = 30 ng/ml. Sufficiency/Optimal Levels: 31-80 ng/mL Toxicity: > 100 ng/mL. Test performed by chemiluminescent immunoassay. Performed By: #### 1 989-3 #### [facility] CLIA [id number] [address] [place] [address] [place] CBC W Auto Differential pane l (Bld)on 10-21-2023 Basophils (Bld) [#/Vol] 0.06 10*3/uL Normal <0.11 [facility] Comment on above: Order Comment: Speci men Type: BLOOD SPECIMEN Ordering Facility: [facility] Address: [address] [place] [address] Performed By: #### 2 4331-1, 2841-3, #### [facility] CLIA [id number] [address] [place] [address] [place] Basophils/100 WBC (Bld) 0.8 % Normal [facility] Comment on above: Order Comment: Speci men Type: BLOOD SPECIMEN Ordering Facility: [facility] Address: [address] [place] [address] Performed By: #### 2 4331-1, 2841-3, #### [facility] CLIA [id number] [address] [place] [address] [place] Differential cell count method Nom (Bld) Auto Normal [facility] Comment on above: Order Comment: Speci men Type: BLOOD SPECIMEN Ordering Facility: [facility] Address: [address] [place] [address] Performed By: #### 2 4331-1, 2841-3, #### [facility] CLIA [id number] [address] [place] [address] [place] Eosinophils (Bld) [#/Vol] 0.38 10*3/uL Normal <0.46 [facility] Comment on above: Order Comment: Speci men Type: BLOOD SPECIMEN Ordering Facility: [facility] Address: [address] [place] [address] Performed By: #### 2 4331-1, 2841-3, #### [facility] CLIA [id number] [address] [place], [place] [address] [place] Eosinophils/100 WBC (Bld) 5.2 % Normal [facility] Comment on above: Order Comment: Speci men Type: BLOOD SPECIMEN Ordering Facility: [facility] Address: [address] [place] [address] Performed By: #### 2 4331-1, 2841-3, 74283-4 #### [facility] CLIA [id number] [address] [place] [address] [place] Erythrocyte distribution width (RBC) [Ratio] 13.0 % Normal 11.5-15.0 [facility] Comment on above: Order Comment: Speci men Type: BLOOD SPECIMEN Ordering Facility: [facility] Address: [address] [place] [address] Performed By: #### 2 4331-1, 284-3, 51984-6 #### [facility] CLIA [id number] [address] [place] [address] [place] Hematocrit (Bld) [Volume fraction] 40.0 % Normal 39.0-51.0 [facility] Comment on above: Order Comment: Speci men Type: BLOOD SPECIMEN Ordering Facility: [facility] Address: [address] [place] [address] Performed By: #### 2 4331-1, 284-3, 66340-4 #### [facility] CLIA [id number] [address] [place] [address] [place] Hemoglobin (Bld) [Mass/Vol] 13.2 g/dL Normal 13.0-17.0 [facility] Comment on above: Order Comment: Speci men Type: BLOOD SPECIMEN Ordering Facility: [facility] Address: [address] [place] [address] Performed By: #### 2 4331-1, 284-3, 42842-6 #### [facility] CLIA [id number] [address] [place], [place] [address] [place] Immature granulocytes (Bld) [#/Vol] 10*3/uL Normal <0.10 [facility] Comment on above: Order Comment: Speci men Type: BLOOD SPECIMEN Ordering Facility: [facility] Address: [address] [place] [address] Performed By: #### 2 4331-1, 2842-3, 29715-8 #### [facility] CLIA [id number] [address] [place] [address] [place] Immature granulocytes/100 WBC (Bld) 0.1 % Normal [facility] Comment on above: Order Comment: Speci men Type: BLOOD SPECIMEN Ordering Facility: [facility] Address: [address] [place] [address] Performed By: #### 2 4331-1, 284-3, 87501-1 #### [facility] CLIA [id number] [address] [place] [address] [place] Lymphocytes (Bld) [#/Vol] 1.81 10*3/uL Normal 1.00-4.00 [facility] Comment on above: Order Comment: Speci men Type: BLOOD SPECIMEN Ordering Facility: [facility] Address: [address] [place] [address] Performed By: #### 2 4331-1, 2841-3, #### [facility] CLIA [id number] [address] [place] [address] [place] Lymphocytes/100 WBC (Bld) 24.9 % Normal [facility] Comment on above: Order Comment: Speci men Type: BLOOD SPECIMEN Ordering Facility: [facility] Address: [address] [place] [address] Performed By: #### 2 4331-1, 284-3, #### [facility] CLIA [id number] [address] [place], [place] [address] [place] MCH (RBC) [Entitic mass] 29.9 pg Normal 26.0-34.0 [facility] Comment on above: Order Comment: Speci men Type: BLOOD SPECIMEN Ordering Facility: [facility] Address: [address] [place] [address] Performed By: #### 2 4331-1, 284-3, 82711-4 #### [facility] CLIA [id number] [address] [place] [address] [place] MCHC (RBC) [Mass/Vol] 33.0 g/dL Normal 30.5-36.0 [facility] Comment on above: Order Comment: Speci men Type: BLOOD SPECIMEN Ordering Facility: [facility] Address: [address] [place] [address] Performed By: #### 2 4331-1, 284-3, 12147-9 #### [facility] CLIA [id number] [address] [place] [address] [place] MCV (RBC) [Entitic vol] 90.7 fL Normal 80.0-100.0 [facility] Comment on above: Order Comment: Speci men Type: BLOOD SPECIMEN Ordering Facility: [facility] Address: [address] [place] [address] Performed By: #### 2 4331-1, 284-3, 50601-7 #### [facility] CLIA [id number] [address] [place] [address] [place] Monocytes (Bld) [#/Vol] 0.45 10*3/uL Normal <0.87 [facility] Comment on above: Order Comment: Speci men Type: BLOOD SPECIMEN Ordering Facility: [facility] Address: [address] [place] [address] Performed By: #### 2 4331-1, 284-3, 15266-6 #### [facility] CLIA [id number] [address] [place] [address] [place] Monocytes/100 WBC (Bld) 6.2 % Normal [facility] Comment on above: Order Comment: Speci men Type: BLOOD SPECIMEN Ordering Facility: [facility] Address: [address] [place] [address] Performed By: #### 2 4331-1, 2842-3, 80592-0 #### [facility] CLIA [id number] [address] [place] [address] [place] Neutrophils (Bld) [#/Vol] 4.57 10*3/uL Normal 1.45-7.50 [facility] Comment on above: Order Comment: Speci men Type: BLOOD SPECIMEN Ordering Facility: [facility] Address: [address] [place] [address] Performed By: #### 2 4331-1, 2842-3, 34969-4 #### [facility] CLIA [id number] [address] [place] [address] [place] Neutrophils/100 WBC (Bld) 62.8 % Normal [facility] Comment on above: Order Comment: Speci men Type: BLOOD SPECIMEN Ordering Facility: [facility] Address: [address] [place] [address] Performed By: #### 2 4331-1, 2842-3, 84603-1 #### [facility] CLIA [id number] [address] [place] [address] [place] Nucleated RBC (Bld) [#/Vol] 10*3/uL Normal <0.01 [facility] Comment on above: Order Comment: Speci men Type: BLOOD SPECIMEN Ordering Facility: [facility] Address: [address] [place] [address] Performed By: #### 2 4331-1, 284-3, 75161-5 #### [facility] CLIA [id number] [address] [place] [address] [place] Nucleated RBC/100 WBC (Bld) [Ratio] 0.0 /100 WBC Normal [facility] Comment on above: Order Comment: Speci men Type: BLOOD SPECIMEN Ordering Facility: [facility] Address: [address] [place] [address] Performed By: #### 2 4331-1, 284-3, 43788-0 #### [facility] CLIA [id number] [address] [place] [address] [place] Platelet mean volume (Bld) [Entitic vol] 10.9 fL Normal 9.0-12.7 [facility] Comment on above: Order Comment: Speci men Type: BLOOD SPECIMEN Ordering Facility: [facility] Address: [address] [place] [address] Performed By: #### 2 4331-1, 284-3, 87998-5 #### [facility] CLIA [id number] [address] [place] [address] [place] Platelets (Bld) [#/Vol] 260 10*3/uL Normal 150-400 [facility] Comment on above: Order Comment: Speci men Type: BLOOD SPECIMEN Ordering Facility: [facility] Address: [address] [place] [address] Performed By: #### 2 4331-1, 284-3, 66845-0 #### [facility] CLIA [id number] [address] [place] [address] [place] RBC (Bld) [#/Vol] 4.41 10*6/uL Normal 4.20-6.00 [facility] Comment on above: Order Comment: Speci men Type: BLOOD SPECIMEN Ordering Facility: [facility] Address: [address] [place], [place] [address] Performed By: #### 2 4331-1, 284-3, 06698-4 #### [facility] CLIA [id number] [address] [place] [address] [place] WBC (Bld) [#/Vol] 7.28 10*3/uL Normal 3.70-11.00 [facility] Comment on above: Order Comment: Speci men Type: BLOOD SPECIMEN Ordering Facility: [facility] Address: [address] [place] [address] Performed By: #### 2 4331-1, 284-3, 24977-6 #### [facility] CLIA [id number] [address] [address] [place] Comprehensive metabolic 2000 panelon 10-21-2023 Albumin [Mass/Vol] 3.8 g/dL Low 3.9-4.9 [facility] Comment on above: Order Comment: Speci men Type: BLOOD SPECIMEN Ordering Facility: [facility] Address: [address] [place], [place] [address] Performed By: #### 2 4331-1, 2841-3, #### [facility] CLIA [id number] [address] [place], [place] [address] [place] ALP [Catalytic activity/Vol] 87 U/L Normal 38-113 [facility] Comment on above: Order Comment: Speci men Type: BLOOD SPECIMEN Ordering Facility: [facility] Address: [address] [place], [place] [address] Performed By: #### 2 4331-1, 2841-3, #### [facility] CLIA [id number] [address] [place] [id number] [place] ALT [Catalytic activity/Vol] 18 U/L Normal 10-54 [facility] Comment on above: Order Comment: Speci men Type: BLOOD SPECIMEN Ordering Facility: [facility] Address: [address] [place] [address] Performed By: #### 2 4331-1, 284-3, #### [facility] CLIA [id number] [address] [address] [place] Anion gap [Moles/Vol] 11 mmol/L Normal 9-18 [facility] Comment on above: Order Comment: Speci men Type: BLOOD SPECIMEN Ordering Facility: [facility] Address: [address] [place] [address] Performed By: #### 2 4331-1, 2841-3, #### [facility] CLIA [id number] [address] [place] [address] [place] AST [Catalytic activity/Vol] 23 U/L Normal 14-40 [facility] Comment on above: Order Comment: Speci men Type: BLOOD SPECIMEN Ordering Facility: [facility] Address: [address] [place], [place] [address] Performed By: #### 2 4331-1, 3, #### [facility] CLIA [id number] [address] [place], [place] [address] [place] Bilirubin [Mass/Vol] 0.5 mg/dL Normal 0.2-1.3 [facility] Comment on above: Order Comment: Speci men Type: BLOOD SPECIMEN Ordering Facility: [facility] Address: [address] [place] [address] Performed By: #### 2 4331-1, 3, #### [facility] CLIA [id number] [address] [place], [place] [address] [place] Calcium [Mass/Vol] 10.7 mg/dL High 8.5-10.2 [facility] Comment on above: Order Comment: Speci men Type: BLOOD SPECIMEN Ordering Facility: [facility] Address: [address] [place] [address] Performed By: #### 2 4331-1, 3, #### [facility] CLIA [id number] [address] [place] [address] [place] Chloride [Moles/Vol] 103 mmol/L Normal 97-105 [facility] Comment on above: Order Comment: Speci men Type: BLOOD SPECIMEN Ordering Facility: [facility] Address: [address] [place], [place] [address] Performed By: #### 2 4331-1, 284-3, #### [facility] CLIA [id number] [address] [place] [address] [place] CO2 [Moles/Vol] 26 mmol/L Normal 22-30 [facility] Comment on above: Order Comment: Speci men Type: BLOOD SPECIMEN Ordering Facility: [facility] Address: [address] [place], [place] [address] Performed By: #### 2 4331-1, 284-3, #### [facility] CLIA [id number] [address] [place], [place] [address] [place] Creatinine [Mass/Vol] 1.22 mg/dL Normal 0.73-1.22 [facility] Comment on above: Order Comment: Speci men Type: BLOOD SPECIMEN Ordering Facility: [facility] Address: [address] [place], [place] [address] Performed By: #### 2 4331-1, 2841-3, #### [facility] CLIA [id number] [address] [place], [place] [address] [place] Creatinine and Glomerular filtration rate.predicted panel (S/P/Bld) 65 mL/min/1.73m??? Normal >=60 [facility] Comment on above: Order Comment: Speci men Type: BLOOD SPECIMEN Ordering Facility: [facility] Address: [address] [place], [place] [address] Result Comment: Sandra mated Glomerular Filtration Rate (eGFR) is calculated using the 2020 CKD-EPI creatinine equation. This equation utilizes serum creatinine, sex, and age as parameters. The creatinine assay has traceable calibration to isotope dilution-mass spectrometry. Refer to KDIGO guidelines for clinical interpretation. In patients with unstable renal function, e.g. those with acute kidney injury, the eGFR may not accurately reflect actual GFR. Performed By: #### 2 4331-1, 2841-3, #### [facility] CLIA [id number] [address] [address] [place] Glucose [Mass/Vol] 97 mg/dL Normal 74-99 [facility] Comment on above: Order Comment: Caitlin reardon Type: BLOOD SPECIMEN Ordering Facility: [facility] Address: [address] [place] [address] Result Comment: The [place] Diabetes Association (ADA) provides guidance for cutoff values for fasting glucose and random glucose. The ADA defines fasting as no caloric intake for at least 8 hours. Fasting plasma glucose results between 100 to 125 mg/dL indicate increased risk for diabetes (prediabetes). Fasting plasma glucose results greater than or equal to 126 mg/dL meet the criteria for diagnosis of diabetes. In the absence of unequivocal hyperglycemia, results should be confirmed by repeat testing. In a patient with classic symptoms of hyperglycemia or hyperglycemic crisis, random plasma glucose results greater than or equal to 200 mg/dL meet the criteria for diagnosis of diabetes. Reference: Standards of Medical Care in Diabetes 2016, [place] [employer]. Diabetes Care. 2016.39(Suppl 1). Performed By: #### 2 4331-1, 2841-3, #### [facility] CLIA [id number] [address] [place] [address] [place] Potassium [Moles/Vol] 3.9 mmol/L Normal 3.7-5.1 [facility] Comment on above: Order Comment: Caitlin reardon Type: BLOOD SPECIMEN Ordering Facility: [facility] Address: [address] [place], [place] [address] Performed By: #### 2 4331-1, 2841-3, #### [facility] CLIA [id number] [address] [address] [place] Protein [Mass/Vol] 6.9 g/dL Normal 6.3-8.0 [facility] Comment on above: Order Comment: Speci men Type: BLOOD SPECIMEN Ordering Facility: [facility] Address: [address] [place] [address] Performed By: #### 2 4331-1, 284-3, #### [facility] CLIA [id number] [address] [address] [place] Sodium [Moles/Vol] 140 mmol/L Normal 136-144 [facility] Comment on above: Order Comment: Speci men Type: BLOOD SPECIMEN Ordering Facility: [facility] Address: [address] [place] [address] Performed By: #### 2 4331-1, 284-3, #### [facility] CLIA [id number] [address] [place] [address] [place] Urea nitrogen [Mass/Vol] 15 mg/dL Normal 9-24 [facility] Comment on above: Order Comment: Speci men Type: BLOOD SPECIMEN Ordering Facility: [facility] Address: [address] [place] [address] Performed By: #### 2 4331-1, 2841-3, #### [facility] CLIA [id number] [address] [place], [place] [address] [place] HbA1c (Bld)on 10-21-2023 Average glucose Estimated from glycated hemoglobin (Bld) [Mass/Vol] 105 mg/dL Normal [facility] Comment on above: Order Comment: Speci men Type: BLOOD SPECIMEN Ordering Facility: [facility] Address: [address] [place] [address] Result Comment: eAG: (Estimated average glucose) is a calculated value from HgbA1c and is account services representative of the average blood glucose level in the last 2-3 month period. Performed By: #### 5 5454-3 #### [facility] CLIA [id number] [address] [place] [address] [place] HbA1c (Bld) [Mass fraction] 5.3 % Normal 4.3-5.6 [facility] Comment on above: Order Comment: Caitlin reardon Type: BLOOD SPECIMEN Ordering Facility: [facility] Address: [address] [place] [address] Result Comment: Amer [place] Diabetes Association guidelines indicate that patients with HgbA1c in the range 5.7-6.4% are at increased risk for development of diabetes, and intervention by lifestyle modification may be beneficial. HgbA1c greater or equal to 6.5% is considered diagnostic of diabetes. Performed By: #### 5 5454-3 #### [facility] CLIA [id number] [address] [place] [address] [place] Lipid 1996 panelon 4 Cholesterol [Mass/Vol] 174 mg/dL Normal <200 [facility] Comment on above: Order Comment: Caitlin reardon Type: BLOOD SPECIMEN Ordering Facility: [facility] Address: [address] [place] [address] Result Comment: <200 mg/dL, Desirable 200-239 mg/dL, Borderline high >239 mg/dL, High Performed By: #### 2 4331-1, 2842-3, 59142-5 #### [facility] CLIA [id number] [facility] [place] [address] [place] Cholesterol in HDL [Mass/Vol] 52 mg/dL Normal >39 [facility] Comment on above: Order Comment: Caitlin reardon Type: BLOOD SPECIMEN Ordering Facility: [facility] Address: [address] [place] [address] Result Comment: 40-5 9 mg/dL, Acceptable >59 mg/dL, High: Negative risk factor for coronary heart disease <40 mg/dL, Low: Positive risk factor for coronary heart disease Performed By: #### 2 4331-1, 2842-3, 89127-6 #### [facility] CLIA [id number] [address] [place] [address] [place] Cholesterol in LDL [Mass/Vol] 101 mg/dL High <100 [facility] Comment on above: Order Comment: Speci men Type: BLOOD SPECIMEN Ordering Facility: [facility] Address: [address] [place] [address] Result Comment: <100 mg/dL, Optimal 100-129 mg/dL, Near optimal/above optimal 130-159 mg/dL, Borderline high 160-189 mg/dL, High >189 mg/dL, Very high Secondary prevention optimal LDL Cholesterol levels are recommended to be < 70 mg/dL Performed By: #### 2 4331-1, 2842-3, 27322-4 #### [facility] CLIA [id number] [facility] [place] [address] [place] Cholesterol in LDL/Cholesterol in HDL [Mass ratio] 1.94 {ratio} Normal <2.54 [facility] Comment on above: Order Comment: Speci men Type: BLOOD SPECIMEN Ordering Facility: [facility] Address: [address] [place] [address] Result Comment: Refe rence: 1. National Cholesterol Education Program ATP III Guideline At-A-Glance Quick Desk Reference: National Heart, Lung, and Blood [place]. National Institutes of Health. 2001: NIH Publication No. 01-3305. 2. An International Atherosclerosis Society position paper: global recommendations for the management of dyslipidemia: executive summary, Atherosclerosis. 2014: 232(2):410-413. Performed By: #### 2 4331-1, 2842-3, 47922-5 #### [facility] CLIA [id number] [address] [place] [address] [place] Cholesterol in VLDL [Mass/Vol] 21 mg/dL Normal <30 [facility] Comment on above: Order Comment: Chantei men Type: BLOOD SPECIMEN Ordering Facility: [facility] Address: [address] [place] [address] Performed By: #### 2 4331-1, 2842-3, 23500-7 #### [facility] CLIA [id number] [address] [address] [place] Cholesterol non HDL [Mass/Vol] 122 mg/dL Normal <130 [facility] Comment on above: Order Comment: Speci men Type: BLOOD SPECIMEN Ordering Facility: [facility] Address: [address] [place] [address] Result Comment: <130 mg/dL, Optimal 130-159 mg/dL, Near optimal/above optimal 160-189 mg/dL, Borderline high 190-219 mg/dL, High >219 mg/dL, Very high Secondary prevention optimal non HDL Cholesterol levels are recommended to be <100 mg/dL Performed By: #### 2 4331-1, 2841-3, #### [facility] CLIA [id number] [address] [place] [address] [place] Cholesterol.total /Cholesterol in HDL [Mass ratio] 3.35 {ratio} Normal <5.10 [facility] Comment on above: Order Comment: Speci men Type: BLOOD SPECIMEN Ordering Facility: [facility] Address: [address] [place] [address] Performed By: #### 2 4331-1, 2841-3, #### [facility] CLIA [id number] [address] [place] [address] [place] FASTING TIME 14 hrs Normal [facility] Comment on above: Order Comment: Speci men Type: BLOOD SPECIMEN Ordering Facility: [facility] Address: [address] [place] [address] Performed By: #### 2 4331-1, 2841-3, #### [facility] CLIA [id number] [address] [place], [place] [address] [place] Triglyceride [Mass/Vol] 106 mg/dL Normal <150 [facility] Comment on above: Order Comment: Speci men Type: BLOOD SPECIMEN [facility] Address: [address] [place], [place] [address] Result Comment: <150 mg/dL, Normal 150-199 mg/dL, Borderline high 200-499 mg/dL, High >499 mg/dL, Very high Performed By: #### 2 4331-1, 2842-3, 61648-9 #### [facility] CLIA [id number] [address] [place], [place] [address] [place] Prolactin SerPl-mCncon 10-20 Prolactin [Mass/Vol] 10.8 ng/mL Normal 4.0-15.2 [facility] Comment on above: Order Comment: Speci men Type: BLOOD SPECIMEN Ordering Facility: [facility] Address: [address] [place], [place] [address] Result Comment: Prol actin test is performed using the [employer] Electrochemiluminescence Immunoassay method. Results obtained with different methods or kits cannot be used interchangeably. Performed By: #### 2 4331-1, 2842-3, 49725-8 #### [facility] CLIA [id number] [address] [place] [address] [place] COLONOSCOPY DIAGNOSTICon [facility] XR Knee - right 4 Viewson IMPRESSION: Osteoarthritis as described. Marker Maker: HAYDEN Transcribe Date/Time: Nov 10 2021 3:04P Dictated by : SAJAN LUIS MD This examination was interpreted and the report reviewed and electronically signed by: SAJAN LUIS MD on Nov 10 2021 3:10PM EST [facility]_DO_NOT_U SE_DIVISION OF RADIOLOGY * * *Final Report* * * DATE OF EXAM: Nov 10 2021 3:02PM WOX 5203 - XR KNEE 4V AP/PA BOTH+LAT/ANNA RT / PROCEDURE REASON: Acute pain of right knee * * * * Physician Interpretation * * * * CLINICAL INDICATION: Knee pain TECHNIQUE: AP/PA/merchant radiographs of both knees and lateral radiograph of the right knee COMPARISON: None FINDINGS: Right knee: No suprapatellar joint effusion. No acute fracture or dislocation. Moderate to severe medial compartmental joint space narrowing. Moderate patellofemoral compartmental joint space narrowing. Miniscule tricompartmental osteophyte production. Left knee: No acute fracture or dislocation. Moderate medial compartmental joint space narrowing. Moderate patellofemoral compartmental joint space narrowing. [facility]_DO_NOT_U SE_DIVISION OF RADIOLOGY [facility] * * *Final Report* * * DATE OF EXAM: Nov 10 2021 3:02PM WOX 5203 - XR KNEE 4V AP/PA BOTH+LAT/ANNA RT / PROCEDURE REASON: Acute pain of right knee * * * * Physician Interpretation * * * * CLINICAL INDICATION: Knee pain TECHNIQUE: AP/PA/merchant radiographs of both knees and lateral radiograph of the right knee COMPARISON: None FINDINGS: Right knee: No suprapatellar joint effusion. No acute fracture or dislocation. Moderate to severe medial compartmental joint space narrowing. Moderate patellofemoral compartmental joint space narrowing. Miniscule tricompartmental osteophyte production. Left knee: No acute fracture or dislocation. Moderate medial compartmental joint space narrowing. Moderate patellofemoral compartmental joint space narrowing. IMPRESSION IMPRESSION: Osteoarthritis as described. Marker Maker: PSCEmmanuel Transcribe Date/Time: Nov 10 2021 3:04P Dictated by : SAJAN LUIS MD This examination was interpreted and the report reviewed and electronically signed by: SAJAN LUIS MD on Nov 10 2021 3:10PM EST [facility] Radiology Study observation (narrative) [facility] XR Knee - right 4 ViewsOrder ed By: [facility] Provider on 11-10-2021 [facility] Vital Signs Date Time Vital Sign Value Performing Clinician Facility 11-28-2024 14:01-0400 Body temperature 97.8 [degF] Dr. Daniel Douglas MD Work Phone: [facility] 11-28-2024 14:01-0400 Diastolic blood pressure 79 mm[Hg] Dr. Daniel Douglas MD Work Phone: [facility] 11-28-2024 14:01-0400 Heart rate 115 /min Dr. Daniel Douglas MD Work Phone: 1(416)[phone] [place] [address] 11-28-2024 14:01-0400 Respiratory rate 16 /min Dr. Daniel Douglas MD Work Phone: 9(360)[phone] [place] [address] 11-28-2024 14:01-0400 SaO2% (BldA) [Mass fraction] 98 % Dr. Daniel Douglas MD Work Phone: 0(735)[phone] [place] [address] 11-28-2024 14:01-0400 Systolic blood pressure 131 mm[Hg] Dr. Daniel Douglas MD Work Phone: 2(156)[phone] [place] [address] 11-28-2024 12:53-0400 Body height 177.[address] Daniel Douglas MD Work Phone: 8(891)349-787798 [place] [address] 11-28-2024 12:53-0400 Body mass index (BMI) [Ratio] 24.7 kg/m2 Dr. Daniel Douglas MD Work Phone: 3(831)[phone] [place] [address] 11-28-2024 12:53-0400 Body weight 78.[address] Daniel Douglas MD Work Phone: 2(637)[phone] [place] [address] 10-15-2024 07:17-0400 Body height 177.[address] Daniel Douglas MD Work Phone: 5(803)[phone] [place] [address] 10-15-2024 07:17-0400 Body mass index (BMI) [Ratio] 25.8 kg/m2 Dr. Daniel Douglas MD Work Phone: [phone] [place] [address] 10-15-2024 07:17-0400 Body temperature 98.6 [degF] Dr. Daniel Douglas MD Work Phone: [phone] [place] [address] 10-15-2024 07:17-0400 Body weight 81.[address] Daniel Douglas MD Work Phone: [phone] [place] [address] 10-15-2024 07:17-0400 Diastolic blood pressure 61 mm[Hg] Dr. Daniel Douglas MD Work Phone: [phone] [place] [address] 10-15-2024 07:17-0400 Heart rate 58 /min Dr. Daniel Douglas MD Work Phone: [facility] 10-15-2024 07:17-0400 Respiratory rate 18 /min Dr. Daniel Douglas MD Work Phone: [facility] 10-15-2024 07:17-0400 SaO2% (BldA) [Mass fraction] 99 % Dr. Daniel Douglas MD Work Phone: [facility] 10-15-2024 07:17-0400 Systolic blood pressure 137 mm[Hg] Dr. Daniel Douglas MD Work Phone: [facility] 08-11-2024 13:32-0500 Body mass index (BMI) [Ratio] 25.5 kg/m2 Daniel Douglas MD Work Phone: [facility] 08-11-2024 13:32-0500 Body weight 80.6 kg Daniel Douglas MD Work Phone: [facility] 08-11-2024 13:32-0500 Diastolic blood pressure 70 mm[Hg] Daniel Douglas MD Work Phone: [facility] 08-11-2024 13:32-0500 Heart rate 68 /min Daniel Douglas MD Work Phone: [facility] 08-11-2024 13:32-0500 Respiratory rate 16 /min Daniel Douglas MD Work Phone: [facility] 08-11-2024 13:32-0500 Systolic blood pressure 110 mm[Hg] Daniel Douglas MD Work Phone: [facility] 02-07-2024 13:37-0400 Body mass index (BMI) [Ratio] 25.37 kg/m2 Daniel Douglas MD Work Phone: [facility] 02-07-2024 13:37-0400 Body weight 80.2 kg Daniel Douglas MD Work Phone: [facility] 02-07-2024 13:37-0400 Diastolic blood pressure 66 mm[Hg] Daniel Douglas MD Work Phone: [facility] 02-07-2024 13:37-0400 Heart rate 80 /min Daniel Douglas MD Work Phone: [facility] 02-07-2024 13:37-0400 Respiratory rate 18 /min Daniel Douglas MD Work Phone: [facility] 02-07-2024 13:37-0400 Systolic blood pressure 104 mm[Hg] Daniel Douglas MD Work Phone: [facility] 05-07-2023 12:56-0400 Diastolic blood pressure 74 mm[Hg] Elisabeth Clements MD Work Phone: [facility] 05-07-2023 12:56-0400 Heart rate 92 /min Elisabeth Clements MD Work Phone: [facility] 05-07-2023 12:56-0400 SaO2% (BldA) [Mass fraction] 98 % Elisabeth Clements MD Work Phone: [facility] 05-07-2023 12:56-0400 Systolic blood pressure 142 mm[Hg] Elisabeth Clements MD Work Phone: [facility] 05-07-2023 12:36-0400 Respiratory rate 16 /min Elisabeth Clements MD Work Phone: [facility] 05-07-2023 11:11-0400 Body temperature 98.2 [degF] Elisabeth Clements MD Work Phone: [facility] 05-07-2023 11:11-0400 Body weight 82.4 kg Elisabeth Clements MD Work Phone: [facility] 04-29-2023 16:07-0400 Body temperature 99 [degF] [facility] 04-29-2023 16:07-0400 SaO2% (BldA) [Mass fraction] 99 % [facility] 04-29-2023 15:46-0400 Body height 177.8 cm [facility] 04-29-2023 15:46-0400 Body mass index (BMI) [Ratio] 25.7 kg/m2 [facility] 04-29-2023 15:46-0400 Body weight 81.19 kg [facility] 04-29-2023 15:46-0400 Diastolic blood pressure 95 mm[Hg] [facility] 04-29-2023 15:46-0400 Heart rate 112 /min [facility] 04-29-2023 15:46-0400 Respiratory rate 18 /min [facility] 04-29-2023 15:46-0400 Systolic blood pressure 124 mm[Hg] [facility] 04-26-2023 15:21-0400 Body height 177.8 cm Elisabeth Clements MD Work Phone: [facility] 04-26-2023 15:21-0400 Body temperature 97.11 [degF] Elisabeth Clements MD Work Phone: [facility] 04-26-2023 15:21-0400 Body weight 82.37 kg Elisabeth Clements MD Work Phone: [facility] 04-26-2023 15:21-0400 Diastolic blood pressure 78 mm[Hg] Elisabeth Clements MD Work Phone: [facility] 04-26-2023 15:21-0400 Heart rate 132 /min Elisabeth Clements MD Work Phone: [facility] 04-26-2023 15:21-0400 SaO2% (BldA) [Mass fraction] 98 % Elisabeth Clements MD Work Phone: [facility] 04-26-2023 15:21-0400 Systolic blood pressure 112 mm[Hg] Elisabeth Clements MD Work Phone: [facility] 07-27-2022 17:24-0500 Body weight 83.42 kg Daniel Douglas MD Work Phone: [facility] 07-27-2022 17:24-0500 Diastolic blood pressure 70 mm[Hg] Daniel Douglas MD Work Phone: [facility] 07-27-2022 17:24-0500 Heart rate 76 /min Daniel Douglas MD Work Phone: [facility] 07-27-2022 17:24-0500 Respiratory rate 16 /min Daniel Douglas MD Work Phone: [facility] 07-27-2022 17:24-0500 Systolic blood pressure 128 mm[Hg] Daniel Douglas MD Work Phone: [facility] 01-21-2022 17:30-0400 Body weight 81.6 kg Daniel Douglas MD Work Phone: [facility] 01-21-2022 17:30-0400 Diastolic blood pressure 78 mm[Hg] Daniel Douglas MD Work Phone: [facility] 01-21-2022 17:30-0400 Heart rate 80 /min Daniel Douglas MD Work Phone: [facility] 01-21-2022 17:30-0400 Respiratory rate 18 /min Daniel Douglas MD Work Phone: [facility] 01-21-2022 17:30-0400 Systolic blood pressure 120 mm[Hg] Daniel Douglas MD Work Phone: [facility] Encounters Encounter Date Encounter Type Care Provider Facility Start: 11-28-2024 End: 11-28-2024 Emergency department patient visit Dr. Daniel Douglas MD Work Phone: -Emergency Department Work Phone: Start: 10-15-2024 End: 10-15-2024 Emergency department patient visit Dr. Daniel Douglas MD Work Phone: -Emergency Department Work Phone: Start: 08-11-2024 End: 08-11-2024 Patient encounter procedure Daniel Douglas MD Work Phone: [facility] [place] Comment on above: Primary hypertension (Primary Dx); Schizophrenic disorder (HCC); Elevated glucose; Hyperlipidemia, unspecified hyperlipidemia type Start: 08-11-2024 End: 08-11-2024 ambulatory DANIEL DOUGLAS Facility:[facility] Start: 02-07-2024 End: 02-07-2024 ambulatory DANIEL DOUGLAS Facility:[facility] Start: 02-07-2024 End: 02-07-2024 Patient encounter procedure Daniel Douglas MD Work Phone: [facility] [place] Comment on above: Essential hypertensi on with goal blood pressure less than 130/85 (Primary Dx); Elevated glucose; Hyperlipidemia, unspecified hyperlipidemia type; Schizophrenic disorder (HCC); Screening for depression; Encounter for screening examination for other mental health and behavioral disorders Start: 01-27-2024 End: 01-27-2024 ambulatory DANIEL DOUGLAS Facility:[facility] Start: 10-21-2023 End: 10-21-2023 ambulatory DANIEL DOUGLAS Facility:[facility] Start: 05-07-2023 End: 05-07-2023 Subsequent hospital visit by physician Elisabeth Clements MD Work Phone: Ambulatory Surgery Comment on above: Positive fecal occul t blood test [R19.5] Start: 04-29-2023 End: 04-29-2023 Emergency department patient visit [facility]-Emergency Department Work Phone: Start: 04-29-2023 ambulatory Daniel medina MD Work Phone: Family [facility] Comment on above: Fall Start: 04-26-2023 End: 04-26-2023 Patient encounter procedure Elisabeth Clements MD Work Phone: General Surgery Comment on above: Positive fecal occul t blood test Start: 02-22-2023 Telephone encounter Beni short APRN.EVENT HOST Work Phone: [facility] [place] Comment on above: Results Start: 02-08-2023 Telephone encounter Beni short FIXED CAPITAL CLERK.EVENT HOST Work Phone: [facility] [place] Comment on above: Results Start: 02-02-2023 Telephone encounter Beni short FIXED CAPITAL CLERK.EVENT HOST Work Phone: [facility] Comment on above: Results Start: 07-27-2022 End: 07-27-2022 Patient encounter procedure Daniel Douglas MD Work Phone: [facility] [place] Comment on above: Primary hypertension (Primary Dx); Schizophrenic disorder (HCC) Start: 05-14-2022 Telephone encounter Daniel craig MD Work Phone: Family [facility] Comment on above: Clinical Update Start: 01-27-2022 Telephone encounter Daniel craig MD Work Phone: [facility] Comment on above: Results Start: 01-21-2022 End: 01-21-2022 Patient encounter procedure Daniel Douglas MD Work Phone: Family [facility] Comment on above: Essential hypertensi on with goal blood pressure less than 130/85 (Primary Dx); Screening for colon cancer Start: 11-10-2021 End: 11-10-2021 Subsequent hospital visit by physician Sugar [facility] Work Phone: Radiology Comment on above: Acute pain of right knee [M25.561] Procedures Date Procedure Procedure Detail Performing Clinician Start: 02-07-2024 Adult depression scr eening assessment Daniel Douglas MD Work Phone: Start: 01-27-2024 Lipid 1996 panel - S wanda or Plasma Daniel Douglas MD Work Phone: Start: 05-07-2023 Colonoscopy flx dx w /collj spec when pfrmd Elisabeth Clements MD Work Phone: Start: 05-07-2023 Colonoscopy Elisabeth Clements MD Work Phone: Start: 04-29-2023 CT of face Start: 04-29-2023 CT of head without contrast Start: 01-28-2023 Lipid 1996 panel - S wanda or Plasma Elisabeth Clements MD Work Phone: Start: 01-21-2022 Adult depression scr eening assessment Daniel Douglas MD Work Phone: Start: 11-10-2021 Radiologic exam knee complete 4/more views Tawanna rS APRN.CNP Work Phone: Plan of Treatment Date Care Activity Detail Author Start: 05-07-2033 Screening for malign ant neoplasm of colon [facility] Start: 2029 RSV Vaccine (1 - 1-d ose 75+ series) RSV Vaccine (1 - 1-dose 75+ series) [facility] Start: 01-26-2029 Lipid panel Lipid Screening [facility] Start: 01-29-2028 Lipid 1996 panel - Serum or Plasma Lipid Screening [facility] Start: 01-29-2028 LIPID SCREEN LIPID SCREEN [facility] Start: 01-26-2027 Diabetes Screening Diabetes Screenin g [facility] Start: 01-26-2027 LIPID SCREEN LIPID SCREEN [facility] Start: 02-19-2026 DIABETES SCREEN DIABETES SCREEN [facility] Start: 02-19-2026 Diabetes Screening Diabetes Screenin g [facility] Start: 01-28-2026 DIABETES SCREEN DIABETES SCREEN [facility] Start: 08-11-2025 Annual PCP Team Cis Coordinator sera Disease Visit Annual PCP Team Chronic Disease Visit [facility] Start: 08-11-2025 BP Controlled (<130/80) BP Controlle d (<130/80) [facility] Start: 07-03-2025 LIPID SCREEN LIPID SCREEN [facility] Start: 02-08-2025 End: 05-10-2025 CBC W Auto Differential panel - Blood COMPLETE BLOOD COUNT AND DIFFERENTIAL Lab Routine Primary hypertension Expected: 02/08/2025 (Approximate), Expires: 05/10/2025 [facility] Comment on above: Expected: 02/08/2025 (Approximate), Expires: 05/10/2025 Start: 02-08-2025 End: 05-10-2025 Comprehensive metabolic 2000 panel - Serum or Plasma COMPREHENSIVE METABOLIC PANEL Lab Routine Elevated glucose Hyperlipidemia, unspecified hyperlipidemia type Expected: 02/08/2025 (Approximate), Expires: 05/10/2025 [facility] Comment on above: Expected: 02/08/2025 (Approximate), Expires: 05/10/2025 Start: 02-08-2025 End: 05-10-2025 Hemoglobin A1c in Blood HEMOGLOBIN A1C Lab Routine Elevated glucose Expected: 02/08/2025 (Approximate), Expires: 05/10/2025 [facility] Comment on above: Expected: 02/08/2025 (Approximate), Expires: 05/10/2025 Start: 02-08-2025 End: 05-10-2025 Lipid 1996 panel - Serum or Plasma LIPID PANEL BASIC Lab Routine Primary hypertension Hyperlipidemia, unspecified hyperlipidemia type Expected: 02/08/2025 (Approximate), Expires: 05/10/2025 [facility] Work Phone: Comment on above: Expected: 02/08/2025 (Approximate), Expires: 05/10/2025 Start: 02-08-2025 End: 02-08-2025 Patient encounter procedure 02/08/2025 1:20 PM EDT Office Visit [facility] [address] [place], [place] [id number] Daniel Douglas MD [address] [place] [address] Medicare wellness/6 mo follow up [facility] Comment on above: Medicare wellness/6 mo follow up Start: 02-06-2025 Annual PCP Team Cis Coordinator sera Disease Visit Annual PCP Team Chronic Disease Visit [facility] Start: 02-06-2025 Anxiety Screening Anxiety Screening [facility] Start: 02-06-2025 BP Controlled (<130/80) BP Controlle d (<130/80) [facility] Start: 02-06-2025 Depression Screening Depression Scre ening [facility] Start: 02-06-2025 Hepatitis C screening Hepatitis C Sc charly [facility] Comment on above: Postponed from 12/27 (Declined at this time) Start: 02-06-2025 Pneumococcal Vaccine : 50+ (1 of 1 - PCV) Pneumococcal Vaccine: 50+ (1 of 1 - PCV) [facility] Comment on above: Postponed from 12/27 (Declined at this time) Start: 02-06-2025 Pneumococcal Vaccine : 65+ (1 of 1 - PCV) Pneumococcal Vaccine: 65+ (1 of 1 - PCV) [facility] Comment on above: Postponed from 12/27 (Declined at this time) Start: 02-06-2025 RSV Vaccine (1 - 1-d ose 60+ series) RSV Vaccine (1 - 1-dose 60+ series) [facility] Comment on above: Postponed from 12/27 (Declined at this time) Start: 02-06-2025 Shingrix Vaccine (1 of 2) Shingrix Vaccine (1 of 2) [facility] Comment on above: Postponed from 12/27 (Declined at this time) Start: 01-26-2025 DIABETES SCREEN DIABETES SCREEN [facility] Start: 10-15-2024 [facility] Start: 08-11-2024 End: 08-11-2024 Patient encounter procedure 08/11/2024 2:00 PM EST Office Visit [facility] [address] [place] [address] Daniel Douglas MD [address] [facility] [place] [id number] 6 mo f/u Family [facility] Comment on above: 6 mo f/u Start: 08-08-2024 End: 11-07-2024 CBC panel - Blood by Automated count COMPLETE BLOOD COUNT Lab Routine Essential hypertension with goal blood pressure less than 130/85 Expected: 08/08/2024 (Approximate), Expires: 11/07/2024 [facility] Comment on above: Expected: 08/08/2024 (Approximate), Expires: 11/07/2024 Start: 08-08-2024 End: 11-07-2024 Comprehensive metabolic 2000 panel - Serum or Plasma COMPREHENSIVE METABOLIC PANEL Lab Routine Elevated glucose Hyperlipidemia, unspecified hyperlipidemia type Expected: 08/08/2024 (Approximate), Expires: 11/07/2024 [facility] Work Phone: Comment on above: Expected: 08/08/2024 (Approximate), Expires: 11/07/2024 Start: 08-08-2024 End: 11-07-2024 Hemoglobin A1c in Blood HEMOGLOBIN A1C Lab Routine Elevated glucose Expected: 08/08/2024 (Approximate), Expires: 11/07/2024 [facility] Comment on above: Expected: 08/08/2024 (Approximate), Expires: 11/07/2024 Start: 08-08-2024 End: 11-07-2024 Lipid 1996 panel - Serum or Plasma LIPID PANEL BASIC Lab Routine Elevated glucose Hyperlipidemia, unspecified hyperlipidemia type Expected: 08/08/2024 (Approximate), Expires: 11/07/2024 [facility] Comment on above: Expected: 08/08/2024 (Approximate), Expires: 11/07/2024 Start: 07-29-2024 Covid-19 Vaccine () Covid-19 Vaccine ( season) [facility] Comment on above: Postponed from 03/05 (Declined at this time) Start: 07-05-2024 Advance Directive Discussion Advance Directive Discussion [facility] Start: 05-07-2024 Colonoscopy Colonoscopy [facility] Start: 05-07-2024 Colorectal Cancer Screening Colorectal Cancer Screening [facility] Start: 04-26-2024 BP Controlled (<130/80) BP Controlle d (<130/80) [facility] Start: 03-05-2024 Covid-19 Vaccine ( season) Covid-19 Vaccine () [facility] Start: 03-05-2024 Influenza vaccination Influenza Vacc ine (#1) [facility] Start: 02-04-2024 COLORECTAL CANCER SCREENING COLORECTAL CANCER SCREENING [facility] Start: 02-04-2024 FECAL OCCULT BLOOD FECAL OCCULT BLOO D [facility] Start: 02-04-2024 Screening for malign ant neoplasm of colon Fecal Occult Blood [facility] Start: 01-26-2024 ANNUAL PCP TEAM INFORMATION MANAGEMENT OFFICER SERA DISEASE VISIT ANNUAL PCP TEAM CHRONIC DISEASE VISIT [facility] Start: 01-26-2024 BP CONTROLLED (<130/80) BP CONTROLLE D (<130/80) [facility] Start: 01-26-2024 COVID-19 VACCINE (6 - Pfizer series) COVID-19 VACCINE (6 - Pfizer series) [facility] Comment on above: Postponed from 09/06 (Declined at this time) Start: 01-26-2024 HEPATITIS C SCREENING HEPATITIS C IL CHARLY [facility] Comment on above: Postponed from 12/27 (Declined at this time) Start: 01-26-2024 Pneumococcal Vaccine : 65+ (1 - PCV) Pneumococcal Vaccine: 65+ (1 - PCV) [facility] Comment on above: Postponed from 12/27 (Declined at this time) Start: 01-26-2024 PNEUMOCOCCAL: 65+ (1 - PCV) PNEUMOCOCCAL: 65+ (1 - PCV) [facility] Comment on above: Postponed from 12/27 (Declined at this time) Start: 01-26-2024 SHINGRIX VACCINE (1 of 2) SHINGRIX VACCINE (1 of 2) [facility] Comment on above: Postponed from 12/27 (Declined at this time) Start: 07-27-2023 ANNUAL PCP TEAM INFORMATION MANAGEMENT OFFICER SERA DISEASE VISIT ANNUAL PCP TEAM CHRONIC DISEASE VISIT [facility] Start: 07-27-2023 BP CONTROLLED (<130/80) BP CONTROLLE D (<130/80) [facility] Start: 07-03-2023 DIABETES SCREEN DIABETES SCREEN [facility] Start: 04-29-2023 [facility] Start: 03-05-2023 Covid-19 Vaccine () Covid-19 Vaccine () [facility] Start: 03-05-2023 Influenza vaccination C [facility] Start: 02-10-2023 COLORECTAL CANCER SCREENING COLORECTAL CANCER SCREENING [facility] Start: 02-10-2023 FECAL OCCULT BLOOD FECAL OCCULT BLOO D [facility] Start: 02-02-2023 End: 04-04-2023 Hemoglobin A1c in Blood HGB A1C Lab Routine Elevated glucose Expected: 02/02/2023, Expires: 04/04/2023 [facility] Work Phone: Comment on above: Expected: 02/02/2023 , Expires: 04/04/2023 Start: 01-24-2023 End: 03-26-2023 CBC W Auto Differential panel - Blood CBC + DIFF Lab Routine Primary hypertension Expected: 01/24/2023 (Approximate), Expires: 03/26/2023 [facility] Work Phone: Comment on above: Expected: 01/24/2023 (Approximate), Expires: 03/26/2023 Start: 01-24-2023 End: 03-26-2023 Comprehensive metabolic 2000 panel - Serum or Plasma COMP METABOLIC PANEL Lab Routine Primary hypertension Expected: 01/24/2023 (Approximate), Expires: 03/26/2023 [facility] Work Phone: Comment on above: Expected: 01/24/2023 (Approximate), Expires: 03/26/2023 Start: 01-24-2023 End: 03-26-2023 Lipid 1996 panel - Serum or Plasma LIPID PANEL BASIC Lab Routine Primary hypertension Expected: 01/24/2023 (Approximate), Expires: 03/26/2023 [facility] Work Phone: Comment on above: Expected: 01/24/2023 (Approximate), Expires: 03/26/2023 Start: 01-21-2023 Adult depression screening assessment DEPRESSION SCREENING [facility] Start: 01-21-2023 ANNUAL PCP TEAM INFORMATION MANAGEMENT OFFICER SERA DISEASE VISIT ANNUAL PCP TEAM CHRONIC DISEASE VISIT [facility] Start: 01-21-2023 BP CONTROLLED (<130/80) BP CONTROLLE D (<130/80) [facility] Start: 07-16-2022 HEPATITIS C SCREENING HEPATITIS C SC CHARLY [facility] Comment on above: Postponed from 12/27 (Declined at this time) Start: 03-05-2022 Influenza vaccination INFLUENZA (#1) [facility] Start: 02-04-2022 COLORECTAL CANCER SCREENING COLORECTAL CANCER SCREENING [facility] Start: 02-04-2022 FECAL OCCULT BLOOD FECAL OCCULT BLOO D [facility] Start: 01-22-2022 End: 03-24-2022 CBC panel - Blood by Automated count CBC Lab Routine Essential hypertension with goal blood pressure less than 130/85 Expected: 01/22/2022 (Approximate), Expires: 03/24/2022 [facility] Work Phone: Comment on above: Expected: 01/22/2022 (Approximate), Expires: 03/24/2022 Start: 01-22-2022 End: 03-24-2022 Comprehensive metabolic 2000 panel - Serum or Plasma COMP METABOLIC PANEL Lab Routine Essential hypertension with goal blood pressure less than 130/85 Expected: 01/22/2022 (Approximate), Expires: 03/24/2022 [facility] Work Phone: Comment on above: Expected: 01/22/2022 (Approximate), Expires: 03/24/2022 Start: 01-22-2022 End: 03-24-2022 Lipid 1996 panel - Serum or Plasma LIPID PANEL BASIC Lab Routine Essential hypertension with goal blood pressure less than 130/85 Expected: 01/22/2022 (Approximate), Expires: 03/24/2022 [facility] Work Phone: Comment on above: Expected: 01/22/2022 (Approximate), Expires: 03/24/2022 Start: 12-04-2021 COVID-19 VACCINE (5 - Booster for Pfizer series) COVID-19 VACCINE (5 - Booster for Pfizer series) [facility] Start: 07-05-2021 DEPRESSION ASSESSMENT DEPRESSION ASS ESSMENT [facility] Start: 03-17-2021 Urine microalbumin profile [facility] Start: 12-28-2019 PNEUMOCOCCAL: 65+ (1 - PCV) PNEUMOCOCCAL: 65+ (1 - PCV) [facility] Start: 12-07-2017 PROSTATE CANCER SCREENING DISCUSSION PROSTATE CANCER SCREENING DISCUSSION [facility] Start: 2014 RSV Vaccine (1 - 1-d ose 60+ series) RSV Vaccine (1 - 1-dose 60+ series) [facility] Start: 2004 SHINGRIX VACCINE (1 of 2) SHINGRIX VACCINE (1 of 2) [facility] Start: 12-28-1999 COLOGUARD (FIT-DNA) COLOGUARD (FIT-D NA) [facility] Start: 12-28-1999 Colonoscopy COLONOSCOPY [facility] [facility] Start: 12-28-[address] COLONOGRAPHY [facility] Start: 12-28-1999 Screening for malign ant neoplasm of colon [facility] Start: 12-28-1999 SIGMOIDOSCOPY SIGMOIDOSCOPY [facility] Start: 1972 HEPATITIS C SCREENING HEPATITIS C SC REENING [facility] Start: 1955 ABDOMINAL AORTIC ANEURYSM SCREENING ABDOMINAL AORTIC ANEURYSM SCREENING [facility] Start: 1955 Abdominal aortic aneurysm screening Abdominal Aortic Aneurysm Screening [facility] End: 04-26-2024 COLONOSCOPY DIAGNOSTIC COLONOSCOPY DIAGNOSTIC Endoscopy Routine Positive fecal occult blood test 1 Occurrences starting 04/26/2023 until 04/26/2024 [facility] Work Phone: Comment on above: 1 Occurrences starti ng 04/26/2023 until 04/26/2024 Hemoglobin.gastroint est inal.lower [Presence] in Stool by Immunoassay FECAL OCCULT BLOOD TEST Lab Routine Screening for colon cancer Ordered: 01/21/2022 [facility] Work Phone: Comment on above: Ordered: 01/21/2022 Patient Education [facility] Work Phone: Patient referral [facility] Work Phone: [facility] Immunizations Immunization Date Immunization Notes Care Provider Fa stephanie 05-09-2022 COVID-19 booster vaccine, age 12+ yr, bivalent (PFIZER-BIONTECH) Daniel Douglas MD Work Phone: [facility] 10-09-2021 COVID-19 vaccine, ag e 12+ yr (PFIZER-BIONTECH - PURPLE TOP) Daniel Douglas MD Work Phone: [facility] 09-30-2020 COVID-19 vaccine, ag e 12+ yr (PFIZER-BIONTECH - PURPLE TOP) Daniel Douglas MD Work Phone: [facility] 09-08-2020 COVID-19 vaccine, ag e 12+ yr (PFIZER-BIONTECH - PURPLE TOP) Daniel Douglas MD Work Phone: [facility] 04-26-2018 influenza virus vaccine, unspecified formulation Elisabeth Clements MD Work Phone: [facility] 03-17-2011 tetanus toxoid, redu jacklyn diphtheria toxoid, and acellular pertussis vaccine, adsorbed Daniel Douglas MD Work Phone: [facility] Payers Date Payer Category Payer Self-pay [id number] 2019 Medicare [employer] [place] [place] [id number] 2019-Present [phone] [address] [place] [address] O [id number] 2019 Medicare [employer] [place] [place] [id number] 2019-Present [phone] [address] [place] [address] O [id number] 2019 Medicare [id number] 2007 Private Health Insurance CHRISTIE Treadwell [id number] Unknown [id number] Unknown [id number] Social History Date Type Detail Facility Start: 03-17-2011 End: 08-11-2024 Tobacco smoking status NHIS Ex-smoker [facility] Work Phone: End: 03-30-1991 History of tobacco use Current smoker [facility] Work Phone: Start: 11-10-2021 End: 08-11-2024 Alcohol intake Current non-drinker of alcohol (finding) [facility] Start: 1955 Sex Assigned At Not on file [facility] Start: 10-31-2021 End: 01-26-2022 Exposure to SARS-CoV-2 (event) Not sure [facility] End: 03-30-1991 History of tobacco use Cigarette Smoker [facility] Start: 03-17-2011 End: 08-11-2024 Tobacco use and exposure Smokeless tobacco non-user [facility] Start: 01-25-2023 End: 02-07-2024 History of Social function [facility] Work Phone: Start: 01-25-2023 End: 02-07-2024 Tobacco use panel [facility] Work Phone: Adult Depression Screening Assessment 0 [facility] Work Phone: Start: 04-29-2023 Tobacco smoking stat us LAIS Unknown if ever smoked [facility] Start: 1955 Sex Assigned At Male [facility] Start: 10-15-2024 End: 11-28-2024 Tobacco smoking status NHIS Never smoked tobacco (finding) [facility] Start: 10-15-2024 Sex Male (finding) [facility] Clinical Notes 11-10-2021 to 11-28-2024 Daniel Douglas MD - 08/11/2024 2:00 PM Daniel Villagomez MD - 02/07/2024 1:40 PM EDCarmella Conklin, RN - 05/07/2023 12:26 PM Britt Buitrago RN - 05/07/2023 11:23 AM EDT Note Date & Type Note Facility 11-28-2024 Hospital Discharg e instructions Additional Instructions Follow-up with your dentist as well as your PCP. Return back to the ED if symptoms change or worsen. Tylenol Motrin as needed for pain. You received Motrin here in the emergency department, known Motrin for 4 to 6 hours. [facility] Work Phone: 10-15-2024 Discharge summary [facility] 08-11-2024 History of Present illness Narrative Chief Complaint Patient presents with: 6 Month Exam HPI Wilbert Deluca is a 68 year old male who presents here today for 6 month follow up. Enjoys watching [employer] and [employer] movies. Denies any bowel, Gi, or urinary concerns. Hx of elevated glucose. Does not drink pop. Tries to watch diet. Walks for exercise. HTN: No chest pains, dizziness, or SOB. Checking BP at home occ. Taking Lisinopril 10 mg daily. Schizophrenia: [facility] who prescribes Thorazine 50 mg 1 pill TID. Feels shaky today or nervous, this occ intermittently, which he thinks is from drinking tea that has caffeine. Past medical history, appointments, medications, allergies reviewed. Previous Medical History PAST MEDICAL HISTORY Diagnosis Date Essential hypertension, benign Unspecified schizophrenia, unspecified condition Schizophrenia Previous Surgical History PAST SURGICAL HISTORY Procedure Laterality Date COLONOSCOPY 05/07/2023 repeat 10 years TONSILLECTOMY PRIMARY/SECONDARY <AGE 11 Tonsillectomy Family History FAMILY HISTORY Problem Relation Age of Onset Coronary Artery Disease Mother Diabetes Maternal Uncle Patient Allergies ALLERGIES Allergen Reactions Haldol [Haloperidol* Prolixin [Fluphenaz* Stelazine [Trifluop* Current Medications Current Outpatient Medications on File Prior to Visit Medication Sig lisinopril (ZESTRIL) 10 mg tablet Take 1 tablet by mouth once daily. chlorproMAZINE (THORAZINE) 50 mg tablet take one three times daily No current facility-administered medications on file prior to visit. Social History Social History Tobacco Use Smoking status: Former Current packs/day: 0.00 Types: Cigarettes Quit date: 03/30/1991 Years since quittin.3 Smokeless tobacco: Never Vaping Use Vaping status: Never Used Substance Use Topics Alcohol use: No Drug use: No EXAM: BP 110/70 Pulse 68 Resp 16 Wt 80.6 kg (177 lb 11.1 oz) BMI 25.50 kg/m General Appearance: Well appearing, alert, in no acute distress, well-hydrated, well nourished.. Lungs: Lungs clear to auscultation. No wheezing, rhonchi, rales.. Heart: RRR without murmur, gallop, or rubs. No ectopy. Health Maintenance List Abdominal Aortic Aneurysm Screening Never done DTaP,Tdap,Td Vaccine(2 - Td or Tdap) due on 03/17/2021 Influenza Vaccine(1) due on 03/05/2024 Covid-19 Vaccine( season) due on 03/05/2024 Advance Directive Discussion due on 07/05/2024 Hepatitis C Screening due on 02/06/2025 Shingrix Vaccine(1 of 2) due on 02/06/2025 Pneumococcal Vaccine: 50+(1 of 1 - PCV) due on 02/06/2025 Annual PCP Team Chronic Disease Visit due on 02/06/2025 Depression Screening due on 02/06/2025 Anxiety Screening due on 02/06/2025 BP Controlled (<130/80) due on 02/06/2025 Diabetes Screening due on 01/26/2027 Lipid Screening due on 01/26/2029 RSV Vaccine(1 - 1-dose 75+ series) due on 2029 Colorectal Cancer Screening due on 05/07/2033 Data reviewed None ASSESSMENT/PLAN: 1. Primary hypertension - ICD9: 401.9, ICD10: I10 (primary diagnosis) - Controlled - Continue current medications - Recommend home blood pressure monitoring, to bring results to next visit - Encouraged sodium restriction, DASH or Mediterranean diet - Recommend regular aerobic exercise 2. Schizophrenic disorder (HCC) - ICD9: 295.90, ICD10: F20.9 Continue current medications. [facility] with [facility] 3. Elevated glucose - ICD9: 790.29, ICD10: R73.09 Continue with diet and exercise Follow up in 6 months for Medicare Wellness exam. Labs prior. I agree with the Chief Complaint, ROS, and Past Histories independently gathered by the clinical support teacher and the remaining scribed note accurately describes my personal service to the patient. Medical Decision Making: Problems: Moderate: 2+ stable chronic illnesses Data: Unique test(s) ordered: 3+ Risk: Moderate: Drug management Medical Decision Making Level: 4 - Moderate Daniel Douglas MD The documentation for this note was completed by Zhanna Velazquez MA acting as scribe for Daniel Douglas MD. August 11, 2024 1:33 PM. Zhanna Velazquez MA documented in this encounter [facility] 08-11-2024 Note HNO ID: [id number] Author: DANIEL DOUGLAS MD Service: ? Author Type: Physician Type: Progress Notes Filed: 08/11/2024 13:46 Note Text: Chief Complaint Patient presents with: 6 Month Exam HPI Wilbert Deluca is a 68 year old male who presents here today for 6 month follow up. Enjoys watching westerns and action movies. Denies any bowel, Gi, or urinary concerns. Hx of elevated glucose. Does not drink pop. Tries to watch diet. Walks for exercise. HTN: No chest pains, dizziness, or SOB. Checking BP at home occ. Taking Lisinopril 10 mg daily. Schizophrenia: [facility] 6 months who prescribes Thorazine 50 mg 1 pill TID. Feels shaky today or nervous, this occ intermittently, which he thinks is from drinking tea that has caffeine. Past medical history, appointments, medications, allergies reviewed. Previous Medical History PAST MEDICAL HISTORY Diagnosis Date Essential hypertension, benign Unspecified schizophrenia, unspecified condition Schizophrenia Previous Surgical History PAST SURGICAL HISTORY Procedure Laterality Date COLONOSCOPY 05/07/2023 repeat 10 years TONSILLECTOMY PRIMARY/SECONDARY Tonsillectomy Family History FAMILY HISTORY Problem Relation Age of Onset Coronary Artery Disease Mother Diabetes Maternal Uncle Patient Allergies ALLERGIES Allergen Reactions Haldol [Haloperidol* Prolixin [Fluphenaz* Stelazine [Trifluop* Current Medications Current Outpatient Medications on File Prior to Visit Medication Sig lisinopril (ZESTRIL) 10 mg tablet Take 1 tablet by mouth once daily. chlorproMAZINE (THORAZINE) 50 mg tablet take one three times daily No current facility-administered medications on file prior to visit. Social History Social History Tobacco Use Smoking status: Former Current packs/day: 0.00 Types: Cigarettes Quit date: 03/30/1991 Years since quittin.3 Smokeless tobacco: Never Vaping Use Vaping status: Never Used Substance Use Topics Alcohol use: No Drug use: No EXAM: BP 110/70 Pulse 68 Resp 16 Wt 80.6 kg (177 lb 11.1 oz) BMI 25.50 kg/m? General Appearance: Well appearing, alert, in no acute distress, well-hydrated, well nourished.. Lungs: Lungs clear to auscultation. No wheezing, rhonchi, rales.. Heart: RRR without murmur, gallop, or rubs. No ectopy. Health Maintenance List Abdominal Aortic Aneurysm Screening Never done DTaP,Tdap,Td Vaccine(2 - Td or Tdap) due on 03/17/2021 Influenza Vaccine(1) due on 03/05/2024 Covid-19 Vaccine( season) due on 03/05/2024 Advance Directive Discussion due on 07/05/2024 Hepatitis C Screening due on 02/06/2025 Shingrix Vaccine(1 of 2) due on 02/06/2025 Pneumococcal Vaccine: 50+(1 of 1 - PCV) due on 02/06/2025 Annual PCP Team Chronic Disease Visit due on 02/06/2025 Depression Screening due on 02/06/2025 Anxiety Screening due on 02/06/2025 BP Controlled (<130/80) due on 02/06/2025 Diabetes Screening due on 01/26/2027 Lipid Screening due on 01/26/2029 RSV Vaccine(1 - 1-dose 75+ series) due on 2029 Colorectal Cancer Screening due on 05/07/2033 Data reviewed None ASSESSMENT/PLAN: 1. Primary hypertension - ICD9: 401.9, ICD10: I10 (primary diagnosis) - Controlled - Continue current medications - Recommend home blood pressure monitoring, to bring results to next visit - Encouraged sodium restriction, DASH or Mediterranean diet - Recommend regular aerobic exercise 2. Schizophrenic disorder (HCC) - ICD9: 295.90, ICD10: F20.9 Continue current medications. [facility] with [facility] 3. Elevated glucose - ICD9: 790.29, ICD10: R73.09 Continue with diet and exercise Follow up in 6 months for Medicare Wellness exam. Labs prior. I agree with the Chief Complaint, ROS, and Past Histories independently gathered by the clinical support teacher and the remaining scribed note accurately describes my personal service to the patient. Medical Decision Making: Problems: Moderate: 2+ stable chronic illnesses Data: Unique test(s) ordered: 3+ Risk: Moderate: Drug management Medical Decision Making Level: 4 - Moderate Daniel Douglas MD The documentation for this note was completed by Zhanna Velazquez MA acting as scribe for Daniel Douglas MD. August 11, 2024 1:33 PM. Zhanna Velazquez MA [facility] 02-07-2024 History of Present illness Narrative Chief Complaint Patient presents with: F/U 6 Month HPI Wilbert Deluca is a 68 year old male who presents here today for 6 month follow up. No bowel, Gi, or urinary issues. HTN: Checking BP at home with readings varying. Pt states at times readings are lower other times it's 140/90. Reports he was going to run out of his BP medications, so he stopped taking it a couple weeks ago so he could start taking it before his appt. Requesting refill. Denies any chest pains, dizziness, or SOB. Taking Lisinopril 10 mg daily. Schizophrenia: [facility] 6 months and taking Thorazine 50 mg 1 pill TID. Tries to watch diet and walks for exercise. Hx of elevated glucose. Stopped drinking pop. HM - Anxiety/Depression completed. Declines Hep C screening. Declines Shingles, RSV and Pneumo vaccine. Past medical history, appointments, medications, allergies reviewed. Previous Medical History PAST MEDICAL HISTORY No date: Essential hypertension, benign No date: Unspecified schizophrenia, unspecified condition Comment: Schizophrenia Previous Surgical History PAST SURGICAL HISTORY 05/07/2023: COLONOSCOPY Comment: repeat 10 years No date: TONSILLECTOMY PRIMARY/SECONDARY <AGE 11 Comment: Tonsillectomy Family History FAMILY HISTORY Problem Relation Age of Onset Coronary Artery Disease Mother Diabetes Maternal Uncle Patient Allergies ALLERGIES Allergen Reactions Haldol [Haloperidol* Prolixin [Fluphenaz* Stelazine [Trifluop* Current Medications Current Outpatient Medications on File Prior to Visit Medication Sig lisinopril (ZESTRIL) 10 mg tablet Take 1 tablet by mouth once daily. chlorproMAZINE (THORAZINE) 50 mg tablet take one three times daily No current facility-administered medications on file prior to visit. Social History Social History Tobacco Use Smoking status: Former Types: Cigarettes Quit date: 03/30/1991 Years since quittin.8 Smokeless tobacco: Never Vaping Use Vaping Use: Never used Substance Use Topics Alcohol use: No Drug use: No EXAM: BP 104/66 (BP Site: Left Arm, BP Position: Sitting, BP Cuff Size: Regular Adult) Pulse 80 Resp 18 Wt 80.2 kg (176 lb 12.9 oz) BMI 25.37 kg/m General Appearance: Well appearing, alert, in no acute distress, well-hydrated, well nourished.. Lungs: Lungs clear to auscultation. No wheezing, rhonchi, rales.. Heart: RRR without murmur, gallop, or rubs. No ectopy. Health Maintenance List Abdominal Aortic Aneurysm Screening Never done Depression Screening Never done Anxiety Screening Never done Hepatitis C Screening Never done BP Controlled (<130/80) Never done Shingrix Vaccine(1 of 2) Never done RSV Vaccine(1 - 1-dose 60+ series) Never done Pneumococcal Vaccine: 65+(1 of 1 - PCV) Never done DTaP,Tdap,Td Vaccine(2 - Td or Tdap) due on 03/17/2021 Covid-19 Vaccine( - 2022- season) due on 07/29/2024 Influenza Vaccine(1) due on 03/05/2024 Annual PCP Team Chronic Disease Visit due on 07/29/2024 Diabetes Screening due on 01/26/2027 Lipid Screening due on 01/26/2029 Colorectal Cancer Screening due on 05/07/2033 Advance Directive Discussion Completed Data reviewed Appointment on 01/27/2024 Component Date Value Protein, Total 01/27/2024 7.5 Albumin 01/27/2024 4.1 Calcium, Total 01/27/2024 11.4 (H) Bilirubin, Total 01/27/2024 0.4 Alkaline Phosphatase 01/27/2024 108 AST 01/27/2024 22 ALT 01/27/2024 22 Glucose 01/27/2024 95 BUN 01/27/2024 28 (H) Creatinine 01/27/2024 1.38 (H) Sodium 01/27/2024 136 Potassium 01/27/2024 4.5 Chloride 01/27/2024 100 CO2 01/27/2024 24 Anion Gap 01/27/2024 12 Estimated Glomerular Dwight* 01/27/2024 55 (L) WBC 01/27/2024 10.82 RBC 01/27/2024 4.22 Hemoglobin 01/27/2024 12.4 (L) Hematocrit 01/27/2024 38.3 (L) MCV 01/27/2024 90.8 MCH 01/27/2024 29.4 MCHC 01/27/2024 32.4 RDW-CV 01/27/2024 12.7 Platelet Count 01/27/2024 429 (H) MPV 01/27/2024 10.5 Absolute nRBC 01/27/2024 <0.01 Hemoglobin A1C 01/27/2024 5.4 Estimated Average Glucose 01/27/2024 108 Cholesterol, Total 01/27/2024 183 Triglyceride 01/27/2024 123 HDL Cholesterol 01/27/2024 40 Non HDL Cholesterol 01/27/2024 143 (H) Fasting Time 01/27/2024 15 VLDL Cholesterol 01/27/2024 25 TC:HDL Ratio 01/27/2024 4.58 LDL Cholesterol 01/27/2024 118 (H) LDL:HDL Ratio 01/27/2024 2.95 (H) ASSESSMENT/PLAN: 1. Essential hypertension with goal blood pressure less than 130/85 - ICD9: 401.9, ICD10: I10 (primary diagnosis) - Controlled - Continue current medications - Recommend home blood pressure monitoring, to bring results to next visit - Encouraged sodium restriction, DASH or Mediterranean diet - Recommend regular aerobic exercise - LISINOPRIL 10 MG TABLET - COMPLETE BLOOD COUNT 2. Elevated glucose - ICD9: 790.29, ICD10: R73.09 Lifestyle Monitor - COMPREHENSIVE METABOLIC PANEL - LIPID PANEL BASIC - HEMOGLOBIN A1C 3. Hyperlipidemia, unspecified hyperlipidemia type - ICD9: 272.4, ICD10: E78.5 - COMPREHENSIVE METABOLIC PANEL - LIPID PANEL BASIC 4. Schizophrenic disorder (HCC) - ICD9: 295.90, ICD10: F20.9 [facility] with [facility] 5. Screening for depression - ICD9: V79.0, ICD10: Z13.31 - DEPRESSION SCREENING 6. Encounter for screening examination for other mental health and behavioral disorders - ICD9: V79.8, ICD10: Z13.39 - ANXIETY SCREENING Follow up in 6 months with labs prior; monitor blood count and renal function Medical Decision Making: Problems: Moderate: 2+ stable chronic illnesses Data: Unique test result(s) reviewed: 3+ Unique test(s) ordered: 3+ Risk: Moderate: Drug management Medical Decision Making Level: 4 - Moderate Daniel Douglas MD documented in this encounter [facility] 02-07-2024 Note HNO ID: [id number] Author: DANIEL DOUGLAS MD Service: ? Author Type: Physician Type: Progress Notes Filed: 02/07/2024 14:00 Note Text: Chief Complaint Patient presents with: F/U 6 Month HPI Wilbert Deluca is a 68 year old male who presents here today for 6 month follow up. No bowel, Gi, or urinary issues. HTN: Checking BP at home with readings varying. Pt states at times readings are lower other times it's 140/90. Reports he was going to run out of his BP medications, so he stopped taking it a couple weeks ago so he could start taking it before his appt. Requesting refill. Denies any chest pains, dizziness, or SOB. Taking Lisinopril 10 mg daily. Schizophrenia: [facility] 6 months and taking Thorazine 50 mg 1 pill TID. Tries to watch diet and walks for exercise. Hx of elevated glucose. Stopped drinking pop. HM - Anxiety/Depression completed. Declines Hep C screening. Declines Shingles, RSV and Pneumo vaccine. Past medical history, appointments, medications, allergies reviewed. Previous Medical History PAST MEDICAL HISTORY No date: Essential hypertension, benign No date: Unspecified schizophrenia, unspecified condition Comment: Schizophrenia Previous Surgical History PAST SURGICAL HISTORY 05/07/2023: COLONOSCOPY Comment: repeat 10 years No date: TONSILLECTOMY PRIMARY/SECONDARY Comment: Tonsillectomy Family History FAMILY HISTORY Problem Relation Age of Onset Coronary Artery Disease Mother Diabetes Maternal Uncle Patient Allergies ALLERGIES Allergen Reactions Haldol [Haloperidol* Prolixin [Fluphenaz* Stelazine [Trifluop* Current Medications Current Outpatient Medications on File Prior to Visit Medication Sig lisinopril (ZESTRIL) 10 mg tablet Take 1 tablet by mouth once daily. chlorproMAZINE (THORAZINE) 50 mg tablet take one three times daily No current facility-administered medications on file prior to visit. Social History Social History Tobacco Use Smoking status: Former Types: Cigarettes Quit date: 03/30/1991 Years since quittin.8 Smokeless tobacco: Never Vaping Use Vaping Use: Never used Substance Use Topics Alcohol use: No Drug use: No EXAM: BP 104/66 (BP Site: Left Arm, BP Position: Sitting, BP Cuff Size: Regular Adult) Pulse 80 Resp 18 Wt 80.2 kg (176 lb 12.9 oz) BMI 25.37 kg/m? General Appearance: Well appearing, alert, in no acute distress, well-hydrated, well nourished.. Lungs: Lungs clear to auscultation. No wheezing, rhonchi, rales.. Heart: RRR without murmur, gallop, or rubs. No ectopy. Health Maintenance List Abdominal Aortic Aneurysm Screening Never done Depression Screening Never done Anxiety Screening Never done Hepatitis C Screening Never done BP Controlled (<130/80) Never done Shingrix Vaccine(1 of 2) Never done RSV Vaccine(1 - 1-dose 60+ series) Never done Pneumococcal Vaccine: 65+(1 of 1 - PCV) Never done DTaP,Tdap,Td Vaccine(2 - Td or Tdap) due on 03/17/2021 Covid-19 Vaccine(2022- season) due on 07/29/2024 Influenza Vaccine(1) due on 03/05/2024 Annual PCP Team Chronic Disease Visit due on 07/29/2024 Diabetes Screening due on 01/26/2027 Lipid Screening due on 01/26/2029 Colorectal Cancer Screening due on 05/07/2033 Advance Directive Discussion Completed Data reviewed Appointment on 01/27/2024 Component Date Value Protein, Total 01/27/2024 7.5 Albumin 01/27/2024 4.1 Calcium, Total 01/27/2024 11.4 (H) Bilirubin, Total 01/27/2024 0.4 Alkaline Phosphatase 01/27/2024 108 AST 01/27/2024 22 ALT 01/27/2024 22 Glucose 01/27/2024 95 BUN 01/27/2024 28 (H) Creatinine 01/27/2024 1.38 (H) Sodium 01/27/2024 136 Potassium 01/27/2024 4.5 Chloride 01/27/2024 100 CO2 01/27/2024 24 Anion Gap 01/27/2024 12 Estimated Glomerular Dwight* 01/27/2024 55 (L) WBC 01/27/2024 10.82 RBC 01/27/2024 4.22 Hemoglobin 01/27/2024 12.4 (L) Hematocrit 01/27/2024 38.3 (L) MCV 01/27/2024 90.8 MCH 01/27/2024 29.4 MCHC 01/27/2024 32.4 RDW-CV 01/27/2024 12.7 Platelet Count 01/27/2024 429 (H) MPV 01/27/2024 10.5 Absolute nRBC 01/27/2024 <0.01 Hemoglobin A1C 01/27/2024 5.4 Estimated Average Glucose 01/27/2024 108 Cholesterol, Total 01/27/2024 183 Triglyceride 01/27/2024 123 HDL Cholesterol 01/27/2024 40 Non HDL Cholesterol 01/27/2024 143 (H) Fasting Time 01/27/2024 15 VLDL Cholesterol 01/27/2024 25 TC:HDL Ratio 01/27/2024 4.58 LDL Cholesterol 01/27/2024 118 (H) LDL:HDL Ratio 01/27/2024 2.95 (H) ASSESSMENT/PLAN: 1. Essential hypertension with goal blood pressure less than 130/85 - ICD9: 401.9, ICD10: I10 (primary diagnosis) - Controlled - Continue current medications - Recommend home blood pressure monitoring, to bring results to next visit - Encouraged sodium restriction, DASH or Mediterranean diet - Recommend regular aerobic exercise - LISINOPRIL 10 MG TABLET - COMPLETE BLOOD COUNT 2. Elevated glucose - ICD9: (more content not included)... [facility] 05-07-2023 Nurse Note Pt. arrived to phase 2 in left lateral position. Resting, SR up x 2, call light in reach. Denies pain. Carmella Moore RN Patients back hairs clipped to accommodate EKG pad placement. Britt Grey RN documented in this encounter [facility] 05-07-2023 History and physical note UPDATED PROCEDURAL SEDATION HISTORY AND PHYSICAL EXAMINATION SERVICE DATE: 05/07/2023 SERVICE TIME: 11:01 PHYSICAL EXAM MUST BE COMPLETED ON ADMISSION PROCEDURE: colonoscopy, possible biopsies Procedure Indications: FOBT positive The History and Physical (completed in the past 30 days) has been reviewed and the patient has been examined. The contents accurately reflect the patient's condition with the following additions or revisions since the H&P was completed. ASA Class: ASA Class:: Patient with mild systemic disease Examination indicates no changes. AIRWAY: Airway Visualization of Uvula: Yes Mouth opening greater than 2 fingerbreadths: Yes Neck Full Range of Motion: Yes LUNGS: Lungs clear to auscultation CARDIAC: Regular rhythm,Regular rate Provisional Diagnosis/Treatment Plan: colonoscopy, possible biopsies SEDATION GOAL: Moderate This H&P can be found in the Electronic Medical Record . SIGNATURE: Elisabeth Clements MD PATIENT NAME: Wilbert Deluca DATE: May 07, 2023 TIME: 11:02 AM Source Note - Elisabeth Clements MD - 05/07/2023 11:45 AM EDT HISTORY AND PHYSICAL Wilbert Deluca 1955 REFERRING PHYSICIAN: Beni Romano APRN.ABDULLAHI CHIEF COMPLAINT: Consult (+ FOBT) HPI: The patient is a 67 year old male referred for endoscopy. Wilbert notes positive FOBT. He is not anemic. The patient denies blood in stools, denies abdominal pain, and denies changes in bowel habits. The patient notes no colon cancer in immediate family. The patient has not had previous colonoscopy. PAST MEDICAL HISTORY PAST MEDICAL HISTORY Diagnosis Date Essential hypertension, benign Unspecified schizophrenia, unspecified condition Schizophrenia PAST SURGICAL HISTORY PAST SURGICAL HISTORY Procedure Laterality Date TONSILLECTOMY PRIMARY/SECONDARY <AGE 11 Tonsillectomy CURRENT MEDICATIONS Current Outpatient Medications Medication Sig lisinopril (ZESTRIL) 10 mg tablet Take 1 tablet by mouth once daily. chlorproMAZINE (THORAZINE) 50 mg tablet take one three times daily peg-electrolyte soln (NULYTELY) 420 gram suspension Take 4,000 mL by mouth one time only for 1 dose. No current facility-administered medications for this visit. ALLERGIES: Haldol [Haloperidol Lactate], Prolixin [Fluphenazine Enanthate], and Stelazine [Trifluoperazine Hcl] PERSONAL HISTORY: SOCIAL HISTORY Social History Tobacco Use Smoking status: Former Types: Cigarettes Quit date: 03/30/1991 Years since quittin.0 Smokeless tobacco: Never Vaping Use Vaping Use: Never used Substance Use Topics Alcohol use: No Drug use: No FAMILY HISTORY FAMILY HISTORY Problem Relation Age of Onset Coronary Artery Disease Mother Diabetes Maternal Uncle The review of systems data was entered by the nurse and reviewed by mt Nursing Notes: Katina Sorto LPN 04/26/2023 3:24 PM Signed REVIEW OF SYSTEMS: General: The patient denies fatigue, denies weight loss, denies weight gain, denies feeling hot, and denies feelings of cold. Eyes: The patient denies glaucoma, denies eye injury/surgery, wears glasses or contacts. Ear/Nose/Throat: The patient denies allergies, denies hayfever, denies ear infections, and denies bloody noses. Cardiovascular: The patient denies chest pain, denies heart disease, NOTES high blood pressure,denies cardiac stent, denies prior heart attack, denies irregular heart beat, denies high cholesterol, denies poor circulation, denies heart failure, other cardiac issues, denies claudication, denies cold feet, denies peripheral arterial stent. Respiratory: The patient denies tuberculosis, denies pneumonia, denies frequent cough, denies pulmonary embolism, denies shortness of breath, and denies coughing up blood. Gastrointestinal: The patient denies difficulty swallowing, NOTES acid reflux, denies ulcers, denies vomiting, denies jaundice/hepatitis, denies gallbladder problems, denies black or tarry stools, denies hemorrhoids, denies bleeding from rectum, denies diverticulitis, denies constipation, denies diarrhea, denies loss of stool control, and denies hernias. Kidney/Bladder: The patient denies kidney stones, denies urine infections, and denies bloody urine. Skin: The patient denies a history of skin cancer, denies bleeding/changing moles, and denies a history of skin rash. Neurologic: The patient denies a history of epilepsy/convulsions, denies headaches, denies head/spinal injuries, and denies stroke/TIA. Psychiatric: The patient denies psychiatric medications, NOTES depression, and denies voices, denies substance abuse. Endocrine: The patient denies thyroid disorders, denies diabetes, and denies hormonal problems. Hematologic: The patient denies a history of bruising, denies bleeding, and denies anemia, denies blood clots. Infections: The patient denies a history of measles and mumps, denies rheumatic fever, and denies sexually transmitted diseases. Musculoskeletal: The patient denies back pain/injury, denies back problems, denies sciatica, denies knee/foot trouble, denies arthritis, or denies gout. When was patient's last Mammogram screening? N/A Last Colonoscopy: no prior colonoscopy Katina Sorto LPN PHYSICAL EXAMINATION: General: The patient is 67 year old male, well nourished, well hydrated in no acute distress. The patient is oriented to time, place, and person. VITALS: Blood pressure 112/78, pulse (!) 132, temperature 36.2 C (97.1 F), height 177.8 cm (5' 10), weight 82.4 kg (181 lb 9.6 oz), SpO2 98 %. Body mass index is 26.06 kg/m . Head: Normal cephalic, atraumatic Eyes: pupils are equally round, sclera are clear/anicteric, wearing glasses Neck is supple with no tracheal deviation Cardiac: normal heart sounds, regular Respiratory: normal breath sounds, normal respiratory excursion and pattern. Abdominal exam: benign Extremities: no clubbing, cyanosis or edema. Neuro: non focal Psych: normal mood IMPRESSION: FOBT positive PLAN: I have discussed the above with the patient. I have offered colonoscopy , possible biopsies I have explained the procedure to the patient. I have counseled the patient as to the risks of the procedure, including but not limited to: infection, bleeding, injury to any intrabdominal organs such as liver/spleen, perforation of the GI tract, inability to complete the procedure, complications of anesthesia, etc. - the patient understands. The patient wishes to proceed. I have answered all questions to the patient s satisfaction and the patient has no further questions. HISTORY AND PHYSICAL Wilbert Deluca 1955 REFERRING PHYSICIAN: Beni Romano APRN.EVENT HOST CHIEF COMPLAINT: Consult (+ FOBT) HPI: The patient is a 67 year old male referred for endoscopy. Wilbert notes positive FOBT. He is not anemic. The patient denies blood in stools, denies abdominal pain, and denies changes in bowel habits. The patient notes no colon cancer in immediate family. The patient has not had previous colonoscopy. PAST MEDICAL HISTORY PAST MEDICAL HISTORY Diagnosis Date Essential hypertension, benign Unspecified schizophrenia, unspecified condition Schizophrenia PAST SURGICAL HISTORY PAST SURGICAL HISTORY Procedure Laterality Date TONSILLECTOMY PRIMARY/SECONDARY <AGE 11 Tonsillectomy CURRENT MEDICATIONS Current Outpatient Medications Medication Sig lisinopril (ZESTRIL) 10 mg tablet Take 1 tablet by mouth once daily. chlorproMAZINE (THORAZINE) 50 mg tablet take one three times daily peg-electrolyte soln (NULYTELY) 420 gram suspension Take 4,000 mL by mouth one time only for 1 dose. No current facility-administered medications for this visit. ALLERGIES: Haldol [Haloperidol Lactate], Prolixin [Fluphenazine Enanthate], and Stelazine [Trifluoperazine Hcl] PERSONAL HISTORY: SOCIAL HISTORY Social History Tobacco Use Smoking status: Former Types: Cigarettes Quit date: 03/30/1991 Years since quittin.0 Smokeless tobacco: Never Vaping Use Vaping Use: Never used Substance Use Topics Alcohol use: No Drug use: No FAMILY HISTORY FAMILY HISTORY Problem Relation Age of Onset Coronary Artery Disease Mother Diabetes Maternal Uncle The review of systems data was entered by the nurse and reviewed by me Nursing Notes: Katina Sorto LPN 04/26/2023 3:24 PM Signed REVIEW OF SYSTEMS: General: The patient denies fatigue, denies weight loss, denies weight gain, denies feeling hot, and denies feelings of cold. Eyes: The patient denies glaucoma, denies eye injury/surgery, wears glasses or contacts. Ear/Nose/Throat: The patient denies allergies, denies hayfever, denies ear infections, and denies bloody noses. Cardiovascular: The patient denies chest pain, denies heart disease, NOTES high blood pressure,denies cardiac stent, denies prior heart attack, denies irregular heart beat, denies high cholesterol, denies poor circulation, denies heart failure, other cardiac issues, denies claudication, denies cold feet, denies peripheral arterial stent. Respiratory: The patient denies tuberculosis, denies pneumonia, denies frequent cough, denies pulmonary embolism, denies shortness of breath, and denies coughing up blood. Gastrointestinal: The patient denies difficulty swallowing, NOTES acid reflux, denies ulcers, denies vomiting, denies jaundice/hepatitis, denies gallbladder problems, denies black or tarry stools, denies hemorrhoids, denies bleeding from rectum, denies diverticulitis, denies constipation, denies diarrhea, denies loss of stool control, and denies hernias. Kidney/Bladder: The patient denies kidney stones, denies urine infections, and denies bloody urine. Skin: The patient denies a history of skin cancer, denies bleeding/changing moles, and denies a history of skin rash. Neurologic: The patient denies a history of epilepsy/convulsions, denies headaches, denies head/spinal injuries, and denies stroke/TIA. Psychiatric: The patient denies psychiatric medications, NOTES depression, and denies voices, denies substance abuse. Endocrine: The patient denies thyroid disorders, denies diabetes, and denies hormonal problems. Hematologic: The patient denies a history of bruising, denies bleeding, and denies anemia, denies blood clots. Infections: The patient denies a history of measles and mumps, denies rheumatic fever, and denies sexually transmitted diseases. Musculoskeletal: The patient denies back pain/injury, denies back problems, denies sciatica, denies knee/foot trouble, denies arthritis, or denies gout. When was patient's last Mammogram screening? N/A Last Colonoscopy: no prior colonoscopy Katina Sorto LPN PHYSICAL EXAMINATION: General: The patient is 67 year old male, well nourished, well hydrated in no acute distress. The patient is oriented to time, place, and person. VITALS: Blood pressure 112/78, pulse (!) 132, temperature 36.2 C (97.1 F), height 177.8 cm (5' 10), weight 82.4 kg (181 lb 9.6 oz), SpO2 98 %. Body mass index is 26.06 kg/m . Head: Normal cephalic, atraumatic Eyes: pupils are equally round, sclera are clear/anicteric, wearing glasses Neck is supple with no tracheal deviation Cardiac: normal heart sounds, regular Respiratory: normal breath sounds, normal respiratory excursion and pattern. Abdominal exam: benign Extremities: no clubbing, cyanosis or edema. Neuro: non focal Psych: normal mood IMPRESSION: FOBT positive PLAN: I have discussed the above with the patient. I have offered colonoscopy , possible biopsies I have explained the procedure to the patient. I have counseled the patient as to the risks of the procedure, including but not limited to: infection, bleeding, injury to any intrabdominal organs such as liver/spleen, perforation of the GI tract, inability to complete the procedure, complications of anesthesia, etc. - the patient understands. The patient wishes to proceed. I have answered all questions to the patient s satisfaction and the patient has no further questions. documented in this encounter [facility] 04-29-2023 Miscellaneous Notes Call placed to patient to triage for fall with head injury. Nurse triage completed. Protocol recommends go to ED now. Patient agreeable and will go to ED now. Call placed to sister Vianca to notify. Vianca to follow up with patient to make sure he follows through and try and find someone to sit with patient at the ED. Reason for Disposition [1] One or two black eyes (bruising, purple color of eyelids) AND [2] onset within 24 hours of head injury Answer Assessment - Initial Assessment Questions 1. MECHANISM: Patient reports falling over the weekend, face first down a hill, and landing on cement with his face. Patient reports that the swelling to his face started to go away but now it is coming back and his eyes are starting 2. ONSET: Patient reports Wednesday 3. NEUROLOGIC SYMPTOMS: Patient reports that everything went white. He currently has a headache. 4. MENTAL STATUS: Does the person know who they are, who you are, and where they are? Patient knows who he is and that he is at home. I am the nurse. 5. LOCATION: Face and forehead. 6. SCALP APPEARANCE:Patient not certain 7. SIZE: NA 8. PAIN: Yes not able to rate 9. TETANUS: Reports no open areas 10. OTHER SYMPTOMS: Neck pain but no vomiting. Protocols used: Head [id number] documented in this encounter [facility] 04-29-2023 Discharge summary Note Date/Time April 29, 2023 4:10pm [facility] Medical Records Department [address] [place] [address] Emergency Department Summary 04/29/23 MR#: [id number] Acct: [id number] Name: WILBERT DELUCA Rep #:[id number] : 1955 67 From: Iliana Avila PCP: Dr. Daniel Douglas MD Status:RE G ER Location: ED HPI History of Present Illness Chief Complaint: Fall Informant: patient Narrative Narrative: Patient is a 67-year-old male presenting for right-sided facial swelling. Patient states about 3 weeks ago he was walking down a grassy hill. He started to fall forward and ultimately landed on his head. He denies loss of consciousness but notes he was dazed at this time. He initially had a lot of swelling around his right face, eye area and had a bloody nose. The symptoms seem to resolved however some of the swelling came back over the last few days. He told his sister about it who lives in [place] and is his POA. She wasconcerned, contacted his PCP and they encouraged him to come to the ER for further evaluation. Patient denies any other complaint at this time. He stateshe is mostly concerned because he has a colonoscopy coming up and he is worried about that. Denies any acute vision changes, hearing changes, dental pain, trouble swallowing, shortness of breath, cough, chest pain or urinary symptoms. He notes that with the swelling this his face feels hot and that is what he describes as feeling like he has a fever. He does not feel like he has a fever or feel hot anywhere else on his body. He is not on any blood thinners. PFSH PFS Medical History no medical history Home Medications chlorpromazine 50 mg tablet 150 mg PO QHS 11/07/18 [History Last Taken Unknown] lisinopril 10 mg tablet 10 mg PO DAILY 11/07/18 [History Last Taken Unknown] amoxicillin 875 mg-potassium clavulanate 125 mg tablet 1 tab PO BID #28 tabs 04/29/23 [Rx Last Taken Unknown] Allergy/AdvReac Type Severity Reaction Status Date / Time fluphenazine enanthate AdvReac Vomiting Verified 04/29/23 15:48 [From Prolixin] fluphenazine HCl AdvReac Vomiting Verified 04/29/23 15:48 [From Prolixin] haloperidol [From Haldol] AdvReac Other Verified 04/29/23 15:48 haloperidol lactate AdvReac Other Verified 04/29/23 15:48 [From Haldol] trifluoperazine AdvReac Vomiting Verified 04/29/23 15:48 [From Stelazine] Social History Smoking Status: Never smoker ROS ROS ED Constitutional Constitutional ED: Denies chills or fever(s) Eyes Eyes: Denies blurry vision or change in vision ENT ENT ED: Reports other Details: right facial swelling ; Denies ear pain, rhinorrhea or sore throat Cardiovascular Cardiovascular: Denies chest pain or palpitations Respiratory/Chest Respiratory/Chest: Denies cough Gastrointestinal Gastrointestinal: Denies abdominal pain, nausea or vomiting Genitourinary Genitourinary ED: Denies dysuria Musculoskeletal Musculoskeletal: Denies arthralgias, myalgias or neck pain Integumentary Denies rash Neurologic Neurologic: Denies headache(s) or weakness Psychiatric Psychiatric: Reports anxiety Hematologic/Lymphatic Hematologic/Lymphatic: Denies easy bleeding or easy bruising EXAM Physical Exam Const Vital Signs: 04/29/23 15:46 04/29/23 16:07 04/29/23 16:07 Temperature 97 F L 99 F Temperature Source Temporal Oral Pulse Rate 112 H Respiratory Rate 18 Respiratory Effort Normal Respiratory Depth Normal Respiratory Pattern Normal Blood Pressure 124/95 H Blood Pressure Mean 104 Pulse Ox 99 99 Oxygen Delivery Method Room Air Room Air Positive well nourished and well developed General Appearance ED: well developed and NAD HEENT Reports TM's clear HEENT Narrative: There are some subtle soft tissue swelling noted of the right periorbital area and the right jawline. It is soft. Do not appreciate any associated induration, fluctuance or cellulitis. Patient does not have any obvious dental abscess or dentalgia on exam. No trismus. Sublingual mucosa is soft. Negative for atraumatic Nose: Negative for septum abnormal Tympanic Membrane ED: Yes TM's clear Eyes PERRL and EOMs intact bilaterally Neck full ROM Chest Wall inspection of chest normal and palpation of chest normal Resp normal respiratory effort and clear to auscultation bilaterally Cardio regular rhythm Rate: regular rate GI normal to inspection, nondistended, normoactive bowel sounds and non-tender Back/Spine normal to inspection and no thoracic nor lumbar tenderness Extremity normal to inspection and full ROM General Extremety ED: Negative for edema General Extremity: Negative for edema Neuro oriented x3 and moves all extremities Psych mental status grossly normal and thought process normal Skin no rashes or lesions noted and no wounds MDM MDM MDM Narrative Medical decision making narrative: Patient is evaluated for facial swelling after a fall 2 to 3 weeks ago. Patienthas some subtle edema to the right side of his face however he does not appear infectious. We will obtain imaging to rule out intracranial hemorrhage as soundlike he had a pretty significant fall as well as facial CT to rule out any underlying fracture. Question of this could be some dependent edema related with his recent injury. Do not appreciate any other peripheral edema and I havea lower suspicion for nephrotic syndrome or fluid overload/heart failure. I do not think lab work is indicated at this time. Patient is mildly tachycardic in the ER however I do question if this is more anxiety related. He was not tachycardic on my evaluation. CT of the brain does not show any acute intracranial findings. He does not haveany acute fracture of the maxillofacial bones however he does have mild right sided facial soft tissue swelling with no discrete fluid collection, multiple periodontal osseous eruptions about upper and lower teeth with multiple dental caries and right maxillary and ethmoid sinusitis. Patient be treated more as a sinusitis with Augmentin. He is agreeable with this plan of care. I do not think the swelling is particularly related to his trauma couple weeks ago. We will follow-up outpatient with his PCP. Given return precaution. Nursing staffwill contact patient's POA, his sister on our plan of care. Patient does not have any meningeal signs, abscess or other more severe featuresthat I think require further work-up, lab work or specialty consultants at this time Radiography Diagnostic Testing: Clinical Impression(s) from Imaging Studies Brain CT 04/29/23 16:04 IMPRESSION: No acute intracranial findings. Electronically Signed: Denys Block MD at 16:33 EDT , Facial/Sinus 04/29/23 16:04 IMPRESSION: No acute fracture of the maxillofacial bones. Electronically Signed: Denys Block MD at 16:38 EDT , Discharge Plan Triage Chief Complaint: Fall ED Provider: Iliana Dillon Dx/Rx/DC Orders Clinical Impression: Right maxillary sinusitis, Right facial swelling Instructions: ED Mechanical Fall, ED Sinusitis (Antibiotic Treatment) Prescriptions: New amoxicillin-pot clavulanate 875-125 mg tablet 1 tab PO BID Qty: 28 0RF No Action lisinopril 10 MG tablet 10 mg PO DAILY Patient Comments: Take 1 tablet by mouth once daily. chlorpromazine 50 MG tablet 150 mg PO QHS Primary Care Provider: Daniel Douglas Referrals: Daniel Douglas MD [Primary Care Provider] - Activity Restrictions/Additional Instructions: Your CT of the brain does not show any signs of trauma or bleeding. Your CT of the face does not show any signs of trauma but does show signs of inflammation of your sinuses (sinusitis) on the right side. I suspect this is causing the swelling. The antibiotics will treat that. You may also take [id number] ibuprofen or Tylenol to help with the discomfort. Disposition Disposition: Home, Self Care What to do if you have Problems For any increased pain, shortness of breath, bleeding, nausea or vomiting, chestpain, or any unexpected problems, contact your Primary Care Provider. Call [facility] ([phone]) or report to the closest Emergency Room. Call 911 if necessary. 04/29/23 [id number] <Electronically signed by Iliana Dillon DO> Cosigner Signature (if applicable): CC: Dr. Daniel Douglas MD ~ Signed [facility] Work Phone: [phone]) 953-812810-23-2023 History of Present illness Narrative* Elisabeth Clements MD - 04/26/2023 3:38 PM EDT HISTORY AND PHYSICAL Wilbert Unger Yosi 1955 REFERRING PHYSICIAN: Beni Romano APRN.EVENT HOST CHIEF COMPLAINT: Consult (+ FOBT) HPI: The patient is a 67 year old male referred for endoscopy. Wilbert notes positive FOBT. He is notanemic. The patient denies blood in stools, denies abdominal pain, and denies changes in bowel habits. The patient notes no colon cancer in immediate family. The patient has not had previous colonoscopy. PAST MEDICAL HISTORY Diagnosis Date Essential hypertension, benign Unspecified schizophrenia, unspecified condition Schizophrenia PAST SURGICAL HISTORY Procedure Laterality Date TONSILLECTOMY PRIMARY/SECONDARY <AGE 11 Tonsillectomy Current Outpatient Medications Medication Sig lisinopril (ZESTRIL) 10 mg tablet Take 1 tablet by mouth once daily. chlorproMAZINE (THORAZINE) 50 mg tablet take one three times daily peg-electrolyte soln (NULYTELY) 420 gram suspension Take 4,000 mL by mouth one time only for 1 dose. No current facility-administered medications for this visit. ALLERGIES: Haldol [Haloperidol Lactate], Prolixin [Fluphenazine Enanthate], and Stelazine [Trifluoperazine Hcl] PERSONAL HISTORY: Social History Tobacco Use Smoking status: Former Types: Cigarettes Quit date: 03/30/1991 Years since quittin.0 Smokeless tobacco: Never Vaping Use Vaping Use: Never used Substance Use Topics Alcohol use: No Drug use: No FAMILY HISTORY Problem Relation Age of Onset Coronary Artery Disease Mother Diabetes Maternal Uncle The review of systems data was entered by the nurse and reviewed by me Nursing Notes: Katina Sorto LPN 04/26/2023 3:24 PM Signed REVIEW OF SYSTEMS: General: The patient denies fatigue, denies weight loss, denies weight gain, denies feeling hot, and denies feelings of cold. Eyes: The patient denies glaucoma, denies eye injury/surgery, wears glasses or contacts. Ear/Nose/Throat: The patient denies allergies, denies hayfever, denies ear infections, and denies bloody noses. Cardiovascular: The patient denies chest pain, denies heart disease, NOTES high blood pressure,denies cardiac stent, denies prior heart attack, denies irregular heart beat, denies high cholesterol, denies poor circulation, denies heart failure, other cardiac issues, denies claudication, denies coldfeet, denies peripheral arterial stent. Respiratory: The patient denies tuberculosis, denies pneumonia, denies frequent cough, denies pulmonary embolism, denies shortness of breath, and denies coughing up blood. Gastrointestinal: The patient denies difficulty swallowing, NOTES acid reflux, denies ulcers, denies vomiting, denies jaundice/hepatitis, denies gallbladder problems, denies black or tarry stools, denies hemorrhoids, denies bleeding from rectum, denies diverticulitis, denies constipation, denies diarrhea, denies loss of stool control, and denies hernias. Kidney/Bladder: The patient denies kidney stones, denies urine infections, and denies bloody urine. Skin: The patient denies a history of skin cancer, denies bleeding/changing moles, and denies a history of skin rash. Neurologic: The patient denies a history of epilepsy/convulsions, denies headaches, denies head/spinal injuries, and denies stroke/TIA. Psychiatric: The patient denies psychiatric medications, NOTES depression, and denies voices, denies substance abuse. Endocrine: The patient denies thyroid disorders, denies diabetes, and denies hormonal problems. Hematologic: The patient denies a history of bruising, denies bleeding, and denies anemia, denies blood clots. Infections: The patient denies a history of measles and mumps, denies rheumatic fever, and denies sexually transmitted diseases. Musculoskeletal: The patient denies back pain/injury, denies back problems, denies sciatica, deniesknee/foot trouble, denies arthritis, or denies gout. When was patient's last Mammogram screening? N/A Last Colonoscopy: no prior colonoscopy Katina Sorto LPN PHYSICAL EXAMINATION: General: The patient is 67 year old male, well nourished, well hydrated in no acute distress. The patient is oriented to time, place, and person. VITALS: Blood pressure 112/78, pulse (!) 132, temperature 36.2 C (97.1 F), height 177.8 cm (5' 10), weight 82.4 kg (181 lb 9.6 oz), SpO2 98 %. Body mass index is 26.06 kg/m . Head: Normal cephalic, atraumatic Eyes: pupils are equally round, sclera are clear/anicteric, wearing glasses Neck is supple with no tracheal deviation Cardiac: normal heart sounds, regular Respiratory: normal breath sounds, normal respiratory excursion and pattern. Abdominal exam: benign Extremities: no clubbing, cyanosis or edema. Neuro: non focal Psych: normal mood Assessment IMPRESSION: FOBT positive PLAN: I have discussed the above with the patient. I have offered colonoscopy , possible biopsies I have explained the procedure to the patient. I have counseled the patient as to the risks of the procedure, including but not limited to: infection, bleeding, injury to any intrabdominal organs such as liver/spleen, perforation of the GI tract,inability to complete the procedure, complications of anesthesia, etc. - the patient understands. The patient wishes to proceed. I have answered all questions to the patient s satisfaction and the patient has no further questions. My clinic staff has educated the patient as to the colon cleansing regimen and I have prescribed Golytely for the colon cleansing solution. The patient will be scheduled for the procedure at [facility]. Patient will call to schedule as he is trying to arrange for transportation. Diagnoses: (R19.5) Positive fecal occult blood test I have confirmed and edited as necessary, the PFSH and ROS obtained by others. Consultation requested by Beni Romano for an opinion regarding patient's FOBT positivity. My final recommendations will be communicated back to the requesting physician by way of shared Medical record or letter to requesting physician via US mail. Medical Decision Making: Risk: Low: Low risk from testing/treatment Medical Decision Making Level: 2 - Straightforward Elisabeth Clements MD documented in this encounterCleveland [facility] Instructions* Patient Instructions* Elisabeth Clements MD - 04/26/2023 3:34 PM EDT Images from the original note were not included. Bowel Preparation Instructions for: Golytely, Nulytely, Trilyte or Colyte (polyethylene glycol 3350and electrolytes) IF YOU DO NOT FOLLOW THESE DIRECTIONS, YOUR COLONOSCOPY WILL BE CANCELLED. Chance Instructions: Your bowel must be empty so that your doctor can clearly view your colon. Follow all of the instructions in this handout EXACTLY as they are written. Do NOT eat any solid food the ENTIRE day before your colonoscopy. Drink only clear liquids. Buy your bowel preparation at least 5 days before your colonoscopy. TRANSPORTATION on the Day of Your Exam A responsible person MUST be present with you at Check In prior to your colonoscopy and REMAIN in the endoscopy area until you are discharged. You are NOT ALLOWED to drive, take a taxi or bus, or leave the Endoscopy Center ALONE. If you do not have a responsible ambulette driver (family member or friend) with you to take you home, your exam cannot be done with sedation and will be cancelled. Please bring a list of all of your current medications, including any Over-the Counter medications with you. Medications If you take insulin, diabetic medications or blood thinners such as Coumadin (warfarin), Plavix (clopidogrel), Ticlid (ticlopidine hydrochloride), Agrylin (anagrelide), Xarelto (Rivaroxaban), Pradaxa(Dabigatran), Eliquis (Apixaban), and Effient (Prasugrel). You MUST call the doctors who orders those medicines for instructions on altering the dosage before your colonoscopy. All other medications should be taken the day of the exam with a sip of water including ASPIRIN. Five (5) Days Before Your Colonoscopy Do NOT take medicines that stop diarrhea - such as Imodium, Kaopectate, or Pepto Bismol. Do NOT take fiber supplements - such as Metamucil, Citrucel, or Perdiem. Do NOT take products that contain iron - such as multi-vitamins (the label lists what is in the products). Do NOT take Vitamin E. Buy the prescription bowel preparation solution at your local pharmacy [facility] 1 06/2019 Bowel Preparation Instructions for: Golytely, Nulytely, Trilyte or Colyte (polyethylene glycol 3350and electrolytes) Three (3) Days Before Your Colonoscopy Do NOT eat high-fiber foods - such as popcorn, beans, seeds (flax, sunflower, quinoa), multigrain bread, nuts, salad/vegetables, or fresh and dried fruit. One (1) Day Before Your Colonoscopy Only drink clear liquids the ENTIRE DAY before your colonoscopy. Do NOT eat any solid foods. Drink at least 8 ounces of clear liquids every hour after waking up. The clear liquids you can drink include: Clear Liquid (NO RED LIQUIDS) DO NOT DRINK Gatorade, Pedialyte or Powerade Clear broth or bouillon Coffee or tea (no milk or non-dairy creamer) Carbonated and non-carbonated soft drinks Ajay-Aid or other fruit flavored drinks Strained fruit juices (no pulp) Jell-O, popsicles, hard candy Water Alcohol Milk or non-dairy creamers Noodles or vegetables in soup Juice with pulp Liquid you cannot see through Do not use tobacco/vaping products The bowel preparation solution will be consumed in two parts. Mix the solution the evening before your colonoscopy and refrigerate before drinking. You may add the flavor pack that came with the bowel preparation. Do NOT add ice, sugar or any other flavorings to the solution. Part 1 At 6:00 PM - Evening before your colonoscopy Drink an 8-oz glass of bowel preparation every 10 minutes for a total of 8 glasses. You may continue to drink clear liquids until midnight. Part 2 On the day of your colonoscopy you may drink clear liquids up to (three) 3 hours before your procedure. 4 1/2 hours before your colonoscopy Drink an 8-oz glass of bowel preparation every 10 minutes for a total of 8 glasses. Fifteen (15) minutes later, drink an 8-oz glass of clear liquids every 15 minutes for a total of 2 glasses. You may continue to drink clear liquids up to (three) 3 hours before your exam. 2 06/2019 documented in this encounterC[facility]10[facility] Nurse Note* Katina SortoKACY - 04/26/2023 3:22 PM EDT REVIEW OF SYSTEMS: General: The patient denies fatigue, denies weight loss, denies weight gain, denies feeling hot, and denies feelings of cold. Eyes: The patient denies glaucoma, denies eye injury/surgery, wears glasses or contacts. Ear/Nose/Throat: The patient denies allergies, denies hayfever, denies ear infections, and denies bloody noses. Cardiovascular: The patient denies chest pain, denies heart disease, NOTES high blood pressure,denies cardiac stent, denies prior heart attack, denies irregular heart beat, denies high cholesterol, denies poor circulation, denies heart failure, other cardiac issues, denies claudication, denies coldfeet, denies peripheral arterial stent. Respiratory: The patient denies tuberculosis, denies pneumonia, denies frequent cough, denies pulmonary embolism, denies shortness of breath, and denies coughing up blood. Gastrointestinal: The patient denies difficulty swallowing, NOTES acid reflux, denies ulcers, denies vomiting, denies jaundice/hepatitis, denies gallbladder problems, denies black or tarry stools, denies hemorrhoids, denies bleeding from rectum, denies diverticulitis, denies constipation, denies diarrhea, denies loss of stool control, and denies hernias. Kidney/Bladder: The patient denies kidney stones, denies urine infections, and denies bloody urine. Skin: The patient denies a history of skin cancer, denies bleeding/changing moles, and denies a history of skin rash. Neurologic: The patient denies a history of epilepsy/convulsions, denies headaches, denies head/spinal injuries, and denies stroke/TIA. Psychiatric: The patient denies psychiatric medications, NOTES depression, and denies voices, denies substance abuse. Endocrine: The patient denies thyroid disorders, denies diabetes, and denies hormonal problems. Hematologic: The patient denies a history of bruising, denies bleeding, and denies anemia, denies blood clots. Infections: The patient denies a history of measles and mumps, denies rheumatic fever, and denies sexually transmitted diseases. Musculoskeletal: The patient denies back pain/injury, denies back problems, denies sciatica, deniesknee/foot trouble, denies arthritis, or denies gout. When was patient's last Mammogram screening? N/A Last Colonoscopy: no prior colonoscopy Katina Sorto LPN documented in this encounterCleveland Clinic [facility]08-21-2023 Miscellaneous Notes* Telephone Encounter - Zhanna Velazquez Ma - 02/22/2023 8:32 AM EDT Letter mailed to pt home of results. Zhanna Velazquez MA * Telephone Encounter - Beni Romano APRN.CNP - 02/22/2023 7:51 AM EDT Please let the patient know that her Hgb A1c was normal. Beni Romano APRN.ABDULLAHI documented in this encounterCleveland Clinic [facility]08-07-2023 Miscellaneous Notes* Telephone Encounter - Kenya Patel LPN - 02/08/2023 10:59 AM EDT Spoke with pt and information listed below given. Pt verbalizes understanding. Pt reports he will make apt. Declined to have me transfer to schedulers. Kenya Patel LPN * Telephone Encounter - Venita Lyles MA - 02/08/2023 9:01 AM EDT Patient notified. Please assist patient with GEN SURG consult for Positive fecal occult blood test [R19.5] . Venita Lyles MA * Telephone Encounter - Beni Romano APRN.CNP - 02/08/2023 7:31 AM EDT Please let the patient know that his stool sample was positive. We should refer him to general surgery for colonoscopy and further evaluation. Beni Romano APRN.CNP documented in this encounterCleveland Clinic [facility]08-03-2023 Miscellaneous Notes* Telephone Encounter - Zhanna Velazquez Ma - 02/04/2023 4:47 PM EDT Pt notified. He will come in to do the A1c, however he stated he was not fasting for these labs, stated he had a pop prior to his appointment. Zhanna Velazquez Ma * Telephone Encounter - Zhanna Velazquez Ma - 02/02/2023 3:30 PM EDT Tried to reach pt, VM not set up. Unable to leave message. Will try again later. Zhanna Velazquez Ma * Telephone Encounter - Beni Romano APRN.CNP - 02/02/2023 3:19 PM EDT Please let the patient know that his cholesterol panel, kidney function, electrolytes, liver enzymes are all normal. His complete blood count is normal. His glucose is on the higher side for fasting.We should get a hemoglobin A1c to further investigate if he has developed diabetes. Beni Romano APRN.CNP documented in this encounterCleveland Clinic [facility]01-23-2023 History of Present illness Narrative* Daniel Douglas MD - 07/27/2022 5:40 PM EST Chief Complaint Patient presents with: 6 Month Exam HPI Wilbert Deluca is a 66 year old male who presents here today for 6 month follow up. Has an advanced directive. He is fully retired. He shops a lot, eats out, collects [employer] movies. Favorites are [employer]. He does not get the flu vaccine. He has had all his COVID vaccines. No bowel, Gi, or urinary issues. He walks twice a day for exercise. Makes his own meals at home and eats out 1 x per month. He is worried about his mobility, he doesn't walk to [facility] anymore because he is afraid he won't be able to walk back. He takes the bus a lot. He denies any pains. Used to take the Mobic for his knee pain but that has improved. Schizophrenia: [facility]. He has to do his visits over the phone due to not being able to do virtual visits. He states he prefers to go to the office and talk to her. Taking Thorazine 50 mg 1 pill TID. HTN: Checking BP at home occ with readings 130/80. No chest pains, dizziness, or SOB. Taking Lisinopril 10 mg daily. Past medical history, appointments, medications, allergies reviewed. Previous Medical History PAST MEDICAL HISTORY Diagnosis Date Essential hypertension, benign Unspecified schizophrenia, unspecified condition Schizophrenia Previous Surgical History PAST SURGICAL HISTORY Procedure Laterality Date TONSILLECTOMY PRIMARY/SECONDARY <AGE 11 Tonsillectomy Family History FAMILY HISTORY Problem Relation Age of Onset Coronary Artery Disease Mother Diabetes Maternal Uncle Patient Allergies ALLERGIES Allergen Reactions Haldol [Haloperidol* Prolixin [Fluphenaz* Stelazine [Trifluop* Current Medications Current Outpatient Medications on File Prior to Visit Medication Sig lisinopril (ZESTRIL, PRINIVIL) 10 mg tablet Take 1 tablet by mouth once daily. meloxicam (MOBIC) 15 mg tablet Take 1 tablet by mouth once daily. Take with food. (Patient not taking: Reported on 11/10/2021 ) chlorproMAZINE (THORAZINE) 50 mg tablet take one three times daily No current facility-administered medications on file prior to visit. Social History Social History Tobacco Use Smoking status: Former Types: Cigarettes Quit date: 03/30/1991 Years since quittin.3 Smokeless tobacco: Never Vaping Use Vaping Use: Never used Substance Use Topics Alcohol use: No Drug use: No EXAM: BP 128/70 Pulse 76 Resp 16 Wt 83.4 kg (183 lb 14.4 oz) BMI 26.39 kg/m General Appearance: Well appearing, alert, in no acute distress, well-hydrated, well nourished. andOverweight. Lungs: Lungs clear to auscultation. No wheezing, rhonchi, rales.. Heart: RRR without murmur, gallop, or rubs. No ectopy. Health Maintenance List ABDOMINAL AORTIC ANEURYSM SCREENING Never done SHINGRIX VACCINE(1 of 2) Never done PROSTATE CANCER SCREENING DISCUSSION due on 12/07/2017 PNEUMOCOCCAL: 65+(1 - PCV) Never done DTAP,TDAP,TD(2 - Td or Tdap) due on 03/17/2021 COVID-19 VACCINE(5 - Booster for Pfizer series) due on 12/04/2021 INFLUENZA(1) due on 03/05/2022 ADVANCE DIRECTIVE DISCUSSION due on 07/05/2022 DEPRESSION ASSESSMENT Never done HEPATITIS C SCREENING due on 07/16/2022 ANNUAL PCP TEAM CHRONIC DISEASE VISIT due on 01/21/2023 BP CONTROLLED (<130/80) due on 01/21/2023 COLORECTAL CANCER SCREENING due on 02/10/2023 DIABETES SCREEN due on 01/26/2025 LIPID SCREEN due on 01/26/2027 Data reviewed None ASSESSMENT/PLAN: 1. Primary hypertension - ICD9: 401.9, ICD10: I10 (primary diagnosis) - good control - Continue current medication(s) - Recommended regular aerobic exercise. - Monitor weight - Recommend home blood pressure monitoring, to bring results in on next visit - Goal of BP <130/80 2. Schizophrenic disorder (HCC) - ICD9: 295.90, ICD10: F20.9 Continue current medications. [facility] with [facility] Follow up in 6 months with fasting labs prior. I agree with the Chief Complaint, ROS, and Past Histories independently gathered by the clinical support teacher and the remaining scribed note accurately describes my personal service to the patient. Medical Decision Making: Problems: Low: Stable chronic illness Data: Unique test(s) ordered: 3+ Risk: Moderate: Drug management Medical Decision Making Level: 4 - Moderate Daniel Douglas MD The documentation for this note was completed by Zhanna Velazquez Ma acting as scribe for Daniel Douglas MD. July 27, 2022 5:26 PM. Zhanna Velazquez Ma documented in this encounterCleveland Clinic [facility]11-10-2022 Miscellaneous Notes* Telephone Encounter - Macie Shay Ma - 05/14/2022 10:07 AM EST Office received DNR and POA paperwork from pt's sister, Olga Garcia via mail. In letter she wantedPCP to sign 3 DNR orders for pt. All paperwork has been completed and mailed back to sister in pre-addressed envelope. Copy for pt'schart sent to scanning. Macie Shay Ma documented in this encounterCleveland Clinic [facility]07-26-2022 Miscellaneous Notes* Telephone Encounter - Adan Earl RN - 01/27/2022 4:27 PM EDT Patient returned call and given provider's message below with verbalized understanding. * Telephone Encounter - Oralia Etienne Ma - 01/27/2022 3:50 PM EDT Tried calling patient no answer and vm not set up Oralia Etienne Ma * Telephone Encounter - Daniel Douglas MD - 01/27/2022 3:25 PM EDT Please notify patient that his blood work all looks good. Daniel Douglas MD documented in this encounterCleveland Clinic [facility]07-20-2022 History of Present illness Narrative* Daniel Douglas MD - 01/21/2022 5:40 PM EDT Chief Complaint Patient presents with: 6 Month Exam HPI Wilbert Deluca is a 66 year old male who presents here today for 6 month follow up. He does have an advanced directive. Denies any bowel, Gi, or urinary issues. HTN: Checks BP occ at home, usually 130/80s Taking Lisinopril 10 mg daily. No chest pains, dizziness, or SOB. Schizophrenia: Taking Thorazine 50 mg TID which he is getting [facility]. Pain: right knee; improved. He quit his job at [employer] because he was not able to walk there andstand for the job. Was treated with 2 weeks of Mobic 15 mg daily, this did not help. If that did not help then referral to Ortho. He is scheduled to see Ortho on Wednesday. Past medical history, appointments, medications, allergies reviewed. Previous Medical History PAST MEDICAL HISTORY Diagnosis Date Essential hypertension, benign Unspecified schizophrenia, unspecified condition Schizophrenia Previous Surgical History PAST SURGICAL HISTORY Procedure Laterality Date TONSILLECTOMY PRIMARY/SECONDARY <AGE 11 Tonsillectomy Family History FAMILY HISTORY Problem Relation Age of Onset Coronary Artery Disease Mother Diabetes Maternal Uncle Patient Allergies ALLERGIES Allergen Reactions Haldol [Haloperidol* Prolixin [Fluphenaz* Stelazine [Trifluop* Current Medications Current Outpatient Medications on File Prior to Visit Medication Sig meloxicam (MOBIC) 15 mg tablet Take 1 tablet by mouth once daily. Take with food. (Patient not taking: Reported on 11/10/2021 ) lisinopril (ZESTRIL, PRINIVIL) 10 mg tablet Take 1 tablet by mouth once daily. chlorproMAZINE (THORAZINE) 50 mg tablet take one three times daily No current facility-administered medications on file prior to visit. Social History Social History Tobacco Use Smoking status: Former Smoker Quit date: 03/30/1991 Years since quittin.8 Smokeless tobacco: Never Used Vaping Use Vaping Use: Never used Substance Use Topics Alcohol use: No Drug use: No EXAM: There were no vitals taken for this visit. General Appearance: Well appearing, alert, in no acute distress, well-hydrated, well nourished.. Lungs: Lungs clear to auscultation. No wheezing, rhonchi, rales.. Heart: RRR without murmur, gallop, or rubs. No ectopy. Health Maintenance List ABDOMINAL AORTIC ANEURYSM SCREENING Never done SHINGRIX VACCINE(1 of 2) Never done PROSTATE CANCER SCREENING DISCUSSION due on 12/07/2017 PNEUMOCOCCAL: 65+(1 - PCV) Never done DTAP,TDAP,TD(2 - Td or Tdap) due on 03/17/2021 ADVANCE DIRECTIVE DISCUSSION Never done DEPRESSION SCREENING due on 01/08/2022 COLORECTAL CANCER SCREENING due on 02/04/2022 HEPATITIS C SCREENING due on 07/16/2022 INFLUENZA(1) due on 03/05/2022 ANNUAL PCP TEAM CHRONIC DISEASE VISIT due on 07/16/2022 BP CONTROLLED (<130/80) due on 11/10/2022 DIABETES SCREEN due on 07/03/2023 LIPID SCREEN due on 07/03/2025 COVID-19 VACCINE Completed Data reviewed none ASSESSMENT/PLAN: 1. Essential hypertension with goal blood pressure less than 130/85 - ICD9: 401.9, ICD10: I10 (primary diagnosis) - good control - Continue current medication(s) - Check CMP, lipid, CBC - Recommended regular aerobic exercise. - Recommend home blood pressure monitoring, to bring results in on next visit - Goal of BP <140/90 - LISINOPRIL 10 MG TABLET - COMP METABOLIC PANEL - LIPID PANEL BASIC - CBC 2. Screening for colon cancer - ICD9: V76.51, ICD10: Z12.11 - FECAL OCCULT BLOOD TEST Follow up in 6 months I agree with the Chief Complaint, ROS, and Past Histories independently gathered by the clinical support teacher and the remaining scribed note accurately describes my personal service to the patient. Medical Decision Making: Problems: Low: Stable chronic illness Data: Unique test(s) ordered: 3+ Risk: Moderate: Drug management Medical Decision Making Level: 4 - Moderate Daniel Douglas MD The documentation for this note was completed by Zhanna Velazquez Ma acting as scribe for Daniel Douglas MD. January 21, 2022 5:29 PM. Zhanna Velazquez Ma documented in this encounterCleveland Clinic [facility]05-09-2022 History of Present illness Narrative* Sharon Ramey RT(R) - 11/10/2021 2:50 PM EDT Radiology Service Progress Note PATIENT NAME: Wilbert Deluca DATE OF SERVICE: November 10, 2021 TIME: 2:48 PM PATIENT IDENTITY VERIFICATION COMPLETED USING TWO (2) IDENTIFIERS: Name and Date of confirmedby patient verbally. FALL SCREENING: Has the patient had 2 falls in the last year or 1 fall with injury or currently using an Ambulatory Assistive Device (Walker, Cane, Wheelchair, Crutches, etc.)? No PATIENT GENDER DATA: Male PATIENT RELEVANT IMPLANT DATA REVIEWED: Not Applicable RADIOLOGY DEPARTMENT: General X-ray: Exam(s) Completed: Lower Extremity X- Ray(s): Knee, AP / Lat / Tunne / Merchant Right and Wt. Bearing PERIPHERAL IV DATA: Not applicable SIGNED BY: RT Amadeo(R) November 10, 2021 2:48 PM documented in this encounterCleveland Clinic [facility] HospitalDischarge summary Author Ignacio Cameron [facility] Note Date/Time October 15, 2024 7:4 2am [facility] Medical Records Department [address] [place] [address] Emergency Department Summary 10/15/24 MR#: [id number] Acct: [id number] Name: WILBERT DELUCA Rep #:[id number] : 1955 68 From: Ignacio Cameron MD PCP: Dr. Daniel Douglas MD Status:RE G ER Location: ED HPI History of Present Illness Chief Complaint: Dental Informant: patient Onset/Context/Timing Onset: Weeks Context: Gradual Onset Timing: Continuous Current Severity: Mild Maximum Severity: Mild Associated Symptoms Assocated Symptom - Dental: jaw swelling Narrative Narrative: 68-year-old male history of schizoaffective disorder. States has had right lower jaw dental discomfort and mild swelling for 2 to 3 weeks. No fever. No trouble swallowing or breathing. 4 weeks ago he had dentures placed by [facility]. Prior similar symptoms: Yes Recent Illness/Hospitalization: No PFSH PFSH Home Medications ?Medication ?Instructions ?Recorded ?Last Taken ?Type chlorpromazine 50 mg tablet 150 mg PO QHS 11/07/18 Unk nown History lisinopril 10 mg tablet 10 mg PO DAILY 11/07/18 Unkn own History amoxicillin 875 mg-potassium 1 tab PO BID #28 tabs Unknown Rx clavulanate 125 mg tablet penicillin V potassium 500 mg 500 mg PO 4X/DAY #40 tab s 10/15/24 Unknown Rx tablet penicillin V potassium 500 mg 500 mg PO 4X/DAY #40 tab s 10/15/24 Unknown Rx tablet Allergy/AdvReac Type Severity Reaction Status Date / Time fluphenazine enanthate (From AdvReac Vomiting Verified 10/15/24 07:16 Prolixin) fluphenazine HCl (From AdvReac Vomiting Verified 10/15/24 07:16 Prolixin) haloperidol (From Haldol) AdvReac Other Verified 10/15/24 07:16 haloperidol lactate (From AdvReac Other Verified 10/15/24 07:16 Haldol) trifluoperazine (From AdvReac Vomiting Verified 10/15/24 07:16 Stelazine) Social History Smoking Status: Never smoker ROS ROS ED ROS Narrative Right lower jaw mild swelling. Dental pain. Constitutional Constitutional ED: Denies chills or fever(s) Eyes Eyes: Denies blurry vision ENT ENT ED: Denies ear pain Cardiovascular Cardiovascular: Denies chest pain Respiratory/Chest Respiratory/Chest: Denies cough Gastrointestinal Gastrointestinal: Denies abdominal pain Genitourinary Genitourinary ED: Denies dysuria Musculoskeletal Musculoskeletal: Denies arthralgias Integumentary Denies abscess Neurologic Neurologic: Denies headache(s) Psychiatric Psychiatric: Denies anxiety or depression Endocrine Endocrinology: Denies cold intolerance, heat intolerance, polydipsia, polyphagiaor polyuria Hematologic/Lymphatic Hematologic/Lymphatic: Denies easy bleeding, easy bruising or lymphadenopathy Allergic/Immunologic Allergic/Immunologic ED: Denies mouth swelling, tongue swelling or urticaria EXAM Physical Exam Narrative Exam Narrative: Well-appearing 68-year-old male. Vital signs stable afebrile. No distress. H EENT exam pupils round reactive light. No facial droop. Upper dentition of allbeen removed. Currently does not have his dentures in. He only has a few lowerdentition multiple missing teeth. Right lower last molar has had significant dental work. Scold plated. Tender to palp's. Nothing to drain. No trismus. No trouble close tongue is midline. No trouble swallowing or breathing. Moist mucous membranes. He has mild swelling to the right lower jawline. If adenopathy trachea nontender. Lungs clear. Heart regular rhythm. Abdomen soft. Moving all 4 extremities. Patient is awake and alert. Const Vital Signs: 10/15/24 07:17 Temperature 98.6 F Temperature Source Temporal Pulse Rate 58 L Respiratory Rate 18 Blood Pressure 137/61 H Blood Pressure Mean 86 Pulse Ox 99 Oxygen Delivery Method Room Air Positive well nourished and well developed; Negative for obese, cachectic, contractures or unkempt General Appearance ED: well developed and NAD; Negative for unkempt, cachectic or contractures Nutritional Appearance: Negative for cachectic or obese HEENT HEENT Narrative: Right lower last molar gold plated. Tender to palpation. Mild gingival swelling and redness. No drainable abscess. No trismus. The floor of his mouth is normal and nontender. Mouth ED: Yes lips normal, Yes tongue normal, Yes salivary gland normal, No mouth trauma and No salivary gland abnormal Mouth: lips normal, tongue normal, salivary gland normal, No mouth trauma and Nosalivary gland abnormal Teeth and Gingiva: abnormal tooth and associated gingiva Eyes PERRL and EOMs intact bilaterally Neck no lymphadenopathy, supple and no JVD General: normal visual inspection Lymph Lymphatic: no lymphadenopathy noted Chest Wall inspection of chest normal and palpation of chest normal Resp normal respiratory effort, no retractions and clear to auscultation bilaterally Cardio regular rate, regular rhythm, S1 normal heart sound, S2 normal heart sound and no murmurs GI normal to inspection, nondistended, normoactive bowel sounds, non-tender, non-distended and no masses Back/Spine no CVA tenderness Extremity normal to inspection and no joint enlargement Neuro oriented x3, CN's II-XII intact bilaterally and moves all extremities Sensorium / Orientation: alert, oriented to person, oriented to place and oriented to time Motor Exam: strength 5/5 throughout Psych mental status grossly normal Appearance: Negative for unkempt Mood & Affect: Negative for anxious or tearful Skin no rashes or lesions noted and no wounds MDM MDM MDM Narrative Medical decision making narrative: 68-year-old male. Infected right left lower molar. Will be placed on Pen-Vee K500 4 times daily for 10 days. First dose given here. [facility] He has a dentist at [facility] will call them and follow-up on Wednesday. History & Record Review Discussion w/independent historian: Patient Additional record(s) reviewed:: Prior inpatient record, Prior outpatient record,Prior ED visit and Prior labs Discharge Plan Triage Chief Complaint: Dental ED Provider: Ignacio Cameron Dx/Rx/DC Orders Clinical Impression: Pain, dental, Dental infection Instructions: Dental Abscess, ED Dental Pain Prescriptions: New penicillin V potassium 500 mg tablet 500 mg PO 4X/DAY Qty: 40 0RF penicillin V potassium 500 mg tablet 500 mg PO 4X/DAY Qty: 40 0RF No Action lisinopril 10 MG tablet 10 mg PO DAILY Patient Comments: Take 1 tablet by mouth once daily. chlorpromazine 50 MG tablet 150 mg PO QHS amoxicillin-pot clavulanate 875-125 mg tablet 1 tab PO BID Qty: 28 0RF Primary Care Provider: Daniel Douglas Referrals: Daniel Douglas MD [Primary Care Provider] - Activity Restrictions/Additional Instructions: Tylenol Motrin for pain. The antibiotic penicillin 4 times a day till gone. Warm salt water rinses to your mouth. Call your dentist at [facility] on Wednesday and see if they get you in the next few days to be reevaluated. Print Language: Thai Disposition Disposition: Home, Self Care What to do if you have Problems For any increased pain, shortness of breath, bleeding, nausea or vomiting, chestpain, or any unexpected problems, contact your Primary Care Provider. Call [facility] ([phone]) or report to the closest Emergency Room. Call 911 if necessary. 10/15/24 0742 <Electronically signed by Ignacio Cameron MD> Cosigner Signature (if applicable): CC: Dr. Daniel Douglas MD ~ Signed [facility] Work Phone: Evaluation note* Diagnosis Essential hypertension with goal blood pressure less than 130/85- Primary Screening for colon cancer Special screening for malignant neoplasms, colon [facility] Primary hypertension- Primary Unspecified essential hypertension Schizophrenic disorder (HCC) Unspecified schizophrenia, unspecified condition documented in this encounter [facility] note* Diagnosis Elevated glucose- Primary Other abnormal glucose documented in this encounter [facility] note* Diagnosis Positive fecal occult blood test- Primary Nonspecific abnormal finding in stool contents documented in this encounter [facility] note* Diagnosis Positive fecal occult blood test Nonspecific abnormal finding in stool contents documented in this encounter [facility] noteNo assessment information availableWEast [facility] Work Phone: Evaluation note* Diagnosis Screening for colon cancer- Primary Special screening for malignant neoplasms, colon Positive fecal occult blood test Nonspecific abnormal finding in stool contents documented in this encounter [facility] note* Diagnosis Essential hypertension with goal blood pressure less than 130/85- Primary Elevated glucose Other abnormal glucose Hyperlipidemia, unspecified hyperlipidemia type Schizophrenic disorder (HCC) Unspecified schizophrenia, unspecified condition Screening for depression Encounter for screening examination for other mental health and behavioral disorders documented in this encounter [facility] note* Diagnosis Acute pain of right knee documented in this encounter [facility] note* Diagnosis Primary hypertension- Primary Unspecified essential hypertension Schizophrenic disorder (HCC) Unspecified schizophrenia, unspecified condition Elevated glucose Other abnormal glucose Hyperlipidemia, unspecified hyperlipidemia type [facility] Additional Instructions Your CT of the brain does not show any signs of trauma or bleeding. Your CT of the face does not show any signs of trauma but does show signs of inflammation of your sinuses (sinusitis) on the right side. I suspect this is causing the swelling. The antibiotics will treat that. You may also take qidm-ebi-lwbgrzz ibuprofen or Tylenol to help with the discomfort.[facility] Work Phone: Hospital Discharge instructions Additional Instructions Tylenol Motrin for pain. The antibiotic penicillin 4 times a day till gone. Warm salt water rinses to your mouth. Call your dentist at [facility] on Wednesday and see if they get you in the next few days to be reevaluated.[facility] Work Phone: Reason for referral (narrative)* Outpatient Procedure (Routine) - Pending Review Specialty Diagnoses / Procedures Referred By Denisse de la cruz Referred To Contact [facility] Diagnoses Positive fecal occult blood test Procedures COLONOSCOPY DIAGNOSTIC COLONOSCOPY FLX DX W/COLLJ SPEC WHEN Elisabeth Gordon MD [address] [facility] [place] [address] [facility] [address] [address] Referral ID Status Reason Start Date Expiration Date Visits Requested Visits Authorized [id number] Pending Review Auto-Generat ed Referral 3 04/26/2024 1 1 [facility] for referral (narrative)* Outpatient Procedure (Routine) - Closed Specialty Diagnoses / Procedures Referred By Contac t Referred To Contact [facility] Diagnoses Positive fecal occult blood test Procedures COLONOSCOPY DIAGNOSTIC COLONOSCOPY FLX DX W/COLLJ SPEC WHEN Elisabeth Gordon MD [address] [facility] [place] [address] [facility] [address] [address] Referral ID Status Reason Start Date Expiration Date V isits Requested Visits Authorized [id number] Closed Auto-Generate d Referral 04/26/2023 04/26/2024 1 1 [facility] for referral (narrative)* Diagnostic Procedure Only (Urgent) - Closed Specialty Diagnoses / Procedures Referred By Contac t Referred To Contact XR IMAGING Diagnoses Acute pain of right knee Procedures XR KNEE GENERAL 4V AP BOTH/PA BOTH/LAT/MERC RIGHT RADIOLOGIC EXAM KNEE COMPLETE 4/MORE VIEWS Tawanna Sr APRN.EVENT HOST [address] [place] [address] Xr Imaging [facility] Referral ID Status Reason Start Date Expiration Date V isits Requested Visits Authorized [id number] Closed Auto-Generate d Referral 11/10/2021 12/10/2022 1 1 [facility] for referral (narrative)No reason for referral information [facility]White [facility] Work Phone: Reason for visit Narrative* Outpatient Procedure (Routine) - Closed Specialty Diagnoses / Procedures Referred By Contac t Referred To Contact [facility] Diagnoses Positive fecal occult blood test Procedures COLONOSCOPY DIAGNOSTIC COLONOSCOPY FLX DX W/COLLJ SPEC WHEN Elisabeht Gordon MD [address] [place] [address] [facility] [place] [address] [place] [address] Referral ID Status Reason Start Date Expiration Date V isits Requested Visits Authorized [id number] Closed Auto-Generate d Referral 04/26/2023 04/26/2024 1 1 [facility] N[facility]* Diagnostic Procedure Only (Urgent) - Closed Specialty Diagnoses / Procedures Referred By Denisse de la cruz Referred To Contact XR IMAGING Diagnoses Acute pain of right knee Procedures XR KNEE GENERAL 4V AP BOTH/PA BOTH/LAT/MERC RIGHT RADIOLOGIC EXAM KNEE COMPLETE 4/MORE VIEWS Tawanna Sr APRN.EVENT HOST [address] [place] [address] [place] [address] Referral ID Status Reason Start Date Expiration Date V isits Requested Visits Authorized [id number] Closed Auto-Generate d Referral 11/10/2021 12/10/2022 1 1 [facility] Advance Directives No Advanced Directives Records FoundDocuments on File Type Date Recorded Patient Facilities Maintenance Worker Expl anation Advance Directive(s) 12/24/2014 8:34 AM Documents on File Type Date Recorded Patient Facilities Maintenance Worker Expl anation Advance Directive(s) 05/12/2022 8:46 AM Documents on File Type Date Recorded Patient Facilities Maintenance Worker Expl anation Advance Directive(s) 05/12/2022 8:46 AM Advance Directive Response Recorded Date/ Time Living Will Yes April 29 4:07pm Power of Investment Banking Analyst Yes April 29, 2023 4:07pm Name of Medical Power of Investment Banking Analyst Jus Umaña April 29, 2023 4:07pm Advance Directive Response Recorded Date/ Time Living Will No October 15, 2024 7:34am Do you have a Healthcare Power of Investment Banking Analyst? No October 15, 2024 7:34am Advance Directive Response Recorded Date/ Time Living Will No October 15, 2024 7:34am Do you have a Healthcare Power of Investment Banking Analyst? No October 15, 2024 7:34am Do you have a Healthcare Power of Investment Banking Analyst? No November 28, 2024 1:36pm Reason for Referral Specialty Diagnoses / Procedures Referred By Denisse de la cruz Referred To Contact General Surgery Diagnoses Positive fecal occult blood test Procedures CONSULT TO GENERAL SURGERY OFFICE/OUTPATIENT [facility] MDM 60-74 MINUTES Beni Romano APRN.EVENT HOST [address] [place] [address] Referral ID Status Reason Start Date Expiration Date Visits Requested Visits Authorized [id number] Pending Review PCP Requested Referral 02/08/2023 02/08/2024 1 1 Chief Complaint and Reason for Visit Chief Complaint FALL Chief Complaint Admit Date dental October 15, 2024 7:1 6am Chief Complaint Admit Date dental October 15, 2024 7:1 6am dental November 28, 2024 12:51 pm Medications Administered Section Inactive Administered Medications - up to 3 most recent administrations Medication Order MAR Action Action Date Dose Rate Site diphenhydrAMINE 12.5-50 mg injection (BENADRYL) 12.5-50 mg, INTRAVENOUS, DIRECTED, Starting on Wed05/07/23 at 1200, Until Wed05/07/23 at 1559, DOSING DIRECTED BY PHYSICIAN FOR PROCEDURAL SEDATION ONLY, Intraprocedure Given 05/07/2023 11:43 AM EDT 50 mg fentaNYL 50 mcg/mL 25-100 mcg injection (SUBLIMAZE) 25-100 mcg, INTRAVENOUS, DIRECTED, Starting on Wed05/07/23 at 1200, Until Wed05/07/23 at 1559, DOSING DIRECTED BY PHYSICIAN FOR PROCEDURAL SEDATION ONLY, Intraprocedure Given 05/07/2023 11:54 AM EDT 50 mcg Given 05/07/2023 11:41 AM EDT 50 mcg lactated ringers iv infusion 75 mL/hr, INTRAVENOUS, CONTINUOUS, Starting on Wed05/07/23 at 1130, Until Wed05/07/23 at 1230, Preprocedure New Bag/Syringe/Bottle 05/07/2023 11:16 AM EDT 75 mL/hr 75 mL/hr Hand, Right midazolam 1-5 mg injection (VERSED) 1-5 mg, INTRAVENOUS, DIRECTED, Starting on Wed05/07/23 at 1200, Until Wed05/07/23 at 1559, DOSING DIRECTED BY PHYSICIAN FOR PROCEDURAL SEDATION ONLY, Intraprocedure Given 05/07/2023 11:58 AM EDT 2 mg Given 05/07/2023 11:45 AM EDT 2 mg Given 05/07/2023 11:41 AM EDT 3 mg Summary Purpose Family History No Family History Records FoundNo Family History Records Found Additional Source Comments Source Comments (unrecognize d section and content) In the event this informatio n is protected by the Federal Confidentiality of Alcohol and Drug Abuse Patient Records regulations: The Federal rules restrict any use of the information to criminally investigate or prosecute any alcohol or drug abuse patient.[facility] the event this information is protected by the Federal Confidentiality of Alcohol and Drug Abuse Patient Records regulations: The Federal rules restrict any use of the information to criminally investigate or prosecute any alcohol or drug abuse patient.[facility] Hospital[facility] the event this information is protected by the Federal Confidentiality of Alcohol and Drug Abuse Patient Records regulations: The Federal rules restrict any use of the information to criminally investigate or prosecute any alcohol or drug abuse patient.[facility] HospitalIn the event this information is protected by the Federal Confidentiality of Alcohol and Drug Abuse Patient Records regulations: The Federal rules restrict any use of the information to criminally investigate or prosecute any alcohol or drug abuse patient.[facility] Hospital[facility] the event this information is protected by the Federal Confidentiality of Alcohol and Drug Abuse Patient Records regulations: The Federal rules restrict any use of the information to criminally investigate or prosecute any alcohol or drug abuse patient.[facility] Hospital[facility] the event this information is protected by the Federal Confidentiality of Alcohol and Drug Abuse Patient Records regulations: The Federal rules restrict any use of the information to criminally investigate or prosecute any alcohol or drug abuse patient.[facility] HospitalIn the event this information is protected by the Federal Confidentiality of Alcohol and Drug Abuse Patient Records regulations: The Federal rules restrict any use of the information to criminally investigate or prosecute any alcohol or drug abuse patient.[facility] HospitalIn the event this information is protected by the Federal Confidentiality of Alcohol and Drug Abuse Patient Records regulations: The Federal rules restrict any use of the information to criminally investigate or prosecute any alcohol or drug abuse patient.[facility] Hospital[facility] the event this information is protected by the Federal Confidentiality of Alcohol and Drug Abuse Patient Records regulations: The Federal rules restrict any use of the information to criminally investigate or prosecute any alcohol or drug abuse patient.[facility] Hospital[facility] the event this information is protected by the Federal Confidentiality of Alcohol and Drug Abuse Patient Records regulations: The Federal rules restrict any use of the information to criminally investigate or prosecute any alcohol or drug abuse patient.[facility] HospitalIn the event this information is protected by the Federal Confidentiality of Alcohol and Drug Abuse Patient Records regulations: The Federal rules restrict any use of the information to criminally investigate or prosecute any alcohol or drug abuse patient.[facility] HospitalIn the event this information is protected by the Federal Confidentiality of Alcohol and Drug Abuse Patient Records regulations: The Federal rules restrict any use of the information to criminally investigate or prosecute any alcohol or drug abuse patient.[facility] Hospital[facility] the event this information is protected by the Federal Confidentiality of Alcohol and Drug Abuse Patient Records regulations: The Federal rules restrict any use of the information to criminally investigate or prosecute any alcohol or drug abuse patient.[facility] Reason for Visit (unrecogniz ed section and content) Reason Comments 6 Month Exam Reason Comments Results Reason Comments Clinical Update Reason Comments Results Reason Comments Consult + FOBT Specialty Diagnoses / Procedures Referred By Denisse de la cruz Referred To Contact General Surgery Diagnoses Positive fecal occult blood test Procedures CONSULT TO GENERAL SURGERY OFFICE/OUTPATIENT [facility] 60-74 MINUTES Beni Romano APRN.EVENT HOST [address] [place] [address] Referral ID Status Reason Start Date Expiration Date Visits Requested Visits Authorized [id number] Pending Review PCP Requested Referral 02/08/2023 02/08/2024 1 1 Reason Comments Fall Reason Comments F/U 6 Month Care Teams (unrecognized sec tion and content) Head Athletic Trainer Relationship Specialty Start Date End Date Daniel Douglas MD [address] [place] [address] PCP - General 03/28/07 Head Athletic Trainer Relationship Specialty Start Date End Date Daniel Douglas MD [address] [place] [address] PCP - General 03/28/07 Head Athletic Trainer Relationship Specialty Start Date End Date Daniel Douglas MD [address] [place] [address] PCP - General 03/28/07 Head Athletic Trainer Relationship Specialty Start Date End Date Daniel Douglas MD [address] [place] [address] PCP - General 03/28/07 Head Athletic Trainer Relationship Specialty Start Date End Date Daniel Douglas MD [address] [place] [address] PCP - General 03/28/07 Head Athletic Trainer Relationship Specialty Start Date End Date Daniel Douglas MD [address] [place] [address] PCP - General 03/28/07 Head Athletic Trainer Relationship Specialty Start Date End Date Daniel Douglas MD [address] [place] [address] PCP - General 03/28/07 Head Athletic Trainer Relationship Specialty Start Date End Date Daniel Douglas MD [address] [place] [address] PCP - General 03/28/07 Team Status: Active Member Role Status Dates Dr. Daniel Douglas MD Family Provider Active Dr. Daniel Douglas MD Primary Care Provider Active Team Status: Inactive Member Role Status Dates Dr. Daniel Douglas MD Primary Care Provider Active Dr. Iliana Dillon DO Emergency Provider Active Head Athletic Trainer Relationship Specialty Start Date End Date Daniel Douglas MD [address] [place], [place] [address] PCP - General 03/28/07 Head Athletic Trainer Relationship Specialty Start Date End Date Daniel Douglas MD [address] [place], [place] [address] [phone] PCP - General 03/28/07 Head Athletic Trainer Relationship Specialty Start Date End Date Daniel Douglas MD [address] [place] [address] PCP - General 03/28/07 Head Athletic Trainer Relationship Specialty Start Date End Date Daniel Douglas MD [address] [place] [address] PCP - General 03/28/07 Head Athletic Trainer Relationship Specialty Start Date End Date Daniel Douglas MD [address] [place] [address] PCP - General 03/28/07 Petra King APRN.EVENT HOST [address] [place] [address] Video Production Intern Family Medicine 06/11/24 Beni Romano APRN.EVENT HOST [address] [place] [address] Video Production Intern Family Medicine 06/20/24 Team Status: Active Member Role Status Dates Dr. Daniel Douglas MD Primary Care Provider Active Team Status: Inactive Member Role Status Dates Dr. Daniel Douglas MD Primary Care Provider Active Start: October 15, 2024 End: October 15, 2024 Dr. Ignacio Cameron MD Emergency Provider Active S tart: October 15, 2024 End: October 15, 2024 Team Status: Inactive Member Role Status Dates Dr. Daniel Douglas MD Primary Care Provider Active Start: October 15, 2024 End: October 15, 2024 Dr. Ignacio Cameron MD Attending Provider Active S tart: October 15, 2024 End: October 15, 2024 Dr. Ignacio Cameron MD Emergency Provider Active S tart: October 15, 2024 End: October 15, 2024 Team Status: Inactive Member Role Status Dates Dr. Daniel Douglas MD Primary Care Provider Active Start: November 28, 2024 End: November 28, 2024 Dr. Humberto Eagle DO Emergency Provider Activ e Start: November 28, 2024 End: November 28, 2024 Goals (unrecognized section and content) Goals may be documented in a n alternate sectionGoals may be documented in an alternate sectionGoals may be documented in an alternate section (unrecognized sect ion and content) No Status Records FoundNo Status Records Found INFORMATION SOURCE (unrecogn ized section and content) DATE CREATED AUTHOR 08/13/2024 [facility] DATE CREATED AUTHOR AUTHOR'S ORGANIZ ATION 12/01/2024 [facility] FOR RECORDS PERTAINING TO PATIENTS WHO ARE OR HAVE BEEN ENROLLED IN A CHEMICAL DEPENDENCY/SUBSTANCEABUSE PROGRAM, SOME INFORMATION MAY BE OMITTED. This clinical summary was aggregated from multiple sources. Caution should be exercised in using it in the provision of clinical care. This summary normalizes information from multiple sources, and as a consequence, information in this document may materially change the coding, format and clinical context of patient data. In addition, data may be omitted in some cases. CLINICAL DECISIONS SHOULD BE BASED ON THE PRIMARY CLINICAL RECORDS. [employer] provides no warranty or guarantee of the accuracy or completeness of information in this document.
--- NOTE | 2024-12-16 16:49 | EDS_ITS ---
HPI History of Present Illness Chief Complaint: Dental Informant: patient Narrative Narrative: 68-year-old male presenting to the emergency room with concern for dental infection. Patient states that 4 times he has had a dental abscess on the right side of his jaw. He states he has had numerous teeth removed. He states that he was in the emergency department a couple weeks ago and was diagnosed with a dental abscess and reportedly was placed on Augmentin. He has not followed up with a dentist. He states the swelling has returned and now he has swelling on the underside of his jaw. No definitive fevers. He denies any difficulty swallowing or opening his jaw. [facility] Medical History (Updated 12/16/24 @ 18:[address] Darren Cooley DO) Agitation Depression Anxiety Dental abscess Home Medications ?Medication ?Instructions ?Recorded ?Last Taken ?Type chlorpromazine 50 mg tablet 150 mg PO QHS 11/07/18 Unk nown History lisinopril 10 mg tablet 10 mg PO DAILY 11/07/18 Unkn own History amoxicillin 875 mg-potassium 875 mg PO Q12H #20 TABLET S 12/16/24 Unknown Rx clavulanate 125 mg tablet hydrocodone-acetaminophen 5-325mg 1 tab PO Q6H PRN aisha n 3 days #12 12/16/24 Unknown Rx 5mg-325mg tabs Allergy/AdvReac Type Severity Reaction Status Date / Time fluphenazine enanthate (From AdvReac Vomiting Verified 12/16/24 12:59 Prolixin) fluphenazine HCl (From AdvReac Vomiting Verified 12/16/24 12:59 Prolixin) haloperidol (From Haldol) AdvReac Other Verified 12/16/24 12:59 haloperidol lactate (From AdvReac Other Verified 12/16/24 12:59 Haldol) trifluoperazine (From AdvReac Vomiting Verified 12/16/24 12:59 Stelazine) Social History housing: house Smoking Status: Former smoker ROS ROS ED Constitutional Constitutional ED: Denies chills, fever(s) or weight loss Eyes Eyes: Denies change in vision or diplopia ENT ENT ED: Reports other Details: See history of present illness ; Denies ear pain, rhinorrhea or sore throat Cardiovascular Cardiovascular: Denies chest pain, orthopnea, palpitations or racing heartbeat Respiratory/Chest Respiratory/Chest: Denies cough, dyspnea or orthopnea Gastrointestinal Gastrointestinal: Denies abdominal pain, diarrhea, nausea or vomiting Genitourinary Genitourinary ED: Denies dysuria, hematuria or urinary frequency Musculoskeletal Musculoskeletal: Denies arthralgias or myalgias Integumentary Denies abscess or rash Neurologic Neurologic: Denies headache(s) or weakness Psychiatric Psychiatric: Denies anxiety, depression, suicidal ideation or suicidal thoughts Endocrine Endocrinology: Denies polydipsia, polyphagia or polyuria Allergic/Immunologic Allergic/Immunologic ED: Denies mouth swelling, tongue swelling or urticaria EXAM Physical Exam Const Vital Signs: 12/16/24 12:56 12/16/24 14:56 12/16/24 16:56 Temperature 98.2 F Temperature Source Oral Pulse Rate 110 H 93 92 Respiratory Rate 16 16 17 Blood Pressure 124/75 H 144/68 H Blood Pressure Mean 91 93 Pulse Ox 99 99 100 Oxygen Delivery Method Room Air Room Air Room Air 12/16/24 17:02 12/16/24 18:00 Temperature 98.4 F Temperature Source Oral Pulse Rate 96 88 Respiratory Rate 18 18 Blood Pressure 114/68 130/74 H Blood Pressure Mean 83 92 Pulse Ox 100 100 Oxygen Delivery Method Room Air Room Air Positive well nourished and well developed General Appearance ED: well developed HEENT Reports normocephalic, head/scalp atraumatic, TM's clear and moist mucous membranes HEENT Narrative: There is some mild swelling along the right lower mandible line. There is swelling noted in the submental space. However the floor the mouth is still soft the tongue is not protruding or being deviated. What appears to be may be a first premolar which is the posterior most right tooth that remains just behind that is what appears to be a fistula. I do not appreciate any drainable abscess. His voice appears normal. There is no overlying facial erythema. No trismus is noted. No stridor or hoarse voice. Tympanic Membrane ED: Yes TM's clear Eyes PERRL and EOMs intact bilaterally Neck no lymphadenopathy, supple and no JVD Resp normal respiratory effort and clear to auscultation bilaterally Cardio regular rate, regular rhythm and no murmurs GI normal to inspection, nondistended, normoactive bowel sounds and non-tender Palpation: soft Back/Spine no CVA tenderness and normal ROM Extremity normal to inspection General Extremety ED: Negative for edema General Extremity: Negative for edema Neuro oriented x3 and CN's II-XII intact bilaterally Sensorium / Orientation: alert Motor Exam: strength 5/5 throughout Psych mental status grossly normal Mood & Affect: Negative for depressed or tearful Skin no rashes or lesions noted and no wounds MDM MDM MDM Narrative Medical decision making narrative: Differential diagnosis includes dental abscess dental fistula Saúl's angina osteomyelitis cellulitis CT of the neck with IV contrast was obtained. This was read by radiology reviewed by myself. There appears to be some osteomyelitis of the mandible. As well as a small area of fluid collection. I do not believe that she he has Saúl's angina at this point. I stressed the importance that these patient needs to see oral maxillofacial surgery. I will give him local oral surgery and also advised that there are options in [place] and in [place]. I will be placing him on Augmentin and pain medication. Patient notes understanding as well as return instructions. We talked about possible complications and reasons to return to ED and he notes understanding. History & Record Review Discussion w/independent historian: Patient Additional record(s) reviewed:: Prior ED visit Lab Data Labs: Laboratory Results - last 24 hr 12/16/24 16:55 Sodium 134 Potassium 3.8 Chloride 98 Carbon Dioxide 24.1 Anion Gap 13 BUN 13 Creatinine 1.10 Estim Creat Clear Calc 65.44 Est GFR (MDRD) Non-Af 73 BUN/Creatinine Ratio 11.5 Glucose 115 H Calcium 10.6 Radiography Diagnostic Testing: Clinical Impression(s) from Imaging Studies Soft Tissue Neck CT 12/16/24 16:49 IMPRESSION: 1. Bony destruction and sclerosis of the right mandibular body, most compatible with osteomyelitis. However, carcinoma of the oropharynx could appear similar. Consultation to ENT should be considered. 2. Small rim enhancing fluid collection of the mental protuberance, most compatible with developing abscess/phlegmon. 3. Carious tooth #29. Reading Location: [id number] Discharge Plan Triage Chief Complaint: Dental ED Provider: Darren Cooley Dx/Rx/DC Orders Clinical Impression: Abscess, dental, Osteomyelitis of mandible Instructions: Osteomyelitis Dc Prescriptions: New hydrocodone-acetaminophen 5-325 mg tablet 1 tab PO Q6H PRN (Reason: pain) 3 Days Qty: 12 0RF amoxicillin-pot clavulanate 875-125 mg tablet 875 mg PO Q12H Qty: 20 0RF No Action lisinopril 10 MG tablet 10 mg PO DAILY Patient Comments: Take 1 tablet by mouth once daily. chlorpromazine 50 MG tablet 150 mg PO QHS Primary Care Provider: Delon Ocasio Referrals: Delon Ocasio MD [Primary Care Provider] - Activity Restrictions/Additional Instructions: You need to see an oral surgeon for the definitive treatment of this infection. Locally you may call [phone]? for an appoinment with oral surgery here in [place]. As an alternative, there are several oral surgeons in [place] and in [place] that you may call. I cannot stress enough how important it is that you follow-up with an oral surgeon. When you call for the appointment tell them you have an infection of the bone (the mandible). Please monitor yourself and if you are having difficulty swallowing/breathing opening your mouth experiencing high fevers or significant swelling please return to emergency. Print Language: Zambian Disposition Disposition: Home, Self Care
--- NOTE | 2024-12-16 16:49 | CT_ITS ---
PROCEDURE: SOFT TISSUE NECK WITH CONTRAST 12/16/2024 REASON FOR EXAM: NARCISA'S ANGINA TECHNIQUE: SOFT TISSUE NECK WITH CONTRAST CONTRAST: Isovue 370 VOLUME: 100 mL One or more dose reduction techniques were used (e.g., Automated exposure control, adjustment of the mA and/or kV according to patient size, use of iterative reconstruction technique). RADIATION DOSE SUMMARY: CTDlvol: 17 mGy DLP: 600 mGycm COMPARISON: None. FINDINGS: Airway: Midline and patent. Salivary glands: Unremarkable. Lymph nodes: No cervical chain lymphadenopathy. Thyroid: Unremarkable. Vasculature: Mild calcific plaque of the bilateral cervical carotid arteries. The visualized intracranial arteries are widely patent. Orbits: Unremarkable at visualized levels. Paranasal sinuses and mastoids: The paranasal sinuses and bilateral mastoid air cells are well-aerated. Lung apices: Mild biapical pleuro-parenchymal scarring. Upper mediastinum: Visualized mediastinum is unremarkable. Bones: Mild cervical spondylosis. Maxillary edentulism. There is bony destruction of the tooth #29, compatible with dental yair. Additional bony destruction and sclerosis of the anterior and posterior cortex is of the right mandibular body. Additional small rim enhancing low-density fluid collection at the mental protuberance, measuring 1.2 x 0.6 cm (sagittal image 60), with subtle associated cortical lucency and sclerosis. Soft tissues: Mild soft tissue swelling and stranding. No subcutaneous gas. CT/Soft Tissue Neck WITH Contrast IMPRESSION: 1. Bony destruction and sclerosis of the right mandibular body, most compatible with osteomyelitis. However, carcinoma of the oropharynx could appear similar. Consultation to ENT should be considered. 2. Small rim enhancing fluid collection of the mental protuberance, most compat ible with developing abscess/phlegmon. 3. Carious tooth #29. Reading Location: [id number]
[2024-12-16 16:56] VITALS: BP 144/68; PULSE 92; RESP 17; O2SAT 100
[2024-12-16 17:02] VITALS: BP 114/68; PULSE 96; RESP 18; TEMP 36.9; O2SAT 100
[2024-12-16 17:41] LABS: Anion Gap 13 (5-15); BUN 13 mg/dL (4-19); BUN/Creat Ratio 11.5 RATIO (10-20); Calcium,Total 10.6 mg/dL (7.6-11.0); Carbon Dioxide 24.1 mmol/L (21.0-32.0); Chloride 98 mmol/L (98-108); EST Glomerular Filtration Rate 73 (>60); Estimated Creatinine Clearance 65.44 ml/min (50-250); Glucose 115 mg/dL (70-99); Potassium 3.8 mmol/L (3.3-5.1); Sodium Level 134 mmol/L (133-145)
[2024-12-16 18:00] VITALS: BP 130/74; PULSE 88; RESP 18; O2SAT 100
--- NOTE | 2024-12-16 18:08 | CM.ED ---
Social Work: Check Processing Clerk verified that Advanced Care Directives are already in patient's medical records. No additional follow up needed at this time. Prema Sales, [employer], [employer] MANAGER
[2024-12-16] MEDS: Ondansetron ODT 4 MG Tablet PO (18:49)
[2024-12-16 18:50] VITALS: BP 139/77; PULSE 99; RESP 18; TEMP 36.6; O2SAT 100
== END 2024-12-16 18:54 | disposition home or self-care (01) ==
PROVIDERS: Emergency Provider Emergency Medicine; PCP Family Medicine; Visit Provider Emergency Medicine
DX: M27.2 Inflammatory conditions of jaws (principal); K04.7 Periapical abscess without sinus; F41.9 Anxiety disorder, unspecified; F32.A Depression, unspecified; Z79.899 Other long term (current) drug therapy; Z87.891 Personal history of nicotine dependence
CPT/HCPCS: 70491; 80048; 99283; Q9967; A4216

== ENCOUNTER → 2024-12-22 | Outpatient (CLI) | payer MEDICARE, SELFPAY | END | disposition home or self-care (01) | LOC: LABSPEC 15:20 | PROVIDERS: PCP Family Medicine; Referring Provider Dentist Oral and Maxillofacial Surgery; Visit Provider Dentist Oral and Maxillofacial Surgery | DX: L02.01 Cutaneous abscess of face (principal) | CPT/HCPCS: 87070; 87075; 87077; 87186; 87205 ==